=== PATIENT | female | born 1930 | race Caucasian/White ===

== ENCOUNTER 2017-11-12 05:04 | Emergency (ER) | payer MEDICARE, BC ==
[~2017-11-12] VITALS: Ht 127 cm; Wt 57.1 kg
[~2017-11-12 05:04] MED LIST: ATEN25TA72 PO; ATOR40TA71 PO; HYDR1TAB69 PO; LEVO112T5 PO; LISI40TA4 PO; MECL12.584 PO; METF500T4 PO
[2017-11-12] MEDS ORDERED: dexamethasone sod phosphate 10mg/ml inj IV STA (06:43)
[2017-11-12] MEDS ORDERED: ketorolac tromethamine 15mg/ml inj. IV ONE (06:45)
[2017-11-12] MEDS ORDERED: metoclopramide 5 mg/ml inj IV ONE (06:45)
[2017-11-12] MEDS ORDERED: normal saline 1000ml 1,000 ML IV SCH (06:45)
[2017-11-12 07:26] LABS: ALANINE AMINOTRANSFERASE 29 U/L (12-78); ALBUMIN 3.6 G/DL (3.4-5.0); ALBUMIN/GLOBULIN RATIO 1.1 (1.1-1.5); ALKALINE PHOSPHATASE 84 IU/L (46-116); ANION GAP 9 (8-16); ASPARTATE AMINO TRANSFERASE 22 U/L (10-37); BILIRUBIN,TOTAL 1.2 MG/DL (0.1-1.0); BLOOD UREA NITROGEN 12 MG/DL (7-18); CALCIUM 9.1 MG/DL (8.5-10.1); CHLORIDE 107 MMOL/L (99-107); GLUCOSE 102 MG/DL (70-104); POTASSIUM 3.9 MMOL/L (3.5-5.1); SODIUM 143 MMOL/L (135-145); TOTAL CARBON DIOXIDE 27.3 MMOL/L (24-32); TOTAL PROTEIN 6.9 G/DL (6.4-8.2); eGFR 68 ML/MIN
[2017-11-12 09:35] VITALS: BP 182/83
== END 2017-11-12 09:42 | disposition home or self-care (01) ==
LOC: ER 05:04
DX: R51 Headache (principal); I10 Essential (primary) hypertension; E11.9 Type 2 diabetes mellitus without complications; R10.84 Generalized abdominal pain; G89.29 Other chronic pain; E03.9 Hypothyroidism, unspecified; Z90.49 Acquired absence of other specified parts of digestive tract; Z79.899 Other long term (current) drug therapy
CPT/HCPCS: 36415; 70450; 80053; 85651; 96361; 96374; 96375; 99285; J1100; J1885; J2765; J7030

== ENCOUNTER 2017-11-16 15:29 | Emergency (ER) | payer MEDICARE, BC ==
[~2017-11-16] VITALS: Ht 149.9 cm; Wt 50.9 kg
[2017-11-16] MEDS ORDERED: normal saline 1000ml 1,000 ML IV ONE (15:52)
[2017-11-16] MEDS ORDERED: morphine 2 MG/ML inj. syringe IV PRN (15:55)
[2017-11-16] MEDS ORDERED: normal saline 1000ML IV soln IVB ONE (15:55)
[2017-11-16] MEDS ORDERED: proCHLORperazine 10 MG/2 ml inj IV ONE (15:55)
[2017-11-16 16:35] LABS: MEAN CORPUSCULAR HGB CONC 35.4 % (33.0-36.5); NEUTROPHILS # (AUTO) 9.3 X10'3 (1.8-7.7)
[2017-11-16 16:37] LABS: BASOPHILS % (AUTO) 0.4 % (0-1); EOSINOPHILS # (AUTO) 0.2 X10'3 (0-0.9); EOSINOPHILS % (AUTO) 1.9 % (0-6); HEMATOCRIT 50.7 % (35.0-45.0); HEMOGLOBIN 17.9 g/dl (12.0-16.0); LYMPHOCYTES # (AUTO) 1.2 X10'3 (1.1-4.8); LYMPHOCYTES % (AUTO) 10.6 % (21-51); MEAN CORPUSCULAR HEMOGLOBIN 32.4 PG (27.0-31.0); MEAN CORPUSCULAR VOLUME 91.6 FL (78-98); MEAN PLATELET VOLUME 9.3 FL (7.4-10.4); MONOCYTES # (AUTO) 0.4 X10'3 (0-0.9); MONOCYTES % (AUTO) 3.2 % (2-12); NEUTROPHILS % (AUTO) 83.9 % (42-75); PLATELET COUNT 239 X10'3 (140-440); RED BLOOD COUNT 5.54 X10'6 (4.20-5.60); RED CELL DISTRIBUTION WIDTH 13.1 % (11.5-14.5); WHITE BLOOD COUNT 11.1 X10'3 (4.5-11.0)
[2017-11-16 16:43] LABS: PARTIAL THROMBOPLASTIN TIME 25 SECONDS (22-32); PROTHROMBIN TIME 9.9 SECONDS (9.0-12.0)
[2017-11-16 16:53] LABS: ALANINE AMINOTRANSFERASE 29 U/L (12-78); ALBUMIN/GLOBULIN RATIO 1.1 (1.1-1.5); ALKALINE PHOSPHATASE 103 IU/L (46-116); ANION GAP 11 (8-16); ASPARTATE AMINO TRANSFERASE 20 U/L (10-37); BILIRUBIN,TOTAL 1.6 MG/DL (0.1-1.0); BLOOD UREA NITROGEN 15 MG/DL (7-18); BUN/CREATININE RATIO 16.7 (6.6-38.0); CALCIUM 9.6 MG/DL (8.5-10.1); CHLORIDE 100 MMOL/L (99-107); GLUCOSE 134 MG/DL (70-104); LIPASE 212 U/L (73-393); MAGNESIUM 1.7 MG/DL (1.5-2.4); POTASSIUM 3.6 MMOL/L (3.5-5.1); SODIUM 140 MMOL/L (135-145); TOTAL CARBON DIOXIDE 29.2 MMOL/L (24-32); TOTAL PROTEIN 7.8 G/DL (6.4-8.2); eGFR 60 ML/MIN
[2017-11-16] MEDS: diatr meglu/diatrizoate 30ml oral sol.-(3 dose) bottle PO SCH ×3 (18:08→19:29)
[2017-11-16] MEDS ORDERED: iohexol 300mg/ml 100ml inj. ONE (18:31)
[2017-11-16 22:01] LABS: CLARITY,URINE CLEAR (Clear); COLOR,URINE YELLOW (Yellow); GLUCOSE, URINE NEGATIVE (Neg); KETONES,URINE 40 mg/dl (Neg); LEUKOCYTE ESTERASE ,URINE NEGATIVE (Neg); NITRITES, URINE NEGATIVE (Neg); OCCULT BLOOD,URINE NEGATIVE (Neg); PH,URINE 7.5 (4.8-8.0); PROTEIN,URINE NEGATIVE (Neg)
[2017-11-16 22:02] LABS: UA COLLECTION TYPE OTHER
[2017-11-16] MEDS ORDERED: dicyclomine 10 MG capsule PO ONE (22:20)
[2017-11-16] MEDS ORDERED: ONDA4TAB9 SL (22:21)
[2017-11-16] MEDS ORDERED: DICY10CA88 PO (22:21)
[2017-11-16 22:56] VITALS: BP 126/89
== END 2017-11-16 23:00 | disposition home or self-care (01) ==
LOC: ER 15:30
DX: R10.84 Generalized abdominal pain (principal); E86.0 Dehydration; I10 Essential (primary) hypertension; E11.9 Type 2 diabetes mellitus without complications; E03.9 Hypothyroidism, unspecified; Z90.49 Acquired absence of other specified parts of digestive tract; Z79.84 Long term (current) use of oral hypoglycemic drugs
CPT/HCPCS: 36415; 71045; 74018; 74177; 80053; 81003; 83605; 83690; 83735; 84484; 85025; 85610; 85730; 87040; 87502; 87503; 93005; 96361; 96374; 96375; 99285; J0780; J2270; J7030; Q9963; Q9967

== ENCOUNTER 2017-11-25 16:58 | Inpatient (IN) | payer MEDICARE, BC ==
[~2017-11-25] VITALS: Ht 152.4 cm; Wt 54.5 kg
[~2017-11-25 16:58] MED LIST changes: +DICY10CA88 PO
[2017-11-25] MEDS ORDERED: morphine 2 MG/ML inj. syringe IV ONE (17:40)
[2017-11-25] MEDS ORDERED: normal saline 1000ML IV soln IV ONE (17:40)
[2017-11-25] MEDS ORDERED: ondansetron/PF 4mg/2ml inj IV ONE (17:40)
[2017-11-25 18:45] LABS: ALANINE AMINOTRANSFERASE 20 U/L (12-78); ALBUMIN 2.9 G/DL (3.4-5.0); ALBUMIN/GLOBULIN RATIO 0.8 (1.1-1.5); ALKALINE PHOSPHATASE 92 IU/L (46-116); ANION GAP 12 (8-16); ASPARTATE AMINO TRANSFERASE 16 U/L (10-37); BILIRUBIN,TOTAL 0.6 MG/DL (0.1-1.0); BLOOD UREA NITROGEN 27 MG/DL (7-18); BUN/CREATININE RATIO 24.3 (6.6-38.0); CHLORIDE 101 MMOL/L (99-107); CREATININE 1.11 MG/DL (0.40-0.90); GLUCOSE 148 MG/DL (70-104); LIPASE 310 U/L (73-393); SODIUM 141 MMOL/L (135-145); TOTAL CARBON DIOXIDE 28.3 MMOL/L (24-32); TOTAL PROTEIN 6.7 G/DL (6.4-8.2); eGFR 47 ML/MIN
[2017-11-25 18:49] LABS: CALCIUM 9.3 MG/DL (8.5-10.1)
[2017-11-25 18:50] LABS: POTASSIUM 2.8 MMOL/L (3.5-5.1)
[2017-11-25 19:00] LABS: BASOPHILS # (AUTO) 0.1 X10'3 (0-0.2); BASOPHILS % (AUTO) 0.5 % (0-1); EOSINOPHILS # (AUTO) 0.1 X10'3 (0-0.9); EOSINOPHILS % (AUTO) 0.6 % (0-6); HEMATOCRIT 42.5 % (35.0-45.0); HEMOGLOBIN 14.6 g/dl (12.0-16.0); LYMPHOCYTES # (AUTO) 1.5 X10'3 (1.1-4.8); LYMPHOCYTES % (AUTO) 8.8 % (21-51); MEAN CORPUSCULAR HEMOGLOBIN 32.3 PG (27.0-31.0); MEAN CORPUSCULAR HGB CONC 34.3 % (33.0-36.5); MEAN CORPUSCULAR VOLUME 94.3 FL (78-98); MEAN PLATELET VOLUME 9.5 FL (7.4-10.4); MONOCYTES # (AUTO) 0.9 X10'3 (0-0.9); MONOCYTES % (AUTO) 4.9 % (2-12); NEUTROPHILS # (AUTO) 14.8 X10'3 (1.8-7.7); NEUTROPHILS % (AUTO) 85.2 % (42-75); PLATELET COUNT 361 X10'3 (140-440); RED CELL DISTRIBUTION WIDTH 13.1 % (11.5-14.5); WHITE BLOOD COUNT 17.4 X10'3 (4.5-11.0)
[2017-11-25] MEDS ORDERED: potassium Cl 20 mEq/100mL bag IV ONE (19:20)
[2017-11-25] MEDS ORDERED: CefTRIAXone 2gm/NS 100ml IVPB 100 ML IV ONE (19:20)
[2017-11-25] MEDS: potassium 10mEq/100ml NS w/LIDOcaine (10mg/bag) IV SCH ×3 (19:42→23:32)
[2017-11-25 19:48] LABS: CLARITY,URINE SLIGHTLY CLOUDY (Clear); COLOR,URINE YELLOW (Yellow); GLUCOSE, URINE NEGATIVE (Neg); KETONES,URINE 15 mg/dl (Neg); LEUKOCYTE ESTERASE ,URINE NEGATIVE (Neg); NITRITES, URINE NEGATIVE (Neg); OCCULT BLOOD,URINE NEGATIVE (Neg); PROTEIN,URINE NEGATIVE (Neg)
[2017-11-25 19:50] LABS: UA COLLECTION TYPE STRAIGHT CATH
[2017-11-25 19:58] LABS: BACTERIA,URINE FEW /HPF (Neg); MUCUS STRANDS MODERATE /LPF (Neg); RBC,URINE 0-2 /HPF (0-2); SQUAMOUS EPITHELIAL CELL,UR NONE SEEN /LPF (FEW); WBC,URINE 0-4 /HPF (0-4)
[2017-11-25] MEDS ORDERED: pantoprazole 40 MG vial IV ONE (20:30)
[2017-11-25] MEDS ORDERED: pantoprazole IV 80 MG in normal saline 100ml IV soln 100 ML IV ONE (20:30)
[2017-11-25] MEDS ORDERED: ondansetron/PF 4mg/2ml inj IV PRN (20:40)
[2017-11-25] MEDS ORDERED: Potassium Cl inj 20 MEQ in normal saline 1000ml 990 ML IV SCH (20:40)
[2017-11-25 20:42] LABS: OCCULT BLOOD STOOL POSITIVE (Neg)
[2017-11-25 22:20] VITALS: BP 104/53
[2017-11-26] VITALS: BP 106/66
[2017-11-26] MEDS: potassium 10mEq/100ml NS w/LIDOcaine (10mg/bag) IV SCH (00:45)
[2017-11-26 06:04] LABS: BASOPHILS # (AUTO) 0.1 X10'3 (0-0.2); BASOPHILS % (AUTO) 0.5 % (0-1); EOSINOPHILS # (AUTO) 0.4 X10'3 (0-0.9); EOSINOPHILS % (AUTO) 3.4 % (0-6); HEMATOCRIT 33.8 % (35.0-45.0); HEMOGLOBIN 11.8 g/dl (12.0-16.0); LYMPHOCYTES # (AUTO) 1.5 X10'3 (1.1-4.8); LYMPHOCYTES % (AUTO) 12.4 % (21-51); MEAN CORPUSCULAR HEMOGLOBIN 32.6 PG (27.0-31.0); MEAN CORPUSCULAR HGB CONC 34.8 % (33.0-36.5); MEAN CORPUSCULAR VOLUME 93.6 FL (78-98); MEAN PLATELET VOLUME 9.3 FL (7.4-10.4); MONOCYTES # (AUTO) 0.9 X10'3 (0-0.9); MONOCYTES % (AUTO) 7.4 % (2-12); NEUTROPHILS # (AUTO) 9.1 X10'3 (1.8-7.7); NEUTROPHILS % (AUTO) 76.3 % (42-75); PLATELET COUNT 255 X10'3 (140-440); RED BLOOD COUNT 3.62 X10'6 (4.20-5.60); RED CELL DISTRIBUTION WIDTH 13.1 % (11.5-14.5)
[2017-11-26 06:46] LABS: ALANINE AMINOTRANSFERASE 18 U/L (12-78); ALBUMIN 2.1 G/DL (3.4-5.0); ALBUMIN/GLOBULIN RATIO 0.7 (1.1-1.5); ALKALINE PHOSPHATASE 68 IU/L (46-116); ANION GAP 9 (8-16); ASPARTATE AMINO TRANSFERASE 15 U/L (10-37); BILIRUBIN,TOTAL 0.4 MG/DL (0.1-1.0); BLOOD UREA NITROGEN 20 MG/DL (7-18); BUN/CREATININE RATIO 22.5 (6.6-38.0); CALCIUM 7.6 MG/DL (8.5-10.1); CHLORIDE 111 MMOL/L (99-107); CREATININE 0.89 MG/DL (0.40-0.90); GLUCOSE 79 MG/DL (70-104); POTASSIUM 3.9 MMOL/L (3.5-5.1); SODIUM 144 MMOL/L (135-145); TOTAL CARBON DIOXIDE 24.1 MMOL/L (24-32); eGFR 60 ML/MIN
[2017-11-26] MEDS ORDERED: pantoprazole 40 MG vial IV SCH (08:00)
[2017-11-26] MEDS ORDERED: metoprolol tartrate 50mg tablet PO SCH (08:00)
[2017-11-26 11:00] VITALS: BP 109/68
[2017-11-26] MEDS ORDERED: ATOR20TA66 PO (12:34)
[2017-11-26] MEDS ORDERED: normal saline 1000ml 1,000 ML IV SCH (14:48)
[2017-11-26] MEDS ORDERED: LIDOcaine Viscous 15ml cup PO ONE (14:50)
[2017-11-26] MEDS ORDERED: MIDAZolam 1mg/ml 10ml vial IV PRN (14:50)
[2017-11-26] MEDS ORDERED: fentaNYL/PF 50MCG/1 ML 2ML syringe IV PRN (14:50)
[2017-11-26] MEDS ORDERED: simethicone 40mg/0.6ml oral drops 30ml MC ONE (14:50)
[2017-11-26] MEDS ORDERED: fentaNYL/PF 50MCG/1 ML 2ML syringe ONE (15:23)
[2017-11-26] MEDS ORDERED: LIDOcaine Viscous 15ml cup ONE (15:23)
[2017-11-26] MEDS ORDERED: MIDAZolam 1mg/ml 10ml vial ONE (15:23)
[2017-11-26] MEDS ORDERED: levoFLOXACIN-Levaquin 500mg/D5 100 ML IV SCH (16:00)
[2017-11-26] MEDS ORDERED: pantoprazole 40MG/NS 100ML BAG 100 ML IV SCH (16:00)
[2017-11-26] MEDS ORDERED: lactobacillus rhamnosus 10,000 MMU CELLS/CAPSULE PO SCH (17:30)
[2017-11-27] MEDS ORDERED: LISI-600 PO (03:09)
[2017-11-27] MEDS ORDERED: LEVO112T5 PO (03:09)
[2017-11-27] MEDS ORDERED: FLU VACC QS2017-18 36MOS UP/PF 60 MCG/0.5 ML SYRINGE IMVAC ONE (10:00)
== END 2017-11-26 18:00 | disposition left against medical advice (07) | DRG 392 ==
LOC: ER 16:59 → ED HOLD 20:36 → SUR 3N 22:15
PROVIDERS: ADMIT Internal Medicine; ATTEND Family Medicine
DX: K29.80 Duodenitis without bleeding (principal); E86.0 Dehydration; E11.9 Type 2 diabetes mellitus without complications; K92.1 Melena; E87.6 Hypokalemia; E03.9 Hypothyroidism, unspecified; H91.90 Unspecified hearing loss, unspecified ear; I10 Essential (primary) hypertension; Z53.21 Procedure and treatment not carried out due to patient leaving prior to being seen by health care provider; Z90.49 Acquired absence of other specified parts of digestive tract; Z79.899 Other long term (current) drug therapy; Z28.21 Immunization not carried out because of patient refusal
CPT/HCPCS: 36415; 71045; 74176; 80053; 81001; 82272; 83605; 83690; 84145; 85025; 87040; 87070; 87502; 87503; 96361; 96365; 96375; 99285; A4310; A4344; C9113; J0696; J2250; J2270; J2405; J3010; J3480; J7030

== ENCOUNTER 2017-11-27 01:25 | Inpatient (IN) | payer MEDICARE, BC ==
[2017-11-27] VITALS (9 sets, daily range): BP systolic 89–146; BP diastolic 58–68
[~2017-11-27] VITALS: Ht 149.9 cm; Wt 55.5 kg
[~2017-11-27 01:25] MED LIST changes: -ATEN25TA72 PO; +ATOR20TA66 PO; -ATOR40TA71 PO; -DICY10CA88 PO; -HYDR1TAB69 PO; -LEVO112T5 PO; -LISI40TA4 PO; -MECL12.584 PO; -METF500T4 PO
[2017-11-27] MEDS ORDERED: pantoprazole 40mg Tablet.DR PO ONE (01:50)
[2017-11-27 02:17] LABS: BASOPHILS % (AUTO) 0.5 % (0-1); EOSINOPHILS # (AUTO) 0.3 X10'3 (0-0.9); EOSINOPHILS % (AUTO) 2.7 % (0-6); HEMATOCRIT 36.8 % (35.0-45.0); HEMOGLOBIN 12.7 g/dl (12.0-16.0); LYMPHOCYTES # (AUTO) 1.4 X10'3 (1.1-4.8); LYMPHOCYTES % (AUTO) 14.1 % (21-51); MEAN CORPUSCULAR HEMOGLOBIN 32.8 PG (27.0-31.0); MEAN CORPUSCULAR HGB CONC 34.6 % (33.0-36.5); MEAN PLATELET VOLUME 8.6 FL (7.4-10.4); MONOCYTES # (AUTO) 0.6 X10'3 (0-0.9); MONOCYTES % (AUTO) 6.4 % (2-12); NEUTROPHILS # (AUTO) 7.4 X10'3 (1.8-7.7); NEUTROPHILS % (AUTO) 76.3 % (42-75); PLATELET COUNT 324 X10'3 (140-440); RED BLOOD COUNT 3.87 X10'6 (4.20-5.60); RED CELL DISTRIBUTION WIDTH 13.3 % (11.5-14.5); WHITE BLOOD COUNT 9.7 X10'3 (4.5-11.0)
[2017-11-27 02:23] LABS: PARTIAL THROMBOPLASTIN TIME 26 SECONDS (22-32)
[2017-11-27 02:25] LABS: ALANINE AMINOTRANSFERASE 18 U/L (12-78); ALBUMIN 2.7 G/DL (3.4-5.0); ALBUMIN/GLOBULIN RATIO 0.8 (1.1-1.5); ALKALINE PHOSPHATASE 87 IU/L (46-116); ANION GAP 9 (8-16); ASPARTATE AMINO TRANSFERASE 19 U/L (10-37); BILIRUBIN,TOTAL 0.3 MG/DL (0.1-1.0); BLOOD UREA NITROGEN 12 MG/DL (7-18); BUN/CREATININE RATIO 15.2 (6.6-38.0); CALCIUM 8.5 MG/DL (8.5-10.1); CHLORIDE 110 MMOL/L (99-107); CREATININE 0.79 MG/DL (0.40-0.90); GLUCOSE 110 MG/DL (70-104); LIPASE 456 U/L (73-393); MAGNESIUM 1.6 MG/DL (1.5-2.4); POTASSIUM 3.4 MMOL/L (3.5-5.1); SODIUM 147 MMOL/L (135-145); TOTAL CARBON DIOXIDE 27.8 MMOL/L (24-32); TOTAL PROTEIN 6.3 G/DL (6.4-8.2); eGFR 69 ML/MIN
[2017-11-27] MEDS ORDERED: LISI-600 PO (03:09)
[2017-11-27] MEDS ORDERED: LEVO112T5 PO (03:09)
[2017-11-27] MEDS ORDERED: potassium Cl 20 mEq SR tablet PO PRN ×2 (03:10)
[2017-11-27] MEDS ORDERED: magnesium 2GM in 50ml NS 50 ML IV PRN (03:10)
[2017-11-27] MEDS ORDERED: mag hydrox/Alum hydrox/simeth 30ml oral suspension PO PRN (03:10)
[2017-11-27] MEDS ORDERED: ondansetron/PF 4mg/2ml inj IV PRN (03:10)
[2017-11-27] MEDS ORDERED: magnesium hydroxide 30ml (MOM) UD suspension PO PRN (03:10)
[2017-11-27] MEDS ORDERED: magnesium 4gm in 100ml NS 100 ML IV PRN (03:10)
[2017-11-27] MEDS ORDERED: acetaminophen 325mg tablet PO PRN (03:10)
[2017-11-27] MEDS ORDERED: potassium Cl 40MEQ/NS 500ml 500 ML IV PRN ×2 (03:10)
[2017-11-27] MEDS ORDERED: magnesium Cl slow-release 64mg tablet PO PRN (03:10)
[2017-11-27 03:30] LABS: HEMOGLOBIN A1C 5.2 % (4.5-6.2)
[2017-11-27] MEDS: potassium Cl 20mEq in NS 1,000 ML IV SCH ×3 (04:12→23:06)
[2017-11-27] MEDS: pantoprazole 40MG/NS 100ML BAG 100 ML IV SCH ×5 (05:57→23:10)
[2017-11-27] MEDS: K and/or MAG REPLACEMENT MC SCH (07:38)
[2017-11-27] MEDS ORDERED: LIDOcaine 1% 30ml vial 5 ML in potassium Cl 40MEQ/NS 500ml 500 ML IV ONE (09:50)
[2017-11-27] MEDS ORDERED: LIDOcaine 1% 30ml vial 5 ML in potassium Cl 40MEQ/NS 500ml 500 ML IV PRN (10:34)
[2017-11-27] MEDS: levoTHYROXINE 112mcg tablet PO SCH (14:25)
[2017-11-27] MEDS ORDERED: LIDOcaine Viscous 15ml cup ONE (16:40)
[2017-11-27] MEDS ORDERED: fentaNYL/PF 50MCG/1 ML 2ML syringe ONE (16:40)
[2017-11-27] MEDS ORDERED: MIDAZolam 1mg/ml 10ml vial ONE (16:40)
[2017-11-27] MEDS ORDERED: normal saline 1000ml 1,000 ML IV SCH (17:38)
[2017-11-27] MEDS ORDERED: fentaNYL/PF 50MCG/1 ML 2ML syringe IV PRN (17:40)
[2017-11-27] MEDS ORDERED: simethicone 40mg/0.6ml oral drops 30ml MC ONE (17:40)
[2017-11-27] MEDS ORDERED: MIDAZolam 5mg/5ml vial IV PRN (17:40)
[2017-11-27] MEDS ORDERED: LIDOcaine Viscous 15ml cup PO ONE (17:40)
[2017-11-28] VITALS: BP 122/53
[2017-11-28] MEDS: pantoprazole 40MG/NS 100ML BAG 100 ML IV SCH ×4 (04:31→21:36)
[2017-11-28 05:48] LABS: BASOPHILS # (AUTO) 0.1 X10'3 (0-0.2); BASOPHILS % (AUTO) 1.1 % (0-1); EOSINOPHILS # (AUTO) 0.2 X10'3 (0-0.9); EOSINOPHILS % (AUTO) 4.1 % (0-6); HEMATOCRIT 30.9 % (35.0-45.0); HEMOGLOBIN 10.8 g/dl (12.0-16.0); LYMPHOCYTES # (AUTO) 1.2 X10'3 (1.1-4.8); LYMPHOCYTES % (AUTO) 23.6 % (21-51); MEAN CORPUSCULAR HEMOGLOBIN 32.6 PG (27.0-31.0); MEAN CORPUSCULAR HGB CONC 34.9 % (33.0-36.5); MEAN CORPUSCULAR VOLUME 93.4 FL (78-98); MEAN PLATELET VOLUME 8.5 FL (7.4-10.4); MONOCYTES # (AUTO) 0.5 X10'3 (0-0.9); MONOCYTES % (AUTO) 9.8 % (2-12); NEUTROPHILS # (AUTO) 3.1 X10'3 (1.8-7.7); NEUTROPHILS % (AUTO) 61.4 % (42-75); PLATELET COUNT 243 X10'3 (140-440); RED CELL DISTRIBUTION WIDTH 13.3 % (11.5-14.5); WHITE BLOOD COUNT 5.1 X10'3 (4.5-11.0)
[2017-11-28 06:52] LABS: ALANINE AMINOTRANSFERASE 20 U/L (12-78); ALBUMIN 2.2 G/DL (3.4-5.0); ALBUMIN/GLOBULIN RATIO 0.8 (1.1-1.5); ALKALINE PHOSPHATASE 69 IU/L (46-116); ANION GAP 9 (8-16); ASPARTATE AMINO TRANSFERASE 18 U/L (10-37); BILIRUBIN,TOTAL 0.4 MG/DL (0.1-1.0); BLOOD UREA NITROGEN 6 MG/DL (7-18); BUN/CREATININE RATIO 7.7 (6.6-38.0); CALCIUM 7.9 MG/DL (8.5-10.1); CHLORIDE 112 MMOL/L (99-107); CHOL/HDL RATIO 3.1 (0.00-4.99); CHOLESTEROL 112 MG/DL (0-200); CREATININE 0.78 MG/DL (0.40-0.90); GLUCOSE 77 MG/DL (70-104); HDL CHOLESTEROL 36 MG/DL (35-60); LDL CHOLESTEROL 58 MG/DL (50-100); MAGNESIUM 1.4 MG/DL (1.5-2.4); POTASSIUM 4.5 MMOL/L (3.5-5.1); SODIUM 145 MMOL/L (135-145); TOTAL CARBON DIOXIDE 23.6 MMOL/L (24-32); TRIGLYCERIDES 107 MG/DL (20-135); eGFR 70 ML/MIN
[2017-11-28 07:00] VITALS: BP 132/59
[2017-11-28] MEDS ORDERED: dextrose 50%-water 50ml dispensing syringe IV PRN ×2 (07:30)
[2017-11-28] MEDS ORDERED: MESSAGE TO PHARMACY PO ONE (07:30)
[2017-11-28] MEDS ORDERED: glucagon, human recombinant 1mg kit SUBCUT PRN (07:30)
[2017-11-28] MEDS ORDERED: insulin Lispro (HumaLOG) vial - multi-dose SQ SCH (07:30)
[2017-11-28] MEDS ORDERED: dextrose ORAL solution 15 GM/59 ML bottle PO PRN ×2 (07:30)
[2017-11-28] MEDS: potassium Cl 20mEq in NS 1,000 ML IV SCH ×2 (07:43→19:44)
[2017-11-28] MEDS: atorvastatin 20mg tablet PO SCH (07:43)
[2017-11-28] MEDS: levoTHYROXINE 112mcg tablet PO SCH (07:43)
[2017-11-28] MEDS: lisinopril 20mg tablet PO SCH (07:43)
[2017-11-28] MEDS: K and/or MAG REPLACEMENT MC SCH (08:00)
[2017-11-28 08:13] LABS: HEMATOCRIT 33.8 % (35.0-45.0); HEMOGLOBIN 11.6 g/dl (12.0-16.0); MEAN CORPUSCULAR HEMOGLOBIN 32.2 PG (27.0-31.0); MEAN CORPUSCULAR HGB CONC 34.3 % (33.0-36.5); MEAN CORPUSCULAR VOLUME 93.9 FL (78-98); MEAN PLATELET VOLUME 8.4 FL (7.4-10.4); PLATELET COUNT 284 X10'3 (140-440); RED CELL DISTRIBUTION WIDTH 13.3 % (11.5-14.5); WHITE BLOOD COUNT 5.6 X10'3 (4.5-11.0)
[2017-11-28 11:00] VITALS: BP 133/62
[2017-11-28 15:31] LABS: HEMATOCRIT 34.4 % (35.0-45.0); HEMOGLOBIN 11.9 g/dl (12.0-16.0); MEAN CORPUSCULAR HEMOGLOBIN 32.4 PG (27.0-31.0); MEAN CORPUSCULAR HGB CONC 34.7 % (33.0-36.5); MEAN CORPUSCULAR VOLUME 93.3 FL (78-98); MEAN PLATELET VOLUME 8.3 FL (7.4-10.4); PLATELET COUNT 290 X10'3 (140-440); RED BLOOD COUNT 3.69 X10'6 (4.20-5.60); RED CELL DISTRIBUTION WIDTH 13.4 % (11.5-14.5); WHITE BLOOD COUNT 5.9 X10'3 (4.5-11.0)
[2017-11-28] MEDS: insulin glargine (Lantus) pen - multi-dose SQ SCH (19:46)
[2017-11-28 20:00] VITALS: BP 137/66
[2017-11-29] VITALS: BP 126/70
[2017-11-29] MEDS: pantoprazole 40MG/NS 100ML BAG 100 ML IV SCH ×5 (01:00→22:20)
[2017-11-29 01:07] LABS: BASOPHILS # (AUTO) 0.1 X10'3 (0-0.2); BASOPHILS % (AUTO) 1.5 % (0-1); EOSINOPHILS # (AUTO) 0.3 X10'3 (0-0.9); EOSINOPHILS % (AUTO) 4.1 % (0-6); HEMATOCRIT 31.7 % (35.0-45.0); LYMPHOCYTES # (AUTO) 1.2 X10'3 (1.1-4.8); LYMPHOCYTES % (AUTO) 19.7 % (21-51); MEAN CORPUSCULAR HEMOGLOBIN 32.6 PG (27.0-31.0); MEAN CORPUSCULAR HGB CONC 34.8 % (33.0-36.5); MEAN CORPUSCULAR VOLUME 93.8 FL (78-98); MEAN PLATELET VOLUME 8.9 FL (7.4-10.4); MONOCYTES # (AUTO) 0.5 X10'3 (0-0.9); MONOCYTES % (AUTO) 7.8 % (2-12); NEUTROPHILS # (AUTO) 4.1 X10'3 (1.8-7.7); NEUTROPHILS % (AUTO) 66.9 % (42-75); PLATELET COUNT 282 X10'3 (140-440); RED BLOOD COUNT 3.38 X10'6 (4.20-5.60); RED CELL DISTRIBUTION WIDTH 12.1 % (11.5-14.5); WHITE BLOOD COUNT 6.2 X10'3 (4.5-11.0)
[2017-11-29 01:17] LABS: ALANINE AMINOTRANSFERASE 26 U/L (12-78); ALBUMIN 2.4 G/DL (3.4-5.0); ALBUMIN/GLOBULIN RATIO 0.8 (1.1-1.5); ALKALINE PHOSPHATASE 77 IU/L (46-116); ANION GAP 7 (8-16); ASPARTATE AMINO TRANSFERASE 22 U/L (10-37); BILIRUBIN,TOTAL 0.4 MG/DL (0.1-1.0); BLOOD UREA NITROGEN 5 MG/DL (7-18); BUN/CREATININE RATIO 6.4 (6.6-38.0); CALCIUM 7.7 MG/DL (8.5-10.1); CHLORIDE 111 MMOL/L (99-107); CREATININE 0.78 MG/DL (0.40-0.90); GLUCOSE 81 MG/DL (70-104); MAGNESIUM 2.3 MG/DL (1.5-2.4); POTASSIUM 4.6 MMOL/L (3.5-5.1); SODIUM 143 MMOL/L (135-145); TOTAL CARBON DIOXIDE 24.7 MMOL/L (24-32); TOTAL PROTEIN 5.3 G/DL (6.4-8.2); eGFR 70 ML/MIN
[2017-11-29] MEDS: potassium Cl 20mEq in NS 1,000 ML IV SCH ×2 (05:15→16:29)
[2017-11-29 07:00] VITALS: BP 130/70
[2017-11-29] MEDS: K and/or MAG REPLACEMENT MC SCH (08:00)
[2017-11-29] MEDS: levoTHYROXINE 112mcg tablet PO SCH (08:19)
[2017-11-29] MEDS: lisinopril 20mg tablet PO SCH (08:20)
[2017-11-29] MEDS: atorvastatin 20mg tablet PO SCH (08:20)
[2017-11-29 09:01] LABS: HEMATOCRIT 35.6 % (35.0-45.0); HEMOGLOBIN 12.4 g/dl (12.0-16.0); MEAN CORPUSCULAR HEMOGLOBIN 32.7 PG (27.0-31.0); MEAN CORPUSCULAR HGB CONC 34.9 % (33.0-36.5); MEAN CORPUSCULAR VOLUME 93.7 FL (78-98); MEAN PLATELET VOLUME 8.9 FL (7.4-10.4); PLATELET COUNT 324 X10'3 (140-440); RED CELL DISTRIBUTION WIDTH 13.1 % (11.5-14.5)
[2017-11-29 11:00] VITALS: BP 147/59
[2017-11-29 15:46] LABS: HEMATOCRIT 35.7 % (35.0-45.0); HEMOGLOBIN 12.3 g/dl (12.0-16.0); MEAN CORPUSCULAR HEMOGLOBIN 32.1 PG (27.0-31.0); MEAN CORPUSCULAR HGB CONC 34.4 % (33.0-36.5); MEAN CORPUSCULAR VOLUME 93.4 FL (78-98); MEAN PLATELET VOLUME 8.6 FL (7.4-10.4); PLATELET COUNT 310 X10'3 (140-440); RED BLOOD COUNT 3.82 X10'6 (4.20-5.60); RED CELL DISTRIBUTION WIDTH 13.4 % (11.5-14.5); WHITE BLOOD COUNT 6.7 X10'3 (4.5-11.0)
[2017-11-29 20:00] VITALS: BP 155/79
[2017-11-29] MEDS: insulin glargine (Lantus) pen - multi-dose SQ SCH (21:00)
[2017-11-30] MEDS: potassium Cl 20mEq in NS 1,000 ML IV SCH (02:39)
[2017-11-30] MEDS: pantoprazole 40MG/NS 100ML BAG 100 ML IV SCH ×3 (03:36→12:58)
[2017-11-30 05:27] LABS: BASOPHILS % (AUTO) 0.5 % (0-1); EOSINOPHILS # (AUTO) 0.2 X10'3 (0-0.9); EOSINOPHILS % (AUTO) 3.7 % (0-6); HEMATOCRIT 33.2 % (35.0-45.0); HEMOGLOBIN 11.5 g/dl (12.0-16.0); LYMPHOCYTES % (AUTO) 19.5 % (21-51); MEAN CORPUSCULAR HEMOGLOBIN 32.2 PG (27.0-31.0); MEAN CORPUSCULAR HGB CONC 34.6 % (33.0-36.5); MEAN CORPUSCULAR VOLUME 93.1 FL (78-98); MONOCYTES # (AUTO) 0.5 X10'3 (0-0.9); MONOCYTES % (AUTO) 10.5 % (2-12); NEUTROPHILS # (AUTO) 3.2 X10'3 (1.8-7.7); NEUTROPHILS % (AUTO) 65.8 % (42-75); PLATELET COUNT 303 X10'3 (140-440); RED BLOOD COUNT 3.56 X10'6 (4.20-5.60); RED CELL DISTRIBUTION WIDTH 13.2 % (11.5-14.5); WHITE BLOOD COUNT 4.9 X10'3 (4.5-11.0)
[2017-11-30 06:02] LABS: ALANINE AMINOTRANSFERASE 17 U/L (12-78); ALBUMIN 2.5 G/DL (3.4-5.0); ALBUMIN/GLOBULIN RATIO 0.8 (1.1-1.5); ALKALINE PHOSPHATASE 84 IU/L (46-116); ANION GAP 9 (8-16); ASPARTATE AMINO TRANSFERASE 19 U/L (10-37); BILIRUBIN,TOTAL 0.5 MG/DL (0.1-1.0); BLOOD UREA NITROGEN 3 MG/DL (7-18); BUN/CREATININE RATIO 4.1 (6.6-38.0); CALCIUM 8.3 MG/DL (8.5-10.1); CHLORIDE 110 MMOL/L (99-107); CREATININE 0.73 MG/DL (0.40-0.90); GLUCOSE 90 MG/DL (70-104); MAGNESIUM 1.6 MG/DL (1.5-2.4); POTASSIUM 4.7 MMOL/L (3.5-5.1); SODIUM 145 MMOL/L (135-145); TOTAL CARBON DIOXIDE 25.7 MMOL/L (24-32); TOTAL PROTEIN 5.6 G/DL (6.4-8.2); eGFR 76 ML/MIN
[2017-11-30 07:00] VITALS: BP_SYST 125; BP_SYST 159; BP_DIAS 64; BP_DIAS 70
[2017-11-30] MEDS: lisinopril 20mg tablet PO SCH (07:46)
[2017-11-30] MEDS: atorvastatin 20mg tablet PO SCH (07:46)
[2017-11-30] MEDS: levoTHYROXINE 112mcg tablet PO SCH (07:46)
[2017-11-30] MEDS: K and/or MAG REPLACEMENT MC SCH (08:00)
[2017-11-30 12:00] VITALS: BP 119/72
[2017-11-30] MEDS ORDERED: PANT-47 PO ×2 (14:32→16:38)
== END 2017-11-30 17:30 | disposition home or self-care (01) | DRG 377 ==
LOC: ER 01:25 → ED HOLD 03:06 → MED 3N 04:04
PROVIDERS: ADMIT Internal Medicine; ATTEND Family Medicine
PROC: 0DB68ZX Excision of Stomach, Via Natural or Artificial Opening Endoscopic, Diagnostic (ICD-10-PCS; principal; 2017-11-27)
DX: K92.1 Melena (principal); K85.90 Acute pancreatitis without necrosis or infection, unspecified; E87.0 Hyperosmolality and hypernatremia; E11.9 Type 2 diabetes mellitus without complications; D62 Acute posthemorrhagic anemia; K20.9 Esophagitis, unspecified; E03.9 Hypothyroidism, unspecified; E78.5 Hyperlipidemia, unspecified; K29.70 Gastritis, unspecified, without bleeding; K26.9 Duodenal ulcer, unspecified as acute or chronic, without hemorrhage or perforation; I10 Essential (primary) hypertension; E87.6 Hypokalemia; F03.90 Unspecified dementia, unspecified severity, without behavioral disturbance, psychotic disturbance, mood disturbance, and anxiety; K58.9 Irritable bowel syndrome, unspecified; Z79.899 Other long term (current) drug therapy; Z90.12 Acquired absence of left breast and nipple; Z90.49 Acquired absence of other specified parts of digestive tract; Z85.3 Personal history of malignant neoplasm of breast
CPT/HCPCS: 36415; 43239; 80053; 80061; 82948; 83036; 83690; 83735; 85025; 85027; 85610; 85730; 86885; 86900; 86901; 87070; 88305; 88313; 88342; 99285; A4620; C9113; G0500; J1815; J2250; J2405; J3010; J3475; J3480; J3490; J7030

== ENCOUNTER 2018-01-07 08:39 | Emergency (ER) | payer MEDICARE, BC ==
[~2018-01-07] VITALS: Ht 152.4 cm; Wt 53.0 kg
[~2018-01-07 08:39] MED LIST changes: +LEVO112T5 PO; +LISI-600 PO; +PANT-47 PO
[2018-01-07 09:43] LABS: BASOPHILS % (AUTO) 0.7 % (0-1); EOSINOPHILS # (AUTO) 0.1 X10'3 (0-0.9); EOSINOPHILS % (AUTO) 2.1 % (0-6); HEMATOCRIT 38.1 % (35.0-45.0); HEMOGLOBIN 13.1 g/dl (12.0-16.0); LYMPHOCYTES # (AUTO) 1.2 X10'3 (1.1-4.8); LYMPHOCYTES % (AUTO) 22.3 % (21-51); MEAN CORPUSCULAR HEMOGLOBIN 32.4 PG (27.0-31.0); MEAN CORPUSCULAR HGB CONC 34.4 % (33.0-36.5); MEAN CORPUSCULAR VOLUME 94.1 FL (78-98); MEAN PLATELET VOLUME 8.6 FL (7.4-10.4); MONOCYTES # (AUTO) 0.5 X10'3 (0-0.9); MONOCYTES % (AUTO) 8.9 % (2-12); NEUTROPHILS # (AUTO) 3.6 X10'3 (1.8-7.7); PLATELET COUNT 187 X10'3 (140-440); RED BLOOD COUNT 4.05 X10'6 (4.20-5.60); RED CELL DISTRIBUTION WIDTH 13.7 % (11.5-14.5); WHITE BLOOD COUNT 5.4 X10'3 (4.5-11.0)
[2018-01-07 09:53] LABS: PARTIAL THROMBOPLASTIN TIME 25 SECONDS (22-32)
[2018-01-07 10:08] LABS: ALANINE AMINOTRANSFERASE 27 U/L (12-78); ALBUMIN 3.5 G/DL (3.4-5.0); ALKALINE PHOSPHATASE 85 IU/L (46-116); ANION GAP 9 (8-16); ASPARTATE AMINO TRANSFERASE 21 U/L (10-37); BILIRUBIN,TOTAL 0.8 MG/DL (0.1-1.0); BLOOD UREA NITROGEN 9 MG/DL (7-18); BUN/CREATININE RATIO 13.2 (6.6-38.0); CALCIUM 9.3 MG/DL (8.5-10.1); CHLORIDE 108 MMOL/L (99-107); CREATININE 0.68 MG/DL (0.40-0.90); GLUCOSE 101 MG/DL (70-104); POTASSIUM 4.3 MMOL/L (3.5-5.1); SODIUM 144 MMOL/L (135-145); TOTAL PROTEIN 6.9 G/DL (6.4-8.2); eGFR 82 ML/MIN
[2018-01-07 13:20] VITALS: BP 170/136
[2018-01-07 14:17] LABS: CLARITY,URINE Clear (Clear); COLOR,URINE Yellow (Yellow); GLUCOSE, URINE Negative (Neg); KETONES,URINE Negative (Neg); LEUKOCYTE ESTERASE ,URINE Trace (Neg); NITRITES, URINE Negative (Neg); OCCULT BLOOD,URINE Negative (Neg); PROTEIN,URINE Negative (Neg)
[2018-01-07 14:20] LABS: UA COLLECTION TYPE CLN CATCH MIDSTREAM
[2018-01-07 14:58] LABS: BACTERIA,URINE FEW /HPF (Neg); MUCUS STRANDS FEW /LPF (Neg); RBC,URINE 0-2 /HPF (0-2); SQUAMOUS EPITHELIAL CELL,UR MODERATE /LPF (FEW); WBC,URINE 0-4 /HPF (0-4)
[2018-01-07] MEDS ORDERED: ondansetron 4mg rapidly disintigrating tab PO ONE (15:40)
[2018-01-07] MEDS ORDERED: HYDROcodone/acetaminophen 10/325mg tab PO ONE (15:40)
[2018-01-07 18:49] LABS: OCCULT BLOOD STOOL NEGATIVE (Neg)
== END 2018-01-07 16:15 | disposition home or self-care (01) ==
LOC: ER 08:40
DX: K92.1 Melena (principal); R10.84 Generalized abdominal pain; I10 Essential (primary) hypertension; G89.29 Other chronic pain; M54.2 Cervicalgia; M54.9 Dorsalgia, unspecified; E11.9 Type 2 diabetes mellitus without complications; E03.9 Hypothyroidism, unspecified; Z90.49 Acquired absence of other specified parts of digestive tract; Z79.899 Other long term (current) drug therapy
CPT/HCPCS: 36415; 74176; 80053; 81001; 82272; 85025; 85610; 85730; 87077; 87088; 87186; 99285

== ENCOUNTER 2018-03-15 09:47 | Emergency (ER) | payer MEDICARE, BC ==
[~2018-03-15] VITALS: Ht 149.9 cm; Wt 54.1 kg
[2018-03-15 10:09] VITALS: BP 154/97
[2018-03-15 10:28] LABS: BASOPHILS % (AUTO) 0.6 % (0-1); EOSINOPHILS # (AUTO) 0.1 X10'3 (0-0.9); EOSINOPHILS % (AUTO) 2.9 % (0-6); HEMATOCRIT 37.8 % (35.0-45.0); HEMOGLOBIN 12.8 g/dl (12.0-16.0); LYMPHOCYTES # (AUTO) 1.2 X10'3 (1.1-4.8); LYMPHOCYTES % (AUTO) 26.8 % (21-51); MEAN CORPUSCULAR HEMOGLOBIN 31.3 PG (27.0-31.0); MEAN CORPUSCULAR HGB CONC 33.9 % (33.0-36.5); MEAN CORPUSCULAR VOLUME 92.4 FL (78-98); MONOCYTES # (AUTO) 0.6 X10'3 (0-0.9); NEUTROPHILS # (AUTO) 2.4 X10'3 (1.8-7.7); NEUTROPHILS % (AUTO) 56.7 % (42-75); PLATELET COUNT 164 X10'3 (140-440); RED BLOOD COUNT 4.09 X10'6 (4.20-5.60); RED CELL DISTRIBUTION WIDTH 12.6 % (11.5-14.5); WHITE BLOOD COUNT 4.3 X10'3 (4.5-11.0)
[2018-03-15 10:35] LABS: PARTIAL THROMBOPLASTIN TIME 25 SECONDS (22-32); PROTHROMBIN TIME 10.3 SECONDS (9.0-12.0)
[2018-03-15 10:39] LABS: ALANINE AMINOTRANSFERASE 16 U/L (12-78); ALBUMIN 3.4 G/DL (3.4-5.0); ALKALINE PHOSPHATASE 81 IU/L (46-116); ANION GAP 4 (8-16); ASPARTATE AMINO TRANSFERASE 17 U/L (10-37); BILIRUBIN,TOTAL 0.6 MG/DL (0.1-1.0); BLOOD UREA NITROGEN 9 MG/DL (7-18); BUN/CREATININE RATIO 11.8 (6.6-38.0); CHLORIDE 109 MMOL/L (99-107); CREATININE 0.76 MG/DL (0.40-0.90); GLUCOSE 113 MG/DL (70-104); SODIUM 142 MMOL/L (135-145); TOTAL CARBON DIOXIDE 28.7 MMOL/L (24-32); TOTAL PROTEIN 6.7 G/DL (6.4-8.2); eGFR 72 ML/MIN
[2018-03-15 10:46] LABS: OCCULT BLOOD STOOL NEGATIVE (Neg)
== END 2018-03-15 11:15 | disposition home or self-care (01) ==
LOC: ER 09:48
DX: R10.30 Lower abdominal pain, unspecified (principal); K62.5 Hemorrhage of anus and rectum; I10 Essential (primary) hypertension; E03.9 Hypothyroidism, unspecified; Z90.49 Acquired absence of other specified parts of digestive tract; Z98.890 Other specified postprocedural states; Z79.899 Other long term (current) drug therapy
CPT/HCPCS: 36415; 80053; 82272; 85025; 85610; 85730; 99284

== ENCOUNTER 2018-12-24 08:56 | Emergency (ER) | payer MEDICARE, BC ==
[~2018-12-24] VITALS: Ht 149.9 cm; Wt 58.0 kg
[2018-12-24 09:37] LABS: URINE HCG NEGATIVE (NEG)
[2018-12-24 09:41] LABS: CLARITY,URINE CLEAR (Clear); COLOR,URINE YELLOW (Yellow); GLUCOSE, URINE NEGATIVE (Neg); KETONES,URINE NEGATIVE (Neg); LEUKOCYTE ESTERASE ,URINE NEGATIVE (Neg); NITRITES, URINE NEGATIVE (Neg); OCCULT BLOOD,URINE TRACE-INTACT (Neg); PH,URINE 5.5 (4.8-8.0); PROTEIN,URINE NEGATIVE (Neg); UROBILINOGEN,URINE 0.2 E.U/dL (0.2-1.0)
[2018-12-24 09:45] LABS: UA COLLECTION TYPE CLN CATCH MIDSTREAM
[2018-12-24 09:50] LABS: BACTERIA,URINE NONE SEEN /HPF (Neg); RBC,URINE NONE SEEN /HPF (0-2); SQUAMOUS EPITHELIAL CELL,UR FEW /LPF (FEW); WBC,URINE NONE SEEN /HPF (0-4)
[2018-12-24 09:52] LABS: BASOPHILS # (AUTO) 0.1 X10'3 (0-0.2); EOSINOPHILS # (AUTO) 0.1 X10'3 (0-0.9); HEMOGLOBIN 15.2 g/dl (12.0-16.0); LYMPHOCYTES # (AUTO) 1.3 X10'3 (1.1-4.8); LYMPHOCYTES % (AUTO) 24.3 % (21-51); MEAN CORPUSCULAR HEMOGLOBIN 32.2 PG (27.0-31.0); MEAN CORPUSCULAR HGB CONC 34.5 g/dL (33.0-36.5); MEAN CORPUSCULAR VOLUME 93.4 FL (78-98); MONOCYTES # (AUTO) 0.6 X10'3 (0-0.9); MONOCYTES % (AUTO) 11.6 % (2-12); NEUTROPHILS # (AUTO) 3.2 X10'3 (1.8-7.7); NEUTROPHILS % (AUTO) 61.1 % (42-75); PLATELET COUNT 192 X10'3 (140-440); RED BLOOD COUNT 4.72 X10'6 (4.20-5.60); RED CELL DISTRIBUTION WIDTH 12.8 % (11.5-14.5); WHITE BLOOD COUNT 5.2 X10'3 (4.5-11.0)
[2018-12-24 10:04] LABS: PARTIAL THROMBOPLASTIN TIME 28 SECONDS (22-32); PROTHROMBIN TIME 10.2 SECONDS (9.0-12.0)
--- NOTE | 2018-12-24 10:05 | NUR ---
Per Dr Jurado, hold off on IV access until occult stool is done.
[2018-12-24 10:06] LABS: ALANINE AMINOTRANSFERASE 28 U/L (12-78); ALBUMIN 3.7 G/DL (3.4-5.0); ALKALINE PHOSPHATASE 123 IU/L (46-116); ANION GAP 8 (8-16); ASPARTATE AMINO TRANSFERASE 25 U/L (10-37); BILIRUBIN,TOTAL 0.9 MG/DL (0.1-1.0); BLOOD UREA NITROGEN 7 MG/DL (7-18); BUN/CREATININE RATIO 11.7 (6.6-38.0); CHLORIDE 109 MMOL/L (99-107); GLUCOSE 100 MG/DL (70-104); LIPASE 241 U/L (73-393); POTASSIUM 3.5 MMOL/L (3.5-5.1); SODIUM 145 MMOL/L (135-145); TOTAL CARBON DIOXIDE 28.5 MMOL/L (24-32); TOTAL PROTEIN 7.4 G/DL (6.4-8.2); eGFR > 90 ML/MIN
[2018-12-24 10:51] VITALS: BP 151/106
== END 2018-12-24 11:22 | disposition home or self-care (01) ==
LOC: ER 08:57
DX: R19.5 Other fecal abnormalities (principal); I10 Essential (primary) hypertension; E11.9 Type 2 diabetes mellitus without complications; R42 Dizziness and giddiness; R10.33 Periumbilical pain; E03.9 Hypothyroidism, unspecified; Z90.49 Acquired absence of other specified parts of digestive tract; Z79.899 Other long term (current) drug therapy
CPT/HCPCS: 36415; 71045; 74176; 80053; 81001; 81025; 83690; 85025; 85610; 85730; 86885; 86900; 86901; 93005; 99284

== ENCOUNTER 2019-02-01 13:20 | Inpatient (IN) | payer MEDICARE, BC ==
[~2019-02-01] VITALS: Ht 144.8 cm; Wt 60.7 kg
[2019-02-01 13:59] LABS: EOSINOPHILS # (AUTO) 0.1 X10'3 (0-0.9); EOSINOPHILS % (AUTO) 2.5 % (0-6); HEMOGLOBIN 13.9 g/dl (12.0-16.0); LYMPHOCYTES # (AUTO) 1.1 X10'3 (1.1-4.8); LYMPHOCYTES % (AUTO) 22.9 % (21-51); MEAN CORPUSCULAR HEMOGLOBIN 32.9 PG (27.0-31.0); MEAN CORPUSCULAR HGB CONC 35.6 g/dL (33.0-36.5); MEAN CORPUSCULAR VOLUME 92.3 FL (78-98); MEAN PLATELET VOLUME 8.8 FL (7.4-10.4); MONOCYTES # (AUTO) 0.5 X10'3 (0-0.9); MONOCYTES % (AUTO) 9.9 % (2-12); NEUTROPHILS # (AUTO) 3.1 X10'3 (1.8-7.7); NEUTROPHILS % (AUTO) 63.7 % (42-75); PLATELET COUNT 181 X10'3 (140-440); RED BLOOD COUNT 4.22 X10'6 (4.20-5.60); WHITE BLOOD COUNT 4.8 X10'3 (4.5-11.0)
[2019-02-01 14:19] LABS: ALANINE AMINOTRANSFERASE 20 U/L (12-78); ALBUMIN 3.2 G/DL (3.4-5.0); ALKALINE PHOSPHATASE 101 IU/L (46-116); ANION GAP 8 (8-16); ASPARTATE AMINO TRANSFERASE 20 U/L (10-37); BILIRUBIN,TOTAL 0.8 MG/DL (0.1-1.0); BLOOD UREA NITROGEN 11 MG/DL (7-18); BUN/CREATININE RATIO 14.5 (6.6-38.0); CALCIUM 9.6 MG/DL (8.5-10.1); CHLORIDE 109 MMOL/L (99-107); CREATININE 0.76 MG/DL (0.40-0.90); GLUCOSE 135 MG/DL (70-104); POTASSIUM 3.9 MMOL/L (3.5-5.1); SODIUM 144 MMOL/L (135-145); TOTAL CARBON DIOXIDE 26.8 MMOL/L (24-32); TOTAL PROTEIN 6.5 G/DL (6.4-8.2); eGFR 72 ML/MIN
[2019-02-01 14:22] LABS: PARTIAL THROMBOPLASTIN TIME 26 SECONDS (22-32)
[2019-02-01] MEDS ORDERED: heparin 10,000 units/1 ML INJ IV PRN (14:25)
[2019-02-01] MEDS ORDERED: heparin 10,000 units/1 ML INJ IV ONE ×2 (14:25→14:30)
[2019-02-01] MEDS ORDERED: magnesium 4gm in 100ml NS 100 ML IV PRN (14:50)
[2019-02-01] MEDS ORDERED: acetaminophen 325mg tablet PO PRN ×2 (14:50)
[2019-02-01] MEDS ORDERED: potassium Cl 40MEQ/NS 500ml 500 ML IV PRN ×2 (14:50)
[2019-02-01] MEDS ORDERED: magnesium 2GM in 50ml NS 50 ML IV PRN (14:50)
[2019-02-01] MEDS ORDERED: ondansetron/PF 4mg/2ml inj IV PRN (14:50)
[2019-02-01] MEDS ORDERED: mag hydrox/Alum hydrox/simeth 30ml oral suspension PO PRN (14:50)
[2019-02-01] MEDS ORDERED: potassium Cl 20 mEq SR tablet PO PRN ×2 (14:50)
[2019-02-01] MEDS ORDERED: magnesium Cl slow-release 64mg tablet PO PRN (14:50)
[2019-02-01] MEDS ORDERED: magnesium hydroxide 30ml (MOM) UD suspension PO PRN (14:50)
[2019-02-01] MEDS ORDERED: morphine 2 MG/ML inj. syringe IV PRN ×2 (14:50)
[2019-02-01] MEDS: normal saline 1000ml 1,000 ML IV SCH (15:27)
[2019-02-01] MEDS: heparin 25,000 UNIT/250ml bag 250 ML IV SCH (15:31)
[2019-02-01 15:46] LABS: HEMOGLOBIN A1C 5.2 % (4.5-6.2)
[2019-02-01] MEDS ORDERED: HYDR-3965 PO (15:54)
[2019-02-01] MEDS ORDERED: LEVO88TA2 PO ×2 (15:54→18:32)
[2019-02-01] MEDS ORDERED: normal saline 1000ml 1,000 ML IV ONE (15:55)
[2019-02-01] MEDS ORDERED: pantoprazole 40 MG vial IV ONE (15:55)
--- NOTE | 2019-02-01 16:00 | NUR ---
Dr. Cheema at bedside and gave verbal order for NS bolus, IV protonix x1, KUB, and nitroglycerin SL x1.
[2019-02-01] MEDS: nitroGLYCERIN 0.4mg SUBLingual tab SL PRN (16:13)
--- NOTE | 2019-02-01 18:25 | NUR ---
dr graham, cardiology, at bedside now talking with pt and family about going to chemistry laboratory technician in am.
[2019-02-01] MEDS ORDERED: HYDR-4383 PO (18:31)
[2019-02-01] MEDS ORDERED: LISI-600 PO (18:31)
--- NOTE | 2019-02-01 19:45 | NUR ---
pt up to jacob armijo gave her extra blankets
--- NOTE | 2019-02-01 19:53 | NUR ---
family here now
--- NOTE | 2019-02-01 21:14 | NUR ---
pt son leaving now. given ER nurses station phone number. pt to likely be admit hold in er through the night d/t no pcu beds avail.
--- NOTE | 2019-02-01 22:46 | NUR ---
6HR CARDIAC PTT = 80. HEP GTT STOPPED FOR NEXT 60 MIN, THEN TO RESTART AT 600 U/HR.
--- NOTE | 2019-02-01 23:40 | NUR ---
DR. BEAN UPDATED OF PT'S ANXIETY AND CP AND REPETE EKG. PT NOW LYING BACK IN THE BED ON HER RIGHT SIDE WITH BLANKETS COVERING TO HER SHOUDERS.
--- NOTE | 2019-02-01 23:43 | NUR ---
pt sat up and used call light and reporting significant cp now, awakened from her sleep. ekg in process now. pt is awaiting ipa.
[2019-02-02] VITALS (13 sets, daily range): BP systolic 132–170; BP diastolic 58–83
[2019-02-02] MEDS: nitroGLYCERIN 0.4mg SUBLingual tab SL PRN (00:11)
[2019-02-02] MEDS: normal saline 1000ml 1,000 ML IV SCH ×2 (00:48→10:48)
[2019-02-02 01:50] LABS: EOSINOPHILS # (AUTO) 0.2 X10'3 (0-0.9); EOSINOPHILS % (AUTO) 3.5 % (0-6); HEMATOCRIT 35.6 % (35.0-45.0); HEMOGLOBIN 12.1 g/dl (12.0-16.0); LYMPHOCYTES # (AUTO) 1.3 X10'3 (1.1-4.8); LYMPHOCYTES % (AUTO) 29.8 % (21-51); MEAN CORPUSCULAR VOLUME 94.4 FL (78-98); MEAN PLATELET VOLUME 9.2 FL (7.4-10.4); MONOCYTES # (AUTO) 0.5 X10'3 (0-0.9); MONOCYTES % (AUTO) 11.3 % (2-12); NEUTROPHILS # (AUTO) 2.4 X10'3 (1.8-7.7); NEUTROPHILS % (AUTO) 54.4 % (42-75); PLATELET COUNT 135 X10'3 (140-440); RED BLOOD COUNT 3.77 X10'6 (4.20-5.60); RED CELL DISTRIBUTION WIDTH 12.9 % (11.5-14.5); WHITE BLOOD COUNT 4.4 X10'3 (4.5-11.0)
[2019-02-02 02:05] LABS: ALBUMIN 2.7 G/DL (3.4-5.0); ANION GAP 10 (8-16); BLOOD UREA NITROGEN 9 MG/DL (7-18); CALCIUM 8.3 MG/DL (8.5-10.1); CHLORIDE 110 MMOL/L (99-107); GLUCOSE 91 MG/DL (70-104); MAGNESIUM 1.4 MG/DL (1.5-2.4); POTASSIUM 3.6 MMOL/L (3.5-5.1); SODIUM 145 MMOL/L (135-145); TOTAL CARBON DIOXIDE 24.9 MMOL/L (24-32); eGFR > 90 ML/MIN
--- NOTE | 2019-02-02 06:00 | NUR ---
dr graham at bedside, plan to go to microbiology lab manager remains. pt's at bedside. requests to turn off heparin gtt now.
[2019-02-02] MEDS ORDERED: LIDOcaine 1% (10mg/ml)w/preservative injection 20ml MDV ONE (06:01)
[2019-02-02] MEDS ORDERED: iohexol 350MG/ML 100ml bottle IV ONE (06:01)
[2019-02-02] MEDS ORDERED: fentaNYL/PF 50MCG/1 ML 2ML syringe ONE (06:01)
[2019-02-02] MEDS ORDERED: midazolam 2 mg/2 ml injection ONE (06:01)
[2019-02-02] MEDS ORDERED: heparin 25,000 UNIT/250ml bag 250 ML IV ONE (06:33)
--- NOTE | 2019-02-02 06:47 | NUR ---
I RECEIVED REPORT FROM GAURAV RN IN [employer]. HAD OPPORTUNITY TO ASK QUESTIONS. ACCE ROOM 312 PREPPED FOR PATIENT ARRIVAL.
--- NOTE | 2019-02-02 06:55 | NUR ---
PATIENT ARRIVED TO ACCE UNIT ROOM 312 FROM CARE PARTNER IN STABLE CONDITION. BP NOTED TO BE ELEVATED 160s/60s. MORNING MEDICATIONS HAVE NOT BEEN GIVEN YET. ORDER FOR LOPRESSOR TO GIVE THIS AM. OTHER VITALS WNL HR 66, RR 15, O2 98% RA, T 98.2F, PATIENT DENIES PAIN AT THIS TIME. RIGHT GROIN SITE CDI, WITHOUT BLEEDING OR HEMATOMA AT THIS TIME. HEPARIN GTT AND NS INFUSING PER DR. MAHONEY ORDERS. ORDERS FAXED TO PHARMACY AND ADMITTING. DORSAL PEDAL PULSES RIGHT PALPABLE AND STRONG, LEFT DOPPLER WEAK, BILAT DORSAL PULSES MARKED WITH BLACK PEN. WILL CONTINUE TO MONITOR. POST-OP EDUCATION GIVEN R/T RIGHT LEG STRAIGHT AND LAY FLAT X4 HOURS AND NPO STATUS.
[2019-02-02 07:23] LABS: CHOL/HDL RATIO 2.3 (0.00-4.99); CHOLESTEROL 110 MG/DL (0-200); HDL CHOLESTEROL 47 MG/DL (35-60); LDL CHOLESTEROL 55 MG/DL (50-100); TRIGLYCERIDES 88 MG/DL (20-135)
[2019-02-02] MEDS ORDERED: metoprolol tartrate 25mg tablet PO SCH (08:00)
[2019-02-02] MEDS: K and/or MAG REPLACEMENT MC SCH (08:00)
[2019-02-02] MEDS ORDERED: atorvastatin 20mg tablet PO SCH ×2 (08:00→21:00)
--- NOTE | 2019-02-02 08:00 | NUR ---
2 RN SKIN CHECK: NOTED REDNESS TO UNDER BREAST AND UNDER PANNUS, NO OPEN WOUNDS W/ LESA MORALES
[2019-02-02] MEDS: levoTHYROXINE 75mcg tablet PO SCH (08:06)
[2019-02-02] MEDS: pantoprazole 40 MG vial IV SCH (08:06)
[2019-02-02] MEDS: aspirin 81mg tab.chew PO SCH (08:07)
--- NOTE | 2019-02-02 08:28 | NUR ---
MG 1.4, ORDERS FOR REPLACEMENT ON PROFILE. WILL INFUSING MG PER PROTOCOL POST NS INFUSING.
--- NOTE | 2019-02-02 11:16 | NUR ---
PATIENT ABLE TO AMBULATE TO RESTROOM, 1 PERSON ASSIST, R GROIN SITE CDI, NO BLEEDING OR HEMATOMA NOTED.
[2019-02-02] MEDS ORDERED: heparin 10,000 units/1 ML INJ ONE ×2 (12:00)
--- NOTE | 2019-02-02 12:45 | NUR ---
PAGER ID: [phone] MESSAGE: [phone]: REA - c/o back pain. only has morphine for pain. can we have order for [place]? pt takes [place] 5mg at home. thank you nurse cuong [phone]
--- NOTE | 2019-02-02 12:51 | NUR ---
dr. araujo called back. new order received: norco 5/325mg 1 tab po q4h prn for mod-sever pain 4-10
[2019-02-02] MEDS: HYDROcodone/acetaminophen 5mg/325mg tablet PO PRN ×2 (13:19→21:19)
--- NOTE | 2019-02-02 13:50 | NUR ---
CARDIAC PTT 79, PER PROTOCOL HEP GTT OFF X1 HR, THEN DECREASE BY 2UNITS/KG/HR, RECHECK CARDIAC PTT 6 HR POST RATE CHANGE. WILL CONTINUE TO MONITOR.
[2019-02-02] MEDS: heparin 25,000 UNIT/250ml bag 250 ML IV SCH ×2 (14:57→22:10)
--- NOTE | 2019-02-02 15:25 | NUR ---
PAGER ID: [phone] MESSAGE: [phone]: REA - TSH < 0.01. Do you want to D/C or hold synthroid> nurse cuong ext [phone]
--- NOTE | 2019-02-02 15:27 | NUR ---
dr. araujo called back. no new orders r/t synthroid dose. informed that patient home dose already decreased in hospital.
[2019-02-02] MEDS ORDERED: MESSAGE TO NURSING PO ONE ×7 (15:40→20:30)
[2019-02-02 16:18] LABS: ANION GAP 9 (8-16); BLOOD UREA NITROGEN 8 MG/DL (7-18); BUN/CREATININE RATIO 11.9 (6.6-38.0); CALCIUM 8.9 MG/DL (8.5-10.1); CHLORIDE 110 MMOL/L (99-107); CREATININE 0.67 MG/DL (0.40-0.90); GLUCOSE 97 MG/DL (70-104); POTASSIUM 3.9 MMOL/L (3.5-5.1); SODIUM 143 MMOL/L (135-145); TOTAL CARBON DIOXIDE 24.3 MMOL/L (24-32); eGFR 83 ML/MIN
--- NOTE | 2019-02-02 16:19 | NUR ---
LOAN OPERATIONS MANAGER CALLED. WONDERING WHEN SURGERY IS SCHEDULED. INFORMED THAT MD HAS NOT TOLD ME SPECIFICALLY SO WE WILL TREAT IF SHE IS 1ST CASE IN AM 02/03. TECH WILL COME DO CAROTIDS AND VEIN MAPPING.
[2019-02-02 16:31] LABS: PARTIAL THROMBOPLASTIN TIME 58 SECONDS (22-32)
--- NOTE | 2019-02-02 16:35 | NUR ---
VASCULAR AT BEDSIDE RESPIRATORY PAGED TO COME DO PFTs AND ABGs.
[2019-02-02 16:59] LABS: HEMATOCRIT 38.2 % (35.0-45.0); MEAN CORPUSCULAR HEMOGLOBIN 32.1 PG (27.0-31.0); MEAN CORPUSCULAR HGB CONC 33.9 g/dL (33.0-36.5); MEAN CORPUSCULAR VOLUME 94.5 FL (78-98); MEAN PLATELET VOLUME 9.7 FL (7.4-10.4); PLATELET COUNT 140 X10'3 (140-440); RED BLOOD COUNT 4.04 X10'6 (4.20-5.60); RED CELL DISTRIBUTION WIDTH 12.9 % (11.5-14.5)
--- NOTE | 2019-02-02 17:12 | NUR ---
DR. MAHONEY AT BEDSIDE
[2019-02-02 18:00] LABS: ABG BASE EXCESS -3.4 mmol/L (-2.0-3.0); ABG HCO3 19.8 mmol/L (22.0-26.0); ABG OXYGEN SATURATION 96.8 % (95-98); ABG PCO2 (T) 30.6 mmHg (32.0-45.0); ABG PH (T) 7.428 (7.350-7.450); ABG PO2 (T) 88.3 mmHg (83-108); ALLEN'S TEST Positive; FCOHb 0.8 % (0.5-1.5); FMetHb 0.4 % (0.3-1.12); FO2Hb 95.6 % (94-100); TOTAL HEMOGLOBIN 14.4 G/dl (12.0-16.0)
--- NOTE | 2019-02-02 18:06 | NUR ---
PAGER ID: [phone] MESSAGE: [phone]: REA - CO2 30.6, HCO3 19.8 on ABGs - do you want to start a BICARB DRIP? nurse dahiana ext [phone]
--- NOTE | 2019-02-02 18:08 | NUR ---
dr. araujo called back - no new orders at this time
--- NOTE | 2019-02-02 18:21 | NUR ---
Problems reprioritized. Patient report given, questions answered & plan of care reviewed with dahiana villalba rn.
--- NOTE | 2019-02-02 18:47 | NUR ---
Patient in room MED 312. I have received report from Virgen MCFADDEN and had the opportunity to ask questions and assume patient care.
[2019-02-02] MEDS ORDERED: dextrose 50%-water 50ml dispensing syringe IV PRN (20:30)
[2019-02-02] MEDS ORDERED: insulin glargine (Lantus) pen - multi-dose SQ PRN (20:30)
[2019-02-02] MEDS ORDERED: ringers solution, lacted 1,000 ML IV ONE (21:05)
[2019-02-02] MEDS: metoprolol tartrate 12.5mg (1/2 tablet) PO SCH (21:18)
[2019-02-02] MEDS: mupirocin 2% nasal ointment 1gm UD NS SCH (21:20)
[2019-02-03] VITALS (16 sets, daily range): BP systolic 111–160; BP diastolic 51–99
[2019-02-03 01:41] LABS: CLARITY,URINE CLEAR (Clear); COLOR,URINE YELLOW (Yellow); GLUCOSE, URINE NEGATIVE (Neg); KETONES,URINE NEGATIVE (Neg); LEUKOCYTE ESTERASE ,URINE TRACE (Neg); NITRITES, URINE NEGATIVE (Neg); OCCULT BLOOD,URINE TRACE-INTACT (Neg); PROTEIN,URINE NEGATIVE (Neg)
[2019-02-03 01:46] LABS: UA COLLECTION TYPE NON-SPECIFIED
[2019-02-03 01:47] LABS: BACTERIA,URINE 1+ /HPF (Neg); RBC,URINE 0-2 /HPF (0-2); SQUAMOUS EPITHELIAL CELL,UR FEW /LPF (FEW); WBC,URINE 0-4 /HPF (0-4)
[2019-02-03 04:42] LABS: BASOPHILS % (AUTO) 0.9 % (0-1); EOSINOPHILS # (AUTO) 0.2 X10'3 (0-0.9); EOSINOPHILS % (AUTO) 4.1 % (0-6); HEMATOCRIT 36.9 % (35.0-45.0); HEMOGLOBIN 12.5 g/dl (12.0-16.0); LYMPHOCYTES # (AUTO) 1.2 X10'3 (1.1-4.8); LYMPHOCYTES % (AUTO) 23.6 % (21-51); MEAN CORPUSCULAR HEMOGLOBIN 31.7 PG (27.0-31.0); MEAN CORPUSCULAR HGB CONC 33.8 g/dL (33.0-36.5); MEAN CORPUSCULAR VOLUME 93.7 FL (78-98); MEAN PLATELET VOLUME 9.2 FL (7.4-10.4); MONOCYTES # (AUTO) 0.7 X10'3 (0-0.9); MONOCYTES % (AUTO) 12.8 % (2-12); NEUTROPHILS # (AUTO) 3.1 X10'3 (1.8-7.7); NEUTROPHILS % (AUTO) 58.6 % (42-75); PLATELET COUNT 144 X10'3 (140-440); RED BLOOD COUNT 3.93 X10'6 (4.20-5.60); RED CELL DISTRIBUTION WIDTH 13.1 % (11.5-14.5); WHITE BLOOD COUNT 5.2 X10'3 (4.5-11.0)
[2019-02-03 04:51] LABS: ANION GAP 7 (8-16); BLOOD UREA NITROGEN 6 MG/DL (7-18); BUN/CREATININE RATIO 9.8 (6.6-38.0); CALCIUM 8.4 MG/DL (8.5-10.1); CHLORIDE 109 MMOL/L (99-107); CREATININE 0.61 MG/DL (0.40-0.90); GLUCOSE 93 MG/DL (70-104); MAGNESIUM 2.3 MG/DL (1.5-2.4); SODIUM 142 MMOL/L (135-145); TOTAL CARBON DIOXIDE 26.2 MMOL/L (24-32); eGFR > 90 ML/MIN
[2019-02-03 04:52] LABS: POTASSIUM 3.6 MMOL/L (3.5-5.1)
[2019-02-03] MEDS ORDERED: LORazepam 2 mg/ml vial IV ONE (06:00)
[2019-02-03] MEDS: heparin 25,000 UNIT/250ml bag 250 ML IV SCH (06:18)
--- NOTE | 2019-02-03 07:40 | NUR ---
PAGED RT FOR ABG "NEED ABG NOW FOR PRE OP IN 312 RHEA REA. THANK YOU, MISBAH AGUIRRE [phone]"
[2019-02-03] MEDS ORDERED: metoprolol tartrate 12.5mg (1/2 tablet) PO SCH (08:00)
[2019-02-03] MEDS ORDERED: NUT.TX.IMPAIRED DIGEST FXN (Ensure Clear) 237 ML PO ONE (08:00)
[2019-02-03] MEDS ORDERED: mupirocin 2% nasal ointment 1gm UD NS SCH (08:00)
[2019-02-03] MEDS: K and/or MAG REPLACEMENT MC SCH (08:00)
[2019-02-03] MEDS ORDERED: ceFAZolin 1000mg inj ONE (08:48)
[2019-02-03] MEDS ORDERED: LIDOcaine 1% 30ml preserv. free vial ONE (08:48)
[2019-02-03] MEDS ORDERED: ROPIVAcaine 0.5% (5mg/ml) 30ml vial ONE (08:48)
[2019-02-03] MEDS: aspirin 81mg tab.chew PO SCH (08:54)
[2019-02-03] MEDS: metoprolol tartrate 12.5mg (1/2 tablet) PO SCH (08:54)
[2019-02-03] MEDS: pantoprazole 40 MG vial IV SCH (08:54)
[2019-02-03] MEDS: mupirocin 2% nasal ointment 1gm UD NS SCH ×2 (08:54→19:44)
[2019-02-03] MEDS: levoTHYROXINE 75mcg tablet PO SCH (08:54)
[2019-02-03] MEDS ORDERED: gabapentin 400mg capsule PO ONE (10:00)
[2019-02-03] MEDS: insulin regular, human 100 UNIT in normal saline 100ml IV soln 100 ML IV SCH ×2 (10:00)
[2019-02-03] MEDS ORDERED: vancomycin/NS 1 GM ADD-VANTAGE 250 ML IV ONE (10:00)
[2019-02-03] MEDS ORDERED: cefazolin/dext.iso 2gm/100ml 100 ML IV ONE (10:00)
[2019-02-03] MEDS ORDERED: MESSAGE TO NURSING PO ONE ×2 (10:00)
--- NOTE | 2019-02-03 10:05 | NUR ---
ATIVAN GIVEN AND PATIENT OFF FLOOR WITH PRE OP TEAM TO CVOR AT THIS TIME.
[2019-02-03] MEDS ORDERED: DOPamine/D5W 400mg/250ml bag IV ONE (10:21)
[2019-02-03] MEDS ORDERED: nitroGLYCERIN in D5W 50mg/250ml (Tridil) infusion IV ONE (10:21)
[2019-02-03] MEDS ORDERED: amiodarone in dextrose, iso-osm 150mg/100ml bag IV ONE (10:21)
[2019-02-03] MEDS ORDERED: NORepinephrine bitartrate 8 MG in NS 250 ML BAG (32 mcg/ml) IV ONE (10:21)
[2019-02-03] MEDS ORDERED: phenylephrine 10mg/ml inj. ONE (10:21)
[2019-02-03] MEDS ORDERED: protamine sulf. 10mg/ml inj. IV ONE (10:21)
[2019-02-03] MEDS ORDERED: aminocaproic acid 250 MG/1 ML inj. ONE (10:21)
[2019-02-03] MEDS ORDERED: sevoflurane 250ml liquid IH ONE (10:21)
[2019-02-03] MEDS ORDERED: MIDAZolam 1mg/ml 10ml vial ONE (10:22)
[2019-02-03] MEDS ORDERED: SUFENTANIL CITRATE 50 MCG/ML 2ml ampule IV ONE (10:22)
[2019-02-03] MEDS ORDERED: pancuronium br 1mg/ml inj IV ONE (10:24)
[2019-02-03] MEDS ORDERED: LIDOcaine 1%/PF 5ML 10 MG/ML VIAL ONE (10:25)
[2019-02-03] MEDS ORDERED: propofol inj 20 ML IV ONE (10:25)
[2019-02-03] MEDS ORDERED: albumin (Human) 5% 250ml 250 ML IV ONE (10:47)
[2019-02-03 10:56] LABS: ABG BASE EXCESS -2.4 mmol/L (-2.0-3.0); ABG HCO3 20.2 mmol/L (22.0-26.0); ABG OXYGEN SATURATION 99.8 % (95-98); ABG PCO2 28.5 mmHg (35.0-45.0); ABG PH 7.469 (7.350-7.450); ABG PO2 478.2 mmHg (60.0-100.0); CL (ABG) 110 mmol/L (99-107); FCOHb 0.7 % (0.5-1.5); FMetHb 0.4 % (0.3-1.12); FO2Hb 98.7 % (94-100); GLUCOSE (ABG) 86 mg/dl (70-105); IONIZED CA (ABG) 1.09 mmol/L (1.03-1.32); K (ABG) 3.6 mmol/L (3.3-5.1); NA (ABG) 138 mmol/L (135-145); TOTAL HEMOGLOBIN 12.1 G/dl (12.0-16.0)
[2019-02-03 11:07] LABS: ACT @ 1.70 U 286 SEC (193-297); ACT @ 2.84 U 390 SEC (260-420); BASELINE ACT 162 SEC (101-148); PATIENT WEIGHT 55.0k KG
[2019-02-03] MEDS ORDERED: labetalol 5mg/ml 20ml inj. IV ONE (11:11)
[2019-02-03] MEDS ORDERED: heparin 10,000 units/1 ML INJ IR ONE ×2 (11:20→11:21)
[2019-02-03 12:51] LABS: ABG BASE EXCESS VENOUS -5.5 mmol/L; ABG PCO2 VENOUS 33.7 mmHg; ABG PO2 VENOUS 48.2 mmHg; CL (ABG) 109 mmol/L (99-107); FCOHb VENOUS 0.6 %; FHHb VENOUS 17.1 %; FMetHb VENOUS 0.4 %; FO2Hb VENOUS 81.9 %; GLUCOSE (ABG) 137 mg/dl (70-105); IONIZED CA (ABG) 1.03 mmol/L (1.03-1.32); K (ABG) 3.2 mmol/L (3.3-5.1); NA (ABG) 137 mmol/L (135-145); TOTAL HEMOGLOBIN 10.9 G/dl (12.0-16.0)
[2019-02-03] MEDS ORDERED: HYDROcodone/acetaminophen 10/325mg tab PO PRN (13:00)
[2019-02-03] MEDS: gabapentin 300mg capsule PO SCH ×2 (13:00→21:00)
[2019-02-03] MEDS ORDERED: niCARDipine-NS 40mg/200ml IVPB 200 ML IV PRN (13:00)
[2019-02-03] MEDS ORDERED: sodium phosphate inj. 15 MMOL in dextrose 5%-water 150 ML IV PRN (13:00)
[2019-02-03] MEDS ORDERED: dextrose 50%-water 50ml dispensing syringe IV PRN (13:00)
[2019-02-03] MEDS ORDERED: insulin regular, human inj. 100 UNITS in normal saline 100ml IV soln 100 ML IV SCH ×2 (13:00)
[2019-02-03] MEDS ORDERED: albumin (Human) 5% 250ml 250 ML IV PRN (13:00)
[2019-02-03] MEDS ORDERED: magnesium 2GM in 50ml NS 50 ML IV PRN (13:00)
[2019-02-03] MEDS: insulin Lispro (HumaLOG) vial - multi-dose SQ SCH ×2 (13:00→17:09)
[2019-02-03] MEDS ORDERED: Neutra Phos packet PO PRN (13:00)
[2019-02-03] MEDS ORDERED: sodium phosphate inj. 30 MMOL in dextrose 5%-water 250 ML IV PRN (13:00)
[2019-02-03] MEDS ORDERED: metoclopramide 5 mg/ml inj IV PRN (13:00)
[2019-02-03] MEDS ORDERED: pantoprazole 40 MG vial IV ONE (13:00)
[2019-02-03] MEDS ORDERED: acetaminophen 325mg tablet PO PRN (13:00)
[2019-02-03] MEDS ORDERED: nitroGLYCERIN-Tridil 50MG/D5W 250 ML IV PRN (13:00)
[2019-02-03] MEDS ORDERED: morphine 4 MG/ML inj SYRINge IV PRN (13:00)
[2019-02-03] MEDS ORDERED: magnesium hydroxide 30ml (MOM) UD suspension PO PRN (13:00)
[2019-02-03] MEDS ORDERED: potassium Cl 20 mEq SR tablet PO PRN (13:00)
[2019-02-03] MEDS ORDERED: magnesium 4gm in 100ml NS 100 ML IV PRN (13:00)
--- NOTE | 2019-02-03 13:20 | NUR ---
Received to room 2043, accompanied by MDs and surgical crew. Placed on ventilator, to button sewing machine operator, arterial line and PA line pressure monitored. Chest tubes to suction at 20 cm. Pedroza cath to gravity drainage. Dressings are dry and intact. See assessment record. All vasoactive drugs are infusing via central line.
[2019-02-03 13:41] LABS: ABG BASE EXCESS -5.2 mmol/L (-2.0-3.0); ABG HCO3 18.9 mmol/L (22.0-26.0); ABG OXYGEN SATURATION 99.1 % (95-98); ABG PCO2 (T) 27.8 mmHg (32.0-45.0); ABG PH (T) 7.436 (7.350-7.450); ABG PO2 (T) 227.7 mmHg (83-108); FCOHb 0.3 % (0.5-1.5); FMetHb 0.2 % (0.3-1.12); FO2Hb 98.6 % (94-100); PATIENT TEMPERATURE 33.6; PEEP 5 cm H2O; RESPIRATORY RATE 10 b/min; TIDAL VOLUME 500 mL; TOTAL HEMOGLOBIN 12.1 G/dl (12.0-16.0)
[2019-02-03 13:50] LABS: BASOPHILS % (AUTO) 0.6 % (0-1); EOSINOPHILS # (AUTO) 0.1 X10'3 (0-0.9); EOSINOPHILS % (AUTO) 2.9 % (0-6); HEMATOCRIT 32.7 % (35.0-45.0); HEMOGLOBIN 11.3 g/dl (12.0-16.0); LYMPHOCYTES # (AUTO) 0.6 X10'3 (1.1-4.8); MEAN CORPUSCULAR HEMOGLOBIN 32.2 PG (27.0-31.0); MEAN CORPUSCULAR HGB CONC 34.4 g/dL (33.0-36.5); MEAN CORPUSCULAR VOLUME 93.5 FL (78-98); MEAN PLATELET VOLUME 9.3 FL (7.4-10.4); MONOCYTES % (AUTO) 1.3 % (2-12); NEUTROPHILS # (AUTO) 2.9 X10'3 (1.8-7.7); NEUTROPHILS % (AUTO) 78.2 % (42-75); PLATELET COUNT 98 X10'3 (140-440); RED CELL DISTRIBUTION WIDTH 13.1 % (11.5-14.5); WHITE BLOOD COUNT 3.7 X10'3 (4.5-11.0)
[2019-02-03 13:58] LABS: ALANINE AMINOTRANSFERASE 19 U/L (12-78); ALBUMIN 2.6 G/DL (3.4-5.0); ALBUMIN/GLOBULIN RATIO 1.2 (1.1-1.5); ALKALINE PHOSPHATASE 70 IU/L (46-116); ANION GAP 7 (8-16); ASPARTATE AMINO TRANSFERASE 22 U/L (10-37); BILIRUBIN,TOTAL 0.9 MG/DL (0.1-1.0); BLOOD UREA NITROGEN 6 MG/DL (7-18); BUN/CREATININE RATIO 10.7 (6.6-38.0); CALCIUM 7.4 MG/DL (8.5-10.1); CHLORIDE 112 MMOL/L (99-107); CREATININE 0.56 MG/DL (0.40-0.90); GLUCOSE 139 MG/DL (70-104); MAGNESIUM 1.5 MG/DL (1.5-2.4); PHOSPHORUS 2.5 MG/DL (2.3-4.5); POTASSIUM 3.1 MMOL/L (3.5-5.1); SODIUM 142 MMOL/L (135-145); TOTAL CARBON DIOXIDE 22.6 MMOL/L (24-32); TOTAL PROTEIN 4.7 G/DL (6.4-8.2); eGFR > 90 ML/MIN
[2019-02-03 14:01] LABS: INR 1.2 INR; PARTIAL THROMBOPLASTIN TIME 29 SECONDS (22-32)
[2019-02-03 14:35] LABS: ACTIVATED CLOTTING TIME 135 SEC (101-148)
[2019-02-03] MEDS: potassium Cl 20mEq/100mL bag 100 ML IV PRN ×2 (16:48→17:58)
[2019-02-03] MEDS: ceFAZolin 1GM/D5W- ADD-VANTAGE 50 ML IV SCH ×2 (16:53→23:56)
[2019-02-03] MEDS: sodium chloride 0.45% 1,000 ML IV SCH (16:59)
[2019-02-03] MEDS: nitroGLYCERIN-Tridil 50MG/D5W 250 ML IV SCH (17:00)
--- NOTE | 2019-02-03 18:22 | NUR ---
Problems reprioritized. Patient report given, questions answered & plan of care reviewed with oncoming shift.
--- NOTE | 2019-02-03 18:30 | NUR ---
Patient in room ICU 2043. I have received report from Loyda MCFADDEN, and had the opportunity to ask questions and assume patient care.
--- NOTE | 2019-02-03 19:08 | NUR ---
PT is intubated, tolerating vent settings well, 02 sat 100%. All vaso active medications are being infused through CLV. PA, AL CVP to pressure tubing, ans were zeroed. CTs with sanguineous drainage noted. Pedroza draining to gravity. Bed is locked and low. Bilat soft wrist restraints in place and secure. Will continue to monitor.
[2019-02-03 19:43] LABS: BASOPHILS % (AUTO) 0.3 % (0-1); EOSINOPHILS % (AUTO) 0.4 % (0-6); HEMATOCRIT 34.9 % (35.0-45.0); HEMOGLOBIN 11.8 g/dl (12.0-16.0); LYMPHOCYTES # (AUTO) 0.4 X10'3 (1.1-4.8); LYMPHOCYTES % (AUTO) 3.3 % (21-51); MEAN CORPUSCULAR HEMOGLOBIN 32.1 PG (27.0-31.0); MEAN CORPUSCULAR HGB CONC 33.8 g/dL (33.0-36.5); MEAN CORPUSCULAR VOLUME 94.8 FL (78-98); MEAN PLATELET VOLUME 9.5 FL (7.4-10.4); MONOCYTES # (AUTO) 0.8 X10'3 (0-0.9); MONOCYTES % (AUTO) 7.4 % (2-12); NEUTROPHILS # (AUTO) 9.7 X10'3 (1.8-7.7); NEUTROPHILS % (AUTO) 88.6 % (42-75); PLATELET COUNT 146 X10'3 (140-440); RED BLOOD COUNT 3.68 X10'6 (4.20-5.60); RED CELL DISTRIBUTION WIDTH 13.2 % (11.5-14.5); WHITE BLOOD COUNT 10.9 X10'3 (4.5-11.0)
[2019-02-03] MEDS: docusate sod 100mg capsule PO SCH (19:44)
[2019-02-03] MEDS: vancomycin/NS 1 GM ADD-VANTAGE 250 ML IV SCH (19:44)
[2019-02-03 19:53] LABS: ALBUMIN 2.8 G/DL (3.4-5.0); ANION GAP 8 (8-16); BLOOD UREA NITROGEN 7 MG/DL (7-18); BUN/CREATININE RATIO 11.5 (6.6-38.0); CALCIUM 7.5 MG/DL (8.5-10.1); CHLORIDE 111 MMOL/L (99-107); CREATININE 0.61 MG/DL (0.40-0.90); GLUCOSE 135 MG/DL (70-104); MAGNESIUM 2.3 MG/DL (1.5-2.4); PHOSPHORUS 3.2 MG/DL (2.3-4.5); SODIUM 141 MMOL/L (135-145); TOTAL CARBON DIOXIDE 22.4 MMOL/L (24-32); eGFR > 90 ML/MIN
[2019-02-03] MEDS: morphine 4 MG/ML inj SYRINge IV PRN (21:08)
--- NOTE | 2019-02-03 21:27 | NUR ---
Dr. Chavez called d/t PT having low BP after 2mg morphine administered. Nitro currently off until PT's BP improves. Dr Chavez ordered to give volume. Bottle of albumin being given. Will continue to monitor PT closely.
--- NOTE | 2019-02-03 22:53 | NUR ---
PT placed on CPAP/PS mode on vent. Tolerating well, O2 sat >98%, RR >14
[2019-02-04] VITALS (24 sets, daily range): BP systolic 94–153; BP diastolic 49–89
[2019-02-04 01:01] LABS: ABG BASE EXCESS -5.9 mmol/L (-2.0-3.0); ABG HCO3 17.8 mmol/L (22.0-26.0); ABG OXYGEN SATURATION 98.1 % (95-98); ABG PCO2 (T) 30.4 mmHg (32.0-45.0); ABG PH (T) 7.388 (7.350-7.450); FCOHb 0.3 % (0.5-1.5); FMetHb 0.3 % (0.3-1.12); FO2Hb 97.5 % (94-100); MINUTE VOLUME 10 L/min; PATIENT TEMPERATURE 37.7; PEEP 5 cm H2O; RESPIRATORY RATE (OBSERVED) 30 b/min; TOTAL HEMOGLOBIN 12.2 G/dl (12.0-16.0)
--- NOTE | 2019-02-04 01:25 | NUR ---
Dr. Chavez called d/t PT being highly agitated, HR in 120's, SBP in 170's. Tridil increased from 10mcg to 15, MD made aware. 2mg morphine given and not effective. informed that not all weaning parameters were able to be performed d/t PT being so agitated and not following commands. ABG done, results as well as weaning parameters RT was able to perform were provided. Orders received to extubate PT. PT was successfully extubated at 0110 and placed on 4L NC. Tolerating well, O2 sat >95%. Will continue to monitor.
[2019-02-04] MEDS: morphine 4 MG/ML inj SYRINge IV PRN ×5 (03:18→21:48)
--- NOTE | 2019-02-04 03:39 | NUR ---
PRN morphine given, PT stating "hurt" repeatedly. PT wakes up agitated, thrashes around and does not follow commands. PT has been instructed on the importance of listening and following directions and to not thrash about d/t the risk of her injuring herself. Sitting in PT room at bedside monitoring closely.
[2019-02-04 03:49] LABS: BASOPHILS % (AUTO) 0.2 % (0-1); EOSINOPHILS % (AUTO) 0 % (0-6); HEMATOCRIT 32.3 % (35.0-45.0); LYMPHOCYTES # (AUTO) 0.4 X10'3 (1.1-4.8); LYMPHOCYTES % (AUTO) 3.5 % (21-51); MEAN CORPUSCULAR HEMOGLOBIN 32.1 PG (27.0-31.0); MEAN CORPUSCULAR VOLUME 94.4 FL (78-98); MEAN PLATELET VOLUME 9.6 FL (7.4-10.4); MONOCYTES # (AUTO) 0.9 X10'3 (0-0.9); MONOCYTES % (AUTO) 6.7 % (2-12); NEUTROPHILS # (AUTO) 11.3 X10'3 (1.8-7.7); NEUTROPHILS % (AUTO) 89.6 % (42-75); PLATELET COUNT 168 X10'3 (140-440); RED BLOOD COUNT 3.42 X10'6 (4.20-5.60); RED CELL DISTRIBUTION WIDTH 13.7 % (11.5-14.5); WHITE BLOOD COUNT 12.6 X10'3 (4.5-11.0)
[2019-02-04 03:57] LABS: ALANINE AMINOTRANSFERASE 19 U/L (12-78); ALBUMIN 2.9 G/DL (3.4-5.0); ALBUMIN/GLOBULIN RATIO 1.3 (1.1-1.5); ALKALINE PHOSPHATASE 76 IU/L (46-116); ANION GAP 11 (8-16); ASPARTATE AMINO TRANSFERASE 27 U/L (10-37); BLOOD UREA NITROGEN 8 MG/DL (7-18); BUN/CREATININE RATIO 9.9 (6.6-38.0); CALCIUM 7.6 MG/DL (8.5-10.1); CHLORIDE 111 MMOL/L (99-107); CREATININE 0.81 MG/DL (0.40-0.90); GLUCOSE 157 MG/DL (70-104); MAGNESIUM 2.5 MG/DL (1.5-2.4); PHOSPHORUS 2.6 MG/DL (2.3-4.5); POTASSIUM 4.2 MMOL/L (3.5-5.1); SODIUM 142 MMOL/L (135-145); TOTAL CARBON DIOXIDE 20.1 MMOL/L (24-32); TOTAL PROTEIN 5.2 G/DL (6.4-8.2); eGFR 67 ML/MIN
[2019-02-04] MEDS: potassium Cl 20mEq/100mL bag 100 ML IV PRN (04:28)
--- NOTE | 2019-02-04 06:30 | NUR ---
Patient in room ICU 2043. I have received report from candace and had the opportunity to ask questions and assume patient care.
--- NOTE | 2019-02-04 06:34 | NUR ---
Problems reprioritized. Patient report given, questions answered & plan of care reviewed with Alycia MCFADDEN.
[2019-02-04] MEDS: mupirocin 2% nasal ointment 1gm UD NS SCH ×2 (08:00→21:48)
[2019-02-04] MEDS: K and/or MAG REPLACEMENT MC SCH (08:00)
[2019-02-04] MEDS: docusate sod 100mg capsule PO SCH ×2 (08:00→20:00)
--- NOTE | 2019-02-04 08:00 | NUR ---
pt restless, doesnt know whats going on- reoriented. family in c/o back pain- chronic- norco given- all meds crushed in apple sauce- taken well. updated family and md.
[2019-02-04] MEDS: HYDROcodone/acetaminophen 10/325mg tab PO PRN (08:26)
[2019-02-04] MEDS: levoTHYROXINE 75mcg tablet PO SCH (08:26)
[2019-02-04] MEDS: ceFAZolin 1GM/D5W- ADD-VANTAGE 50 ML IV SCH ×2 (08:26→16:52)
[2019-02-04] MEDS: gabapentin 300mg capsule PO SCH ×3 (08:26→21:00)
[2019-02-04] MEDS: vancomycin/NS 1 GM ADD-VANTAGE 250 ML IV SCH ×2 (08:29→21:50)
[2019-02-04] MEDS: aspirin 325mg tablet, delayed-release (Ecotrin) PO SCH (08:35)
[2019-02-04] MEDS: atorvastatin 10mg tablet PO SCH (08:35)
[2019-02-04] MEDS: metoprolol tartrate 12.5mg (1/2 tablet) PO SCH ×2 (08:35→20:00)
[2019-02-04] MEDS: insulin Lispro (HumaLOG) vial - multi-dose SQ SCH (09:00)
--- NOTE | 2019-02-04 11:00 | NUR ---
pa and renan dcd= both with poor waveform, ci wnl. uo 20 to 40 cc/hr. nitro to 3mcg then to off.
--- NOTE | 2019-02-04 14:00 | NUR ---
pt disoriented- oriented- tearful- wanting nurse to leave. no understanding what was happening- reoriented- ms 2mg iv given and then repeated- pt more calm and clearer- to sleep.
--- NOTE | 2019-02-04 18:45 | NUR ---
Patient in room ICU 2043. I have received report from Alycia MCFADDEN and had the opportunity to ask questions and assume patient care.
[2019-02-04] MEDS: ondansetron/PF 4mg/2ml inj IV PRN (18:49)
[2019-02-04] MEDS: insulin regular, human 100 UNIT in normal saline 100ml IV soln 100 ML IV SCH ×2 (19:20)
--- NOTE | 2019-02-04 19:45 | NUR ---
i called Dr Chavez at this time to inform him that patient had spiked a fever, currently up to 38.9. he is aware. gave order for barrios-cultures including blood cultures, sputum, and urine. in addition, gave order for rectal Tylenol due to altered ability to swallow at this time.
[2019-02-04] MEDS ORDERED: acetaminophen 650mg rectal suppository RC ONE (20:00)
[2019-02-04] MEDS: enoxaparin 30mg/0.3ml syringe SUBCUT SCH (21:49)
[2019-02-05] VITALS (24 sets, daily range): BP systolic 101–130; BP diastolic 49–61
[2019-02-05] MEDS: ceFAZolin 1GM/D5W- ADD-VANTAGE 50 ML IV SCH (00:08)
[2019-02-05] MEDS: morphine 4 MG/ML inj SYRINge IV PRN ×2 (00:16→02:16)
--- NOTE | 2019-02-05 00:20 | NUR ---
i called Dr Chavez at this time to let him know that pt went into afib at 2345. rate 140-150's. he is aware. he gave order to give amiodarone bolus and start drip per protocol. orders entered. continue to monitor.
[2019-02-05 00:30] LABS: BASOPHILS # (AUTO) 0.1 X10'3 (0-0.2); BASOPHILS % (AUTO) 0.4 % (0-1); EOSINOPHILS % (AUTO) 0.3 % (0-6); HEMATOCRIT 32.8 % (35.0-45.0); HEMOGLOBIN 10.9 g/dl (12.0-16.0); LYMPHOCYTES % (AUTO) 7.8 % (21-51); MEAN CORPUSCULAR HEMOGLOBIN 31.8 PG (27.0-31.0); MEAN CORPUSCULAR HGB CONC 33.2 g/dL (33.0-36.5); MEAN CORPUSCULAR VOLUME 95.7 FL (78-98); MEAN PLATELET VOLUME 9.4 FL (7.4-10.4); MONOCYTES # (AUTO) 1.8 X10'3 (0-0.9); MONOCYTES % (AUTO) 13.3 % (2-12); NEUTROPHILS # (AUTO) 10.5 X10'3 (1.8-7.7); NEUTROPHILS % (AUTO) 78.2 % (42-75); PLATELET COUNT 123 X10'3 (140-440); RED BLOOD COUNT 3.43 X10'6 (4.20-5.60); RED CELL DISTRIBUTION WIDTH 13.4 % (11.5-14.5); WHITE BLOOD COUNT 13.4 X10'3 (4.5-11.0)
[2019-02-05] MEDS ORDERED: amiodarone 150mg/dext, iso-os 100 ML IV ONE ×2 (00:30→00:32)
[2019-02-05] MEDS ORDERED: amiodarone/D5 360MG/200ML BAG 200 ML IV ONE (00:32)
[2019-02-05] MEDS: amiodarone/D5 360MG/200ML BAG 200 ML IV SCH ×4 (00:34→17:43)
[2019-02-05 00:36] LABS: ALBUMIN 2.7 G/DL (3.4-5.0); ANION GAP 9 (8-16); BLOOD UREA NITROGEN 16 MG/DL (7-18); BUN/CREATININE RATIO 20.3 (6.6-38.0); CALCIUM 7.9 MG/DL (8.5-10.1); CHLORIDE 111 MMOL/L (99-107); CREATININE 0.79 MG/DL (0.40-0.90); GLUCOSE 109 MG/DL (70-104); MAGNESIUM 2.2 MG/DL (1.5-2.4); PHOSPHORUS 2.3 MG/DL (2.3-4.5); POTASSIUM 4.7 MMOL/L (3.5-5.1); SODIUM 142 MMOL/L (135-145); TOTAL CARBON DIOXIDE 21.6 MMOL/L (24-32); eGFR 69 ML/MIN
--- NOTE | 2019-02-05 02:06 | NUR ---
patient converted from afib back to SR at 0152. HR in the 80's. continue to monitor.
--- NOTE | 2019-02-05 06:28 | NUR ---
Problems reprioritized. Patient report given, questions answered & plan of care reviewed with Alycia MCFADDEN.
--- NOTE | 2019-02-05 06:30 | NUR ---
Patient in room ICU 2043. I have received report from daniel and had the opportunity to ask questions and assume patient care.
[2019-02-05] MEDS: K and/or MAG REPLACEMENT MC SCH (08:00)
[2019-02-05] MEDS: levoTHYROXINE 75mcg tablet PO SCH (08:57)
[2019-02-05] MEDS: mupirocin 2% nasal ointment 1gm UD NS SCH (08:57)
[2019-02-05] MEDS: enoxaparin 30mg/0.3ml syringe SUBCUT SCH ×2 (08:57→20:27)
[2019-02-05] MEDS: aspirin 325mg tablet, delayed-release (Ecotrin) PO SCH (08:58)
[2019-02-05] MEDS: gabapentin 300mg capsule PO SCH (08:58)
[2019-02-05] MEDS: pantoprazole 40mg Tablet.DR PO SCH (08:58)
[2019-02-05] MEDS: atorvastatin 10mg tablet PO SCH (08:58)
[2019-02-05] MEDS: docusate sod 100mg capsule PO SCH ×2 (08:59→20:27)
[2019-02-05] MEDS: HYDROcodone/acetaminophen 10/325mg tab PO PRN ×3 (08:59→23:15)
[2019-02-05] MEDS: metoprolol tartrate 12.5mg (1/2 tablet) PO SCH ×2 (08:59→20:26)
[2019-02-05] MEDS ORDERED: furosemide 40mg/4ml inj IV ONE (09:25)
--- NOTE | 2019-02-05 12:00 | NUR ---
pt awoken this am, calm and cooperative, but doesnt know the time, date, that she had cabg- etc- oriented now and freqoently. stood at bs- tolerated fairly well
[2019-02-05] MEDS: nitroGLYCERIN-Tridil 50MG/D5W 250 ML IV SCH (13:00)
[2019-02-05] MEDS: sodium chloride 0.45% 1,000 ML IV SCH (13:00)
--- NOTE | 2019-02-05 14:17 | NUR ---
Pt has been extubated however being documented as confused and A/O x 1, education remains not appropriate at this time. Pt currently on a no concentrated sweets diet with poor PO intake not meeting nutrient needs. Per bedside RN pt receiving Ensure and not drinking much of it however RN is encouraging PO intake and offering yogurt when pt is awake and accepting of food. Will continue to follow. Addendum: 02/05/19 at [address] Amended: Links added.
[2019-02-05 15:56] LABS: ACT @ 1.70 U 298 SEC (193-297); ACT @ 2.84 U 453 SEC (260-420); BASELINE ACT 135 SEC (101-148); PATIENT WEIGHT 55.0k KG
--- NOTE | 2019-02-05 18:27 | NUR ---
pt remains calm, norco x2 today- more comfortable, poor appetite- discussed with production clerks supervisor. stood with pt- very weak and tired. poor results from lasix. fc left inplace r/t poor output
--- NOTE | 2019-02-05 18:30 | NUR ---
Patient in room ICU 2043. I have received report from Alycia MCFADDEN and had the opportunity to ask questions and assume patient care.
[2019-02-06] VITALS (15 sets, daily range): BP systolic 105–167; BP diastolic 40–75
[2019-02-06] MEDS: amiodarone/D5 360MG/200ML BAG 200 ML IV SCH ×2 (00:42→04:55)
[2019-02-06] MEDS: insulin regular, human 100 UNIT in normal saline 100ml IV soln 100 ML IV SCH ×2 (04:40)
[2019-02-06] MEDS: HYDROcodone/acetaminophen 10/325mg tab PO PRN ×3 (04:55→20:54)
[2019-02-06 05:30] LABS: BASOPHILS % (AUTO) 0.5 % (0-1); EOSINOPHILS # (AUTO) 0.1 X10'3 (0-0.9); EOSINOPHILS % (AUTO) 1.4 % (0-6); HEMATOCRIT 33.4 % (35.0-45.0); HEMOGLOBIN 11.1 g/dl (12.0-16.0); LYMPHOCYTES % (AUTO) 9.4 % (21-51); MEAN CORPUSCULAR HEMOGLOBIN 32.1 PG (27.0-31.0); MEAN CORPUSCULAR HGB CONC 33.3 g/dL (33.0-36.5); MEAN CORPUSCULAR VOLUME 96.5 FL (78-98); MEAN PLATELET VOLUME 9.9 FL (7.4-10.4); MONOCYTES # (AUTO) 1.2 X10'3 (0-0.9); MONOCYTES % (AUTO) 11.3 % (2-12); NEUTROPHILS % (AUTO) 77.4 % (42-75); PLATELET COUNT 153 X10'3 (140-440); RED BLOOD COUNT 3.46 X10'6 (4.20-5.60); RED CELL DISTRIBUTION WIDTH 13.7 % (11.5-14.5); WHITE BLOOD COUNT 10.3 X10'3 (4.5-11.0)
[2019-02-06 06:00] LABS: ALBUMIN 2.5 G/DL (3.4-5.0); ANION GAP 6 (8-16); BLOOD UREA NITROGEN 27 MG/DL (7-18); BUN/CREATININE RATIO 24.1 (6.6-38.0); CALCIUM 8.4 MG/DL (8.5-10.1); CHLORIDE 107 MMOL/L (99-107); CREATININE 1.12 MG/DL (0.40-0.90); GLUCOSE 104 MG/DL (70-104); MAGNESIUM 2.7 MG/DL (1.5-2.4); PHOSPHORUS 3.1 MG/DL (2.3-4.5); POTASSIUM 4.4 MMOL/L (3.5-5.1); SODIUM 138 MMOL/L (135-145); TOTAL CARBON DIOXIDE 24.6 MMOL/L (24-32); eGFR 46 ML/MIN
--- NOTE | 2019-02-06 06:33 | NUR ---
Problems reprioritized. Patient report given, questions answered & plan of care reviewed with Art RN.
[2019-02-06] MEDS: aspirin 325mg tablet, delayed-release (Ecotrin) PO SCH (07:43)
[2019-02-06] MEDS: enoxaparin 30mg/0.3ml syringe SUBCUT SCH ×2 (07:43→20:52)
[2019-02-06] MEDS: levoTHYROXINE 75mcg tablet PO SCH (07:44)
[2019-02-06] MEDS: metoprolol tartrate 12.5mg (1/2 tablet) PO SCH ×2 (07:44→20:53)
[2019-02-06] MEDS: pantoprazole 40mg Tablet.DR PO SCH (07:44)
[2019-02-06] MEDS: docusate sod 100mg capsule PO SCH ×2 (07:44→20:52)
[2019-02-06] MEDS: atorvastatin 10mg tablet PO SCH (07:44)
[2019-02-06] MEDS: K and/or MAG REPLACEMENT MC SCH (08:00)
[2019-02-06] MEDS ORDERED: magnesium Cl slow-release 64mg tablet PO PRN (09:35)
[2019-02-06] MEDS ORDERED: magnesium 2GM in 50ml NS 50 ML IV PRN (09:35)
[2019-02-06] MEDS ORDERED: potassium Cl 40MEQ/NS 500ml 500 ML IV PRN ×2 (09:35)
[2019-02-06] MEDS ORDERED: potassium Cl 20 mEq SR tablet PO PRN ×2 (09:35)
[2019-02-06] MEDS ORDERED: magnesium 4gm in 100ml NS 100 ML IV PRN (09:35)
[2019-02-06] MEDS: amiodarone 200mg tablet PO SCH ×2 (10:00→20:53)
[2019-02-06] MEDS: ondansetron/PF 4mg/2ml inj IV PRN (10:10)
--- NOTE | 2019-02-06 10:12 | NUR ---
Pt had one emesis of 120mL
--- NOTE | 2019-02-06 13:52 | NUR ---
Pt transferred to [facility].
--- NOTE | 2019-02-06 15:12 | NUR ---
Pt resting, in room
--- NOTE | 2019-02-06 18:00 | NUR ---
Problems reprioritized. Patient report given, questions answered & plan of care reviewed with Art, RN.
[2019-02-06] MEDS: magnesium Cl slow-release 64mg tablet PO SCH (19:15)
[2019-02-06] MEDS: potassium Cl 20 mEq SR tablet PO SCH (20:53)
[2019-02-07] VITALS (9 sets, daily range): BP systolic 109–185; BP diastolic 60–89
[2019-02-07] MEDS: HYDROcodone/acetaminophen 10/325mg tab PO PRN ×2 (02:07→09:54)
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
--- NOTE | 2019-02-07 06:00 | NUR ---
Problems reprioritized. Patient report given, questions answered & plan of care reviewed with LESA Driver.
--- NOTE | 2019-02-07 06:00 | NUR ---
Patient in room MED 312. I have received report from Marietta MCFADDEN and had the opportunity to ask questions and assume patient care.
[2019-02-07 06:16] LABS: BASOPHILS # (AUTO) 0.1 X10'3 (0-0.2); BASOPHILS % (AUTO) 0.8 % (0-1); EOSINOPHILS # (AUTO) 0.1 X10'3 (0-0.9); EOSINOPHILS % (AUTO) 1.6 % (0-6); HEMATOCRIT 30.6 % (35.0-45.0); HEMOGLOBIN 10.6 g/dl (12.0-16.0); LYMPHOCYTES # (AUTO) 0.9 X10'3 (1.1-4.8); LYMPHOCYTES % (AUTO) 12.6 % (21-51); MEAN CORPUSCULAR HEMOGLOBIN 32.5 PG (27.0-31.0); MEAN CORPUSCULAR HGB CONC 34.7 g/dL (33.0-36.5); MEAN CORPUSCULAR VOLUME 93.5 FL (78-98); MEAN PLATELET VOLUME 9.3 FL (7.4-10.4); MONOCYTES % (AUTO) 14.8 % (2-12); NEUTROPHILS # (AUTO) 4.8 X10'3 (1.8-7.7); NEUTROPHILS % (AUTO) 70.2 % (42-75); PLATELET COUNT 172 X10'3 (140-440); RED BLOOD COUNT 3.28 X10'6 (4.20-5.60); RED CELL DISTRIBUTION WIDTH 13.5 % (11.5-14.5); WHITE BLOOD COUNT 6.8 X10'3 (4.5-11.0)
[2019-02-07 06:25] LABS: ALBUMIN 2.3 G/DL (3.4-5.0); ANION GAP 8 (8-16); BLOOD UREA NITROGEN 24 MG/DL (7-18); BUN/CREATININE RATIO 29.6 (6.6-38.0); CALCIUM 8.3 MG/DL (8.5-10.1); CHLORIDE 109 MMOL/L (99-107); CREATININE 0.81 MG/DL (0.40-0.90); GLUCOSE 101 MG/DL (70-104); POTASSIUM 4.3 MMOL/L (3.5-5.1); SODIUM 141 MMOL/L (135-145); TOTAL CARBON DIOXIDE 24.4 MMOL/L (24-32); eGFR 67 ML/MIN
[2019-02-07] MEDS: docusate sod 100mg capsule PO SCH ×2 (07:12→21:00)
[2019-02-07] MEDS: metoprolol tartrate 12.5mg (1/2 tablet) PO SCH ×2 (07:12→21:02)
[2019-02-07] MEDS: levoTHYROXINE 75mcg tablet PO SCH (07:13)
[2019-02-07] MEDS: potassium Cl 20 mEq SR tablet PO SCH ×2 (07:13→18:59)
[2019-02-07] MEDS: aspirin 325mg tablet, delayed-release (Ecotrin) PO SCH (07:13)
[2019-02-07] MEDS: pantoprazole 40mg Tablet.DR PO SCH (07:13)
[2019-02-07] MEDS: amiodarone 200mg tablet PO SCH ×2 (07:13→21:01)
[2019-02-07] MEDS: atorvastatin 10mg tablet PO SCH (07:13)
[2019-02-07] MEDS: enoxaparin 30mg/0.3ml syringe SUBCUT SCH ×2 (07:14→21:03)
[2019-02-07] MEDS: ondansetron/PF 4mg/2ml inj IV PRN (07:31)
[2019-02-07] MEDS: K and/or MAG REPLACEMENT MC SCH (08:00)
[2019-02-07] MEDS: magnesium Cl slow-release 64mg tablet PO SCH ×2 (08:00→21:00)
[2019-02-07] MEDS ORDERED: bisacodyl 10mg suppository rectal RC PRN (09:05)
--- NOTE | 2019-02-07 09:35 | NUR ---
IV mg given via quad lumen IJ instead of PO slow mg. pt unable to swallow and pill in unable to be crushed. okay'd per Neo Dawn
--- NOTE | 2019-02-07 09:54 | NUR ---
pt complaining of pain. gave PO norco. attempted to administer suppository. pt wanted to be left alone and to do it later. will continue to monitor.
--- NOTE | 2019-02-07 10:14 | NUR ---
attempted several times to feed pt, pt refusing to eat the food here.
--- NOTE | 2019-02-07 15:41 | NUR ---
Nutrition consult for poor calorie intake. 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 Last night she did eat 100% of her meat and starch/soup. Pt has increased protein needs for wound heal of chest and left leg wound. Patient had one small BM yesterday, not significant size to clear bowels. Poor appetite possibly d/t constipation and confusion. Colace is being given BID. Recommend to continue bowel care and recommend providing ensure high protein twice a day with lunch and dinner. Will continue to follow and monitor PO intake and bowel regularity. Recommend: 1. continue no concentrated sweets diet 2. send ensure high protein with lunch and dinner 3. Provide written post cardiac surgery education handout with verbal review 4. Wt per rx Addendum: 02/07/19 at [address] Amended: Links added.
--- NOTE | 2019-02-07 18:00 | NUR ---
Patient in room MED 312. I have received report from LESA Barahona and had the opportunity to ask questions and assume patient care.
[2019-02-07] MEDS: lactose-reduced food (Ensure High Protein) 237ml bottle PO SCH (18:22)
--- NOTE | 2019-02-07 18:24 | NUR ---
Problems reprioritized. Patient report given, questions answered & plan of care reviewed with Swetha MCFADDEN.
[2019-02-08 02:00] VITALS: BP 145/60
[2019-02-08 05:47] LABS: BASOPHILS % (AUTO) 0.8 % (0-1); EOSINOPHILS # (AUTO) 0.2 X10'3 (0-0.9); EOSINOPHILS % (AUTO) 3.8 % (0-6); HEMATOCRIT 30.3 % (35.0-45.0); HEMOGLOBIN 10.4 g/dl (12.0-16.0); LYMPHOCYTES # (AUTO) 0.9 X10'3 (1.1-4.8); LYMPHOCYTES % (AUTO) 15.1 % (21-51); MEAN CORPUSCULAR HEMOGLOBIN 32.7 PG (27.0-31.0); MEAN CORPUSCULAR HGB CONC 34.4 g/dL (33.0-36.5); MEAN CORPUSCULAR VOLUME 94.8 FL (78-98); MEAN PLATELET VOLUME 8.8 FL (7.4-10.4); MONOCYTES % (AUTO) 15.8 % (2-12); NEUTROPHILS # (AUTO) 3.9 X10'3 (1.8-7.7); NEUTROPHILS % (AUTO) 64.5 % (42-75); PLATELET COUNT 201 X10'3 (140-440); RED CELL DISTRIBUTION WIDTH 13.3 % (11.5-14.5); WHITE BLOOD COUNT 6.1 X10'3 (4.5-11.0)
[2019-02-08 06:00] VITALS: BP 159/65
--- NOTE | 2019-02-08 06:00 | NUR ---
Problems reprioritized. Patient report given, questions answered & plan of care reviewed with LESA Wan.
[2019-02-08 06:04] LABS: ALBUMIN 2.2 G/DL (3.4-5.0); ANION GAP 9 (8-16); BLOOD UREA NITROGEN 17 MG/DL (7-18); BUN/CREATININE RATIO 23.9 (6.6-38.0); CALCIUM 8.2 MG/DL (8.5-10.1); CHLORIDE 109 MMOL/L (99-107); CREATININE 0.71 MG/DL (0.40-0.90); GLUCOSE 78 MG/DL (70-104); SODIUM 142 MMOL/L (135-145); eGFR 78 ML/MIN
[2019-02-08] MEDS: docusate sod 100mg capsule PO SCH (07:19)
[2019-02-08] MEDS: metoprolol tartrate 12.5mg (1/2 tablet) PO SCH (07:20)
[2019-02-08] MEDS: amiodarone 200mg tablet PO SCH (07:20)
[2019-02-08] MEDS: levoTHYROXINE 75mcg tablet PO SCH (07:20)
[2019-02-08] MEDS: pantoprazole 40mg Tablet.DR PO SCH (07:20)
[2019-02-08] MEDS: magnesium Cl slow-release 64mg tablet PO SCH (07:20)
[2019-02-08] MEDS: potassium Cl 20 mEq SR tablet PO SCH (07:21)
[2019-02-08] MEDS: aspirin 325mg tablet, delayed-release (Ecotrin) PO SCH (07:21)
[2019-02-08] MEDS: enoxaparin 30mg/0.3ml syringe SUBCUT SCH (07:21)
[2019-02-08] MEDS: atorvastatin 10mg tablet PO SCH (07:22)
[2019-02-08] MEDS: K and/or MAG REPLACEMENT MC SCH (07:41)
[2019-02-08] MEDS: High Protein Shake w/Arg/Glut/Ca2+Bmb (Juven 19.3gm) pkt 240ml PO SCH ×2 (07:41→13:00)
[2019-02-08 11:00] VITALS: BP 133/58
[2019-02-08] MEDS: lactose-reduced food (Ensure High Protein) 237ml bottle PO SCH (12:30)
[2019-02-08 15:00] VITALS: BP 132/61
--- NOTE | 2019-02-08 15:30 | NUR ---
Problems reprioritized. Patient report given, questions answered & plan of care reviewed with GRETCHEN SANDOVALQUIS.
--- NOTE | 2019-02-08 15:36 | NUR ---
PATIENT'S GRANDDAUGHTER AT BEDSIDE AND AWARE PATIENT IS TRANSFERRING TO [facility] AT 1615.
--- NOTE | 2019-02-08 16:00 | NUR ---
PATIENT TRANSFERRED TO [facility] VIA DIGNA CARGO. PATIENT AT BASELINE CONFUSION BUT APPROPRIATE AND FOLLOWING COMMANDS. UNDERSTANDS TRANSFER TO [facility]. FAMILY AWARE. IV REMOVED CATHETER INTACT MINIMAL BLEEDING CLEAN GAUZE APPLIED AND SECURED WITH TAPE. ALL BELONGINGS TRANSFERRED WITH PATIENT.
== END 2019-02-08 16:13 | DRG 233 ==
LOC: ER 13:21 → MED 3N 02-02 07:31 → CMPBEDREQ 02-02 22:39 → ICU 2S 02-03 11:00 → MED 3N 02-06 12:50
PROVIDERS: ADMIT Hospitalist; ATTEND Thoracic Surgery (Cardiothoracic Vascular Surgery)
PROC: 4A023N7 Measurement of Cardiac Sampling and Pressure, Left Heart, Percutaneous Approach (ICD-10-PCS; 2019-02-02)
PROC: B2111ZZ Fluoroscopy of Multiple Coronary Arteries using Low Osmolar Contrast (ICD-10-PCS; 2019-02-02)
PROC: B2151ZZ Fluoroscopy of Left Heart using Low Osmolar Contrast (ICD-10-PCS; 2019-02-02)
PROC: B3121ZZ Fluoroscopy of Left Subclavian Artery using Low Osmolar Contrast (ICD-10-PCS; 2019-02-02)
PROC: B31N1ZZ Fluoroscopy of Other Upper Arteries using Low Osmolar Contrast (ICD-10-PCS; 2019-02-02)
PROC: B41F1ZZ Fluoroscopy of Right Lower Extremity Arteries using Low Osmolar Contrast (ICD-10-PCS; 2019-02-02)
PROC: 021109W Bypass Coronary Artery, Two Arteries from Aorta with Autologous Venous Tissue, Open Approach (ICD-10-PCS; 2019-02-03)
PROC: 06BQ0ZZ Excision of Left Saphenous Vein, Open Approach (ICD-10-PCS; 2019-02-03)
PROC: B24BZZ4 Ultrasonography of Heart with Aorta, Transesophageal (ICD-10-PCS; 2019-02-03)
PROC: 02HV33Z Insertion of Infusion Device into Superior Vena Cava, Percutaneous Approach (ICD-10-PCS; 2019-02-03)
PROC: B548ZZA Ultrasonography of Superior Vena Cava, Guidance (ICD-10-PCS; 2019-02-03)
PROC: 4A133B3 Monitoring of Arterial Pressure, Pulmonary, Percutaneous Approach (ICD-10-PCS; 2019-02-03)
PROC: 02100Z9 Bypass Coronary Artery, One Artery from Left Internal Mammary, Open Approach (ICD-10-PCS; principal; 2019-02-03 10:10)
DX: I21.4 Non-ST elevation (NSTEMI) myocardial infarction (principal); I50.31 Acute diastolic (congestive) heart failure; E11.9 Type 2 diabetes mellitus without complications; C50.919 Malignant neoplasm of unspecified site of unspecified female breast; E03.9 Hypothyroidism, unspecified; E78.5 Hyperlipidemia, unspecified; I25.10 Atherosclerotic heart disease of native coronary artery without angina pectoris; I48.91 Unspecified atrial fibrillation; K26.9 Duodenal ulcer, unspecified as acute or chronic, without hemorrhage or perforation; M54.9 Dorsalgia, unspecified; I11.0 Hypertensive heart disease with heart failure; G89.29 Other chronic pain; I25.2 Old myocardial infarction; Z96.652 Presence of left artificial knee joint; Z90.49 Acquired absence of other specified parts of digestive tract; Z79.82 Long term (current) use of aspirin; Z79.84 Long term (current) use of oral hypoglycemic drugs; Z79.890 Hormone replacement therapy; Z79.899 Other long term (current) drug therapy; Z92.3 Personal history of irradiation; Z85.3 Personal history of malignant neoplasm of breast; Z87.11 Personal history of peptic ulcer disease; Z87.891 Personal history of nicotine dependence
CPT/HCPCS: 36415; 36600; 71045; 71046; 74018; 80048; 80053; 80061; 81001; 82330; 82435; 82803; 82947; 82948; 83036; 83735; 84100; 84132; 84295; 84439; 84443; 84484; 85018; 85025; 85027; 85347; 85384; 85610; 85730; 86885; 86900; 86901; 86920; 87040; 87070; 87088; 93005; 93306; 93312; 93325; 93458; 93880; 93970; 94002; 94010; 94667; 94668; 94760; 96374; 96375; 97110; 97116; 97162; 97530; 99152; 99291; A4620; A6196; A6257; A6258; A6449; A7000; A7048; C1751; C1760; C1769; C9113; G0378; J0282; J0690; J1265; J1644; J1650; J1815; J1940; J2001; J2060; J2250; J2270; J2370; J2405; J2704; J2720; J2795; J3010; J3370; J3475; J3480; J3490; J7030; J7060; J7120; P9045; Q9967

== ENCOUNTER 2019-06-27 09:07 | Observation (INO) | payer MEDICARE, BC ==
[~2019-06-27] VITALS: Ht 152.4 cm; Wt 54.5 kg
[~2019-06-27 09:07] MED LIST changes: -ATOR20TA66 PO; +HYDR-4383 PO; -LEVO112T5 PO; +LEVO88TA2 PO; -PANT-47 PO
[2019-06-27] MEDS ORDERED: normal saline 1000ML IV soln IVB ONE (09:20)
[2019-06-27 09:42] LABS: BASOPHILS # (AUTO) 0.1 X10'3 (0-0.2); BASOPHILS % (AUTO) 0.8 % (0-1); EOSINOPHILS # (AUTO) 0.1 X10'3 (0-0.9); EOSINOPHILS % (AUTO) 0.7 % (0-6); HEMATOCRIT 38.9 % (35.0-45.0); LYMPHOCYTES # (AUTO) 1.1 X10'3 (1.1-4.8); LYMPHOCYTES % (AUTO) 12.5 % (21-51); MEAN CORPUSCULAR HEMOGLOBIN 31.8 PG (27.0-31.0); MEAN CORPUSCULAR HGB CONC 33.4 g/dL (33.0-36.5); MEAN CORPUSCULAR VOLUME 95.1 FL (78-98); MEAN PLATELET VOLUME 9.1 FL (7.4-10.4); MONOCYTES % (AUTO) 12.3 % (2-12); NEUTROPHILS # (AUTO) 6.2 X10'3 (1.8-7.7); NEUTROPHILS % (AUTO) 73.7 % (42-75); PLATELET COUNT 186 X10'3 (140-440); RED BLOOD COUNT 4.09 X10'6 (4.20-5.60); RED CELL DISTRIBUTION WIDTH 16.4 % (11.5-14.5); WHITE BLOOD COUNT 8.4 X10'3 (4.5-11.0)
[2019-06-27 09:59] LABS: ALANINE AMINOTRANSFERASE 23 U/L (12-78); ALBUMIN 3.1 G/DL (3.4-5.0); ALBUMIN/GLOBULIN RATIO 0.9 (1.1-1.5); ALKALINE PHOSPHATASE 116 IU/L (46-116); ANION GAP 7 (8-16); ASPARTATE AMINO TRANSFERASE 20 U/L (10-37); BILIRUBIN,TOTAL 1.8 MG/DL (0.1-1.0); BLOOD UREA NITROGEN 10 MG/DL (7-18); BUN/CREATININE RATIO 11.4 (6.6-38.0); CALCIUM 8.5 MG/DL (8.5-10.1); CHLORIDE 109 MMOL/L (99-107); CREATININE 0.88 MG/DL (0.40-0.90); GLUCOSE 102 MG/DL (70-104); POTASSIUM 3.9 MMOL/L (3.5-5.1); SODIUM 144 MMOL/L (135-145); TOTAL CARBON DIOXIDE 27.6 MMOL/L (24-32); TOTAL PROTEIN 6.4 G/DL (6.4-8.2); eGFR 61 ML/MIN
--- NOTE | 2019-06-27 09:59 | NUR ---
PT TO CT
[2019-06-27 10:03] LABS: TROPONIN I < 0.04 NG/ML (0.0-0.05)
[2019-06-27 10:14] LABS: CLARITY,URINE CLEAR (Clear); COLOR,URINE YELLOW (Yellow); GLUCOSE, URINE NEGATIVE (Neg); KETONES,URINE NEGATIVE (Neg); LEUKOCYTE ESTERASE ,URINE NEGATIVE (Neg); NITRITES, URINE NEGATIVE (Neg); OCCULT BLOOD,URINE NEGATIVE (Neg); PH,URINE 7.5 (4.8-8.0); PROTEIN,URINE NEGATIVE (Neg)
[2019-06-27 10:19] LABS: UA COLLECTION TYPE STRAIGHT CATH
--- NOTE | 2019-06-27 10:30 | NUR ---
New admit to O/N from ER. CP, Confusion/weakness.
[2019-06-27] MEDS ORDERED: acetaminophen 325mg tablet PO PRN ×2 (10:50)
[2019-06-27] MEDS ORDERED: magnesium Cl slow-release 64mg tablet PO PRN (10:50)
[2019-06-27] MEDS ORDERED: morphine 2 MG/ML inj. syringe IV PRN ×2 (10:50)
[2019-06-27] MEDS ORDERED: HYDROcodone/acetaminophen 10/325mg tab PO PRN (10:50)
[2019-06-27] MEDS ORDERED: potassium Cl 20 mEq SR tablet PO PRN ×2 (10:50)
[2019-06-27] MEDS ORDERED: acetaminophen 650mg rectal suppository RC PRN (10:50)
[2019-06-27] MEDS ORDERED: magnesium 4gm in 100ml NS 100 ML IV PRN (10:50)
[2019-06-27] MEDS ORDERED: magnesium 2GM in 50ml NS 50 ML IV PRN (10:50)
[2019-06-27] MEDS ORDERED: diphenhydrAMINE 50 mg/ml inj IV PRN (10:50)
[2019-06-27] MEDS ORDERED: mag hydrox/Alum hydrox/simeth 30ml oral suspension PO PRN (10:50)
[2019-06-27] MEDS ORDERED: magnesium hydroxide 30ml (MOM) UD suspension PO PRN (10:50)
[2019-06-27] MEDS ORDERED: HYDROcodone/acetaminophen 5mg/325mg tablet PO PRN (10:50)
[2019-06-27] MEDS ORDERED: diphenhydrAMINE 25mg capsule PO PRN (10:50)
[2019-06-27] MEDS: K and/or MAG REPLACEMENT MC SCH (10:50)
[2019-06-27] MEDS ORDERED: bisacodyl 10mg suppository rectal RC PRN (10:50)
[2019-06-27] MEDS ORDERED: potassium CL 10mEq/100ml bag 100 ML IV PRN ×2 (10:50)
[2019-06-27] MEDS ORDERED: ondansetron/PF 4mg/2ml inj IV PRN (10:50)
[2019-06-27] MEDS ORDERED: PANT-47 PO (10:55)
[2019-06-27] MEDS ORDERED: ATOR10TA87 PO (10:55)
[2019-06-27] MEDS ORDERED: AMIO200T61 PO (10:55)
[2019-06-27] MEDS ORDERED: HYDR-3965 PO (10:55)
[2019-06-27 11:00] VITALS: BP 116/34
[2019-06-27] MEDS: normal saline 1000ml 1,000 ML IV SCH ×2 (11:26→20:48)
[2019-06-27 13:00] VITALS: BP 116/34
[2019-06-27 18:00] VITALS: BP 160/85
[2019-06-27] MEDS ORDERED: atorvastatin 10mg tablet PO SCH (21:00)
[2019-06-27] MEDS ORDERED: temazepam 15mg capsule PO PRN (21:00)
[2019-06-27] MEDS: heparin, porcine 5000 units/ml vial SQ SCH (21:01)
[2019-06-27 22:00] VITALS: BP 163/67
[2019-06-28 06:15] LABS: ALANINE AMINOTRANSFERASE 23 U/L (12-78); ALBUMIN 2.8 G/DL (3.4-5.0); ALBUMIN/GLOBULIN RATIO 0.8 (1.1-1.5); ALKALINE PHOSPHATASE 108 IU/L (46-116); ANION GAP 10 (8-16); ASPARTATE AMINO TRANSFERASE 21 U/L (10-37); BILIRUBIN,TOTAL 1.9 MG/DL (0.1-1.0); BLOOD UREA NITROGEN 8 MG/DL (7-18); BUN/CREATININE RATIO 10.3 (6.6-38.0); CALCIUM 8.2 MG/DL (8.5-10.1); CHLORIDE 111 MMOL/L (99-107); CREATININE 0.78 MG/DL (0.40-0.90); GLUCOSE 79 MG/DL (70-104); MAGNESIUM 1.8 MG/DL (1.5-2.4); PHOSPHORUS 2.7 MG/DL (2.3-4.5); POTASSIUM 3.5 MMOL/L (3.5-5.1); SODIUM 145 MMOL/L (135-145); TOTAL PROTEIN 6.1 G/DL (6.4-8.2); TROPONIN I < 0.04 NG/ML (0.0-0.05); eGFR 70 ML/MIN
[2019-06-28] MEDS: normal saline 1000ml 1,000 ML IV SCH (06:48)
[2019-06-28 07:09] LABS: BASOPHILS # (AUTO) 0.1 X10'3 (0-0.2); BASOPHILS % (AUTO) 0.9 % (0-1); EOSINOPHILS # (AUTO) 0.1 X10'3 (0-0.9); HEMATOCRIT 37.3 % (35.0-45.0); HEMOGLOBIN 12.4 g/dl (12.0-16.0); LYMPHOCYTES # (AUTO) 1.2 X10'3 (1.1-4.8); LYMPHOCYTES % (AUTO) 20.2 % (21-51); MEAN CORPUSCULAR HEMOGLOBIN 31.9 PG (27.0-31.0); MEAN CORPUSCULAR HGB CONC 33.1 g/dL (33.0-36.5); MEAN CORPUSCULAR VOLUME 96.3 FL (78-98); MEAN PLATELET VOLUME 9.9 FL (7.4-10.4); MONOCYTES # (AUTO) 0.7 X10'3 (0-0.9); MONOCYTES % (AUTO) 11.3 % (2-12); NEUTROPHILS % (AUTO) 66.6 % (42-75); PLATELET COUNT 158 X10'3 (140-440); RED BLOOD COUNT 3.88 X10'6 (4.20-5.60); RED CELL DISTRIBUTION WIDTH 16.5 % (11.5-14.5); WHITE BLOOD COUNT 6.1 X10'3 (4.5-11.0)
[2019-06-28] MEDS ORDERED: levoTHYROXINE 25mcg tablet PO SCH (07:30)
[2019-06-28] MEDS ORDERED: levoTHYROXINE 88mcg tablet PO SCH (07:30)
--- NOTE | 2019-06-28 07:49 | NUR ---
paged Dr Rivera: [id number] Irene Tiwari: pt pulled out IV x2 on NOC. refusing IV start this AM. She is a tele monitor. Will make another attempt when pt is more receptive. Keena [phone]
[2019-06-28] MEDS ORDERED: amiodarone 200mg tablet PO SCH (08:00)
[2019-06-28] MEDS ORDERED: pantoprazole 40mg Tablet.DR PO SCH (08:00)
[2019-06-28] MEDS: K and/or MAG REPLACEMENT MC SCH (08:00)
[2019-06-28] MEDS: heparin, porcine 5000 units/ml vial SQ SCH (09:05)
[2019-06-28] MEDS ORDERED: MAGN400O6 PO (09:38)
--- NOTE | 2019-06-28 11:00 | NUR ---
DISCHARGE: pt cleared to DC home w/spouse. ECHO cancelled. pt ambulates w/walker, SBA. pt spouse w/pt. All necessary DC documents signed, copies released to pt. pt escorted JUS in WC by [facility] staff, spouse. Pt transferred safely into personal vehicle home. Pt thanked [facility] for her care.
[2019-06-28] MEDS ORDERED: LEVO50TA8 PO (19:57)
== END 2019-06-28 11:11 | disposition home health service (06) ==
LOC: ER 09:07 → ORTHO 4S 12:39
PROVIDERS: ADMIT Family Medicine; ATTEND Family Medicine
DX: G93.41 Metabolic encephalopathy (principal); I10 Essential (primary) hypertension; E03.9 Hypothyroidism, unspecified; E11.9 Type 2 diabetes mellitus without complications; K21.9 Gastro-esophageal reflux disease without esophagitis; K92.2 Gastrointestinal hemorrhage, unspecified; E78.5 Hyperlipidemia, unspecified; Z95.1 Presence of aortocoronary bypass graft; R41.0 Disorientation, unspecified; R07.9 Chest pain, unspecified; Z79.890 Hormone replacement therapy; Z79.899 Other long term (current) drug therapy; Z90.49 Acquired absence of other specified parts of digestive tract; I48.91 Unspecified atrial fibrillation; R55 Syncope and collapse
CPT/HCPCS: 36415; 70450; 70544; 70551; 71045; 80053; 81003; 83735; 84100; 84439; 84443; 84484; 85025; 85610; 87081; 92508; 92616; 93005; 96360; 96361; 96372; 97110; 97116; 97162; 99284; G0378; J1644; J7030

== ENCOUNTER 2019-07-16 07:57 | Observation (INO) | payer MEDICARE, BC ==
[~2019-07-16] VITALS: Ht 152.4 cm; Wt 57.0 kg
[~2019-07-16 07:57] MED LIST changes: +AMIO200T61 PO; +ATOR10TA87 PO; +HYDR-3965 PO; -HYDR-4383 PO; +LEVO50TA8 PO; -LEVO88TA2 PO; -LISI-600 PO; +MAGN400O6 PO; +PANT-47 PO
[2019-07-16 08:33] LABS: BASOPHILS % (AUTO) 0.8 % (0-1); EOSINOPHILS # (AUTO) 0.2 X10'3 (0-0.9); EOSINOPHILS % (AUTO) 3.2 % (0-6); HEMATOCRIT 39.2 % (35.0-45.0); HEMOGLOBIN 13.1 g/dl (12.0-16.0); LYMPHOCYTES # (AUTO) 1.3 X10'3 (1.1-4.8); LYMPHOCYTES % (AUTO) 27.4 % (21-51); MEAN CORPUSCULAR HEMOGLOBIN 32.2 PG (27.0-31.0); MEAN CORPUSCULAR HGB CONC 33.4 g/dL (33.0-36.5); MEAN CORPUSCULAR VOLUME 96.3 FL (78-98); MEAN PLATELET VOLUME 8.7 FL (7.4-10.4); MONOCYTES # (AUTO) 0.4 X10'3 (0-0.9); MONOCYTES % (AUTO) 9.5 % (2-12); NEUTROPHILS # (AUTO) 2.8 X10'3 (1.8-7.7); NEUTROPHILS % (AUTO) 59.1 % (42-75); PLATELET COUNT 213 X10'3 (140-440); RED BLOOD COUNT 4.07 X10'6 (4.20-5.60); RED CELL DISTRIBUTION WIDTH 15.9 % (11.5-14.5); WHITE BLOOD COUNT 4.7 X10'3 (4.5-11.0)
[2019-07-16 08:55] LABS: ASPARTATE AMINO TRANSFERASE 24 U/L (10-37)
[2019-07-16 08:58] LABS: ALANINE AMINOTRANSFERASE 27 U/L (12-78); ALBUMIN 3.7 G/DL (3.4-5.0); ALBUMIN/GLOBULIN RATIO 1.1 (1.1-1.5); ALKALINE PHOSPHATASE 125 IU/L (46-116); ANION GAP 10 (8-16); BILIRUBIN,TOTAL 1.4 MG/DL (0.1-1.0); BLOOD UREA NITROGEN 8 MG/DL (7-18); BUN/CREATININE RATIO 8.1 (6.6-38.0); CALCIUM 8.7 MG/DL (8.5-10.1); CHLORIDE 109 MMOL/L (99-107); CREATININE 0.99 MG/DL (0.40-0.90); GLUCOSE 94 MG/DL (70-104); MAGNESIUM 1.8 MG/DL (1.5-2.4); POTASSIUM 3.8 MMOL/L (3.5-5.1); SODIUM 146 MMOL/L (135-145); TOTAL CARBON DIOXIDE 26.9 MMOL/L (24-32); TOTAL PROTEIN 7.1 G/DL (6.4-8.2); eGFR 53 ML/MIN
[2019-07-16] MEDS ORDERED: SYN0.088T PO (09:29)
[2019-07-16] MEDS ORDERED: ondansetron/PF 4mg/2ml inj IV PRN (10:20)
[2019-07-16] MEDS ORDERED: regadenoson 0.4mg/5ml syringe IV ONE (10:20)
[2019-07-16] MEDS ORDERED: metoprolol tartrate 1mg/ml inj IV PRN (10:20)
[2019-07-16] MEDS ORDERED: magnesium hydroxide 30ml (MOM) UD suspension PO PRN (10:20)
[2019-07-16] MEDS ORDERED: mag hydrox/Alum hydrox/simeth 30ml oral suspension PO PRN (10:20)
[2019-07-16] MEDS ORDERED: morphine 2 MG/ML inj. syringe IV PRN ×2 (10:20)
[2019-07-16] MEDS ORDERED: potassium CL 10mEq/100ml bag 100 ML IV PRN ×2 (10:20)
[2019-07-16] MEDS ORDERED: nitroGLYCERIN 0.4mg SUBLingual tab SL PRN ×2 (10:20)
[2019-07-16] MEDS ORDERED: aminophylline 250mg/10ml inj. IV PRN (10:20)
[2019-07-16] MEDS ORDERED: bisacodyl 10mg suppository rectal RC PRN (10:20)
[2019-07-16] MEDS ORDERED: potassium Cl 20 mEq SR tablet PO PRN ×2 (10:20)
[2019-07-16] MEDS ORDERED: magnesium 2GM in 50ml NS 50 ML IV PRN (10:20)
[2019-07-16] MEDS ORDERED: magnesium 4gm in 100ml NS 100 ML IV PRN (10:20)
[2019-07-16] MEDS ORDERED: magnesium Cl slow-release 64mg tablet PO PRN (10:20)
[2019-07-16] MEDS ORDERED: acetaminophen 325mg tablet PO PRN ×2 (10:20)
[2019-07-16] MEDS: normal saline 1000ml 1,000 ML IV SCH (10:50)
--- NOTE | 2019-07-16 11:51 | NUR ---
Pt transferred to room 3012B in stable condition with belongings.
[2019-07-16 12:26] VITALS: BP 158/79
[2019-07-16 12:52] LABS: PHOSPHORUS 3.7 MG/DL (2.3-4.5)
[2019-07-16 15:00] VITALS: BP 118/69
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
[2019-07-16] MEDS ORDERED: LORazepam 2 mg/ml vial IM ONE ×2 (15:25→16:00)
[2019-07-16] MEDS ORDERED: LORazepam 2 mg/ml vial ONE (15:29)
[2019-07-16] MEDS ORDERED: LORazepam 2 mg/ml vial IV PRN (15:40)
[2019-07-16] MEDS ORDERED: glucagon, human recombinant 1mg kit SUBCUT PRN (16:15)
[2019-07-16] MEDS ORDERED: insulin Lispro (HumaLOG) vial - multi-dose SQ SCH (16:15)
[2019-07-16] MEDS ORDERED: dextrose ORAL solution 15 GM/59 ML bottle PO PRN ×2 (16:15)
[2019-07-16] MEDS ORDERED: dextrose 50%-water 50ml dispensing syringe IV PRN ×2 (16:15)
[2019-07-16] MEDS ORDERED: MESSAGE TO PHARMACY PO ONE (16:15)
[2019-07-16 16:45] LABS: CLARITY,URINE CLEAR (Clear); COLOR,URINE YELLOW (Yellow); GLUCOSE, URINE NEGATIVE (Neg); KETONES,URINE NEGATIVE (Neg); LEUKOCYTE ESTERASE ,URINE NEGATIVE (Neg); NITRITES, URINE NEGATIVE (Neg); OCCULT BLOOD,URINE NEGATIVE (Neg); PH,URINE 7.5 (4.8-8.0); PROTEIN,URINE NEGATIVE (Neg); UROBILINOGEN,URINE 0.2 E.U/dL (0.2-1.0)
--- NOTE | 2019-07-16 16:49 | NUR ---
Patient's at bedside, patient is much calmer now, released restraints and allowed patient to go to bathroom without incident. UA collected as states her behavior is very bizarre for her.
[2019-07-16 16:56] LABS: UA COLLECTION TYPE OTHER
[2019-07-16] MEDS ORDERED: HYDROcodone/acetaminophen 5mg/325mg tablet PO PRN (17:05)
--- NOTE | 2019-07-16 17:15 | NUR ---
Cannot locate denial of rights form to fill out. Addendum: 07/16/19 at 1715 by Alicia Verdugo RN Amended: Links added.
--- NOTE | 2019-07-16 18:10 | NUR ---
Patient in room PCU 3012. I have received report from LESA Vargas and had the opportunity to ask questions and assume patient care.
--- NOTE | 2019-07-16 18:13 | NUR ---
Problems reprioritized. Patient report given, questions answered & plan of care reviewed with LESA Sebastian. Mark currently resting in bed, bed locked and low, family at bedside, stable at shift change
[2019-07-16 19:00] VITALS: BP 107/44
[2019-07-16] MEDS ORDERED: atorvastatin 10mg tablet PO SCH (21:00)
[2019-07-16] MEDS ORDERED: temazepam 15mg capsule PO PRN (21:00)
[2019-07-16] MEDS ORDERED: insulin glargine (Lantus) pen - multi-dose SQ SCH (21:00)
[2019-07-16 23:00] VITALS: BP 155/62
[2019-07-17] MEDS: normal saline 1000ml 1,000 ML IV SCH (01:10)
[2019-07-17 02:21] LABS: ALBUMIN 3.3 G/DL (3.4-5.0); ANION GAP 10 (8-16); BLOOD UREA NITROGEN 10 MG/DL (7-18); BUN/CREATININE RATIO 12.3 (6.6-38.0); CALCIUM 8.2 MG/DL (8.5-10.1); CHLORIDE 110 MMOL/L (99-107); CHOL/HDL RATIO 2.1 (0.00-4.99); CHOLESTEROL 154 MG/DL (0-200); CREATININE 0.81 MG/DL (0.40-0.90); GLUCOSE 75 MG/DL (70-104); HDL CHOLESTEROL 72 MG/DL (35-60); LDL CHOLESTEROL 78 MG/DL (50-100); MAGNESIUM 1.7 MG/DL (1.5-2.4); PHOSPHORUS 3.4 MG/DL (2.3-4.5); SODIUM 145 MMOL/L (135-145); TOTAL CARBON DIOXIDE 25.5 MMOL/L (24-32); TRIGLYCERIDES 62 MG/DL (20-135); eGFR 67 ML/MIN
[2019-07-17 02:29] LABS: POTASSIUM 3.7 MMOL/L (3.5-5.1)
[2019-07-17 03:00] VITALS: BP 168/59
[2019-07-17] MEDS ORDERED: amLODIPine 2.5mg tablet PO ONE (03:40)
[2019-07-17] MEDS ORDERED: enalaprilat dihydrate 2.5mg/2ml vial IV ONE (05:45)
[2019-07-17 05:59] LABS: HEMATOCRIT 39.6 % (35.0-45.0); HEMOGLOBIN 13.1 g/dl (12.0-16.0); MEAN CORPUSCULAR HEMOGLOBIN 31.6 PG (27.0-31.0); MEAN CORPUSCULAR HGB CONC 33.1 g/dL (33.0-36.5); MEAN CORPUSCULAR VOLUME 95.5 FL (78-98); MEAN PLATELET VOLUME 8.9 FL (7.4-10.4); PLATELET COUNT 220 X10'3 (140-440); RED BLOOD COUNT 4.14 X10'6 (4.20-5.60); RED CELL DISTRIBUTION WIDTH 15.9 % (11.5-14.5); WHITE BLOOD COUNT 5.5 X10'3 (4.5-11.0)
[2019-07-17 06:00] VITALS: BP 103/72
--- NOTE | 2019-07-17 06:30 | NUR ---
Patient in room PCU 3012. I have received report from LESA TRAN and had the opportunity to ask questions and assume patient care.
--- NOTE | 2019-07-17 06:53 | NUR ---
Problems reprioritized. Patient report given, questions answered & plan of care reviewed with LESA Saha. Also increased agitation and combativeness observed from patient by nurse. PRN anxiety medication to be given by day shift nurse.
[2019-07-17 07:00] VITALS: BP 187/85
--- NOTE | 2019-07-17 07:00 | NUR ---
CONFUSION, RESISTANT TO CARE, DR. HERNANDEZ NOTIFIED. IV ATIVAN WAS ADD. SITTER ORDER, SITTER AT BEDSIDE. Addendum: 07/17/19 at 1010 by Luke Love RN CALLED AND LEFT MESSAGE TO PLEASE CALL BACK.
--- NOTE | 2019-07-17 07:56 | NUR ---
PAGER ID: [phone] MESSAGE: NEED # FOR DR. HERNANDEZ, R/T [id number]/[id number]. NEED TO TALK TO MD. CRANE [id number], TY
[2019-07-17] MEDS ORDERED: K and/or MAG REPLACEMENT MC SCH (08:00)
[2019-07-17] MEDS ORDERED: amiodarone 200mg tablet PO SCH (08:00)
[2019-07-17] MEDS ORDERED: enoxaparin 40mg/0.4ml syringe SQ SCH (08:00)
[2019-07-17] MEDS ORDERED: levoTHYROXINE 88mcg tablet PO SCH (08:00)
[2019-07-17] MEDS ORDERED: pantoprazole 40mg Tablet.DR PO SCH (08:00)
[2019-07-17] MEDS ORDERED: aspirin 325mg tablet PO SCH (08:30)
[2019-07-17 11:00] VITALS: BP 168/67
== END 2019-07-17 14:40 | disposition home health service (06) ==
LOC: ER 07:58 → ED HOLD 10:34 → PCU 3S 12:20
PROVIDERS: ADMIT Family Medicine; ATTEND Family Medicine
DX: I25.119 Atherosclerotic heart disease of native coronary artery with unspecified angina pectoris (principal); I10 Essential (primary) hypertension; I24.9 Acute ischemic heart disease, unspecified; R41.0 Disorientation, unspecified; E03.9 Hypothyroidism, unspecified; E11.9 Type 2 diabetes mellitus without complications; E78.5 Hyperlipidemia, unspecified; E87.1 Hypo-osmolality and hyponatremia; N17.9 Acute kidney failure, unspecified; Z85.3 Personal history of malignant neoplasm of breast; Z96.652 Presence of left artificial knee joint; Z87.11 Personal history of peptic ulcer disease; Z95.1 Presence of aortocoronary bypass graft; Z90.49 Acquired absence of other specified parts of digestive tract; Z79.899 Other long term (current) drug therapy
CPT/HCPCS: 36415; 71046; 80048; 80053; 80061; 81003; 82948; 83036; 83735; 83880; 84100; 84484; 85025; 85027; 87081; 93005; 93306; 96361; 96372; 96374; 96375; 99284; G0378; J2060; J7030; J1650; J1815

== ENCOUNTER 2019-08-22 17:30 | Inpatient (IN) | payer MEDICARE, BC ==
[~2019-08-22] VITALS: Ht 152.4 cm; Wt 56.0 kg
[~2019-08-22 17:30] MED LIST changes: -LEVO50TA8 PO; -MAGN400O6 PO; +SYN0.088T PO
--- NOTE | 2019-08-22 17:53 | NUR ---
patient taken to xray
[2019-08-22] MEDS ORDERED: TETanus/Pertussis (Acell)/Diphther VAC/PF (Tdap-Adult) 0.5ml syringe IMVAC ONE (17:55)
[2019-08-22 18:59] LABS: BASOPHILS # (AUTO) 0.1 X10'3 (0-0.2); BASOPHILS % (AUTO) 0.6 % (0-1); EOSINOPHILS # (AUTO) 0.1 X10'3 (0-0.9); EOSINOPHILS % (AUTO) 1.3 % (0-6); HEMATOCRIT 37.8 % (35.0-45.0); HEMOGLOBIN 12.9 g/dl (12.0-16.0); LYMPHOCYTES # (AUTO) 0.9 X10'3 (1.1-4.8); LYMPHOCYTES % (AUTO) 9.9 % (21-51); MEAN CORPUSCULAR HGB CONC 34.2 g/dL (33.0-36.5); MEAN CORPUSCULAR VOLUME 96.6 FL (78-98); MEAN PLATELET VOLUME 9.1 FL (7.4-10.4); MONOCYTES # (AUTO) 0.6 X10'3 (0-0.9); MONOCYTES % (AUTO) 6.7 % (2-12); NEUTROPHILS # (AUTO) 7.2 X10'3 (1.8-7.7); NEUTROPHILS % (AUTO) 81.5 % (42-75); PLATELET COUNT 184 X10'3 (140-440); RED BLOOD COUNT 3.92 X10'6 (4.20-5.60); WHITE BLOOD COUNT 8.8 X10'3 (4.5-11.0)
[2019-08-22 19:10] LABS: PARTIAL THROMBOPLASTIN TIME 25 SECONDS (22-32)
[2019-08-22 19:13] LABS: ALANINE AMINOTRANSFERASE 27 U/L (12-78); ALBUMIN 3.4 G/DL (3.4-5.0); ALKALINE PHOSPHATASE 105 IU/L (46-116); ANION GAP 12 (8-16); ASPARTATE AMINO TRANSFERASE 25 U/L (10-37); BILIRUBIN,TOTAL 0.8 MG/DL (0.1-1.0); BLOOD UREA NITROGEN 13 MG/DL (7-18); BUN/CREATININE RATIO 13.1 (6.6-38.0); CALCIUM 8.9 MG/DL (8.5-10.1); CHLORIDE 107 MMOL/L (99-107); CREATININE 0.99 MG/DL (0.40-0.90); GLUCOSE 88 MG/DL (70-104); POTASSIUM 3.6 MMOL/L (3.5-5.1); SODIUM 145 MMOL/L (135-145); TOTAL CARBON DIOXIDE 25.9 MMOL/L (24-32); TOTAL PROTEIN 6.9 G/DL (6.4-8.2); eGFR 53 ML/MIN
[2019-08-22 20:11] LABS: CLARITY,URINE CLEAR (Clear); COLOR,URINE YELLOW (Yellow); GLUCOSE, URINE NEGATIVE (Neg); KETONES,URINE TRACE mg/dl (Neg); LEUKOCYTE ESTERASE ,URINE NEGATIVE (Neg); NITRITES, URINE NEGATIVE (Neg); OCCULT BLOOD,URINE NEGATIVE (Neg); PROTEIN,URINE NEGATIVE (Neg)
[2019-08-22 20:12] LABS: UA COLLECTION TYPE FOLEY CATH
[2019-08-22] MEDS ORDERED: mag hydrox/Alum hydrox/simeth 30ml oral suspension PO PRN (20:40)
[2019-08-22] MEDS ORDERED: acetaminophen 325mg tablet PO PRN (20:40)
[2019-08-22] MEDS ORDERED: magnesium hydroxide 30ml (MOM) UD suspension PO PRN (20:40)
[2019-08-22] MEDS ORDERED: bisacodyl 10mg suppository rectal RC PRN (20:40)
[2019-08-22] MEDS ORDERED: morphine 2 MG/ML inj. syringe IV PRN (20:40)
[2019-08-22] MEDS ORDERED: ondansetron/PF 4mg/2ml inj IV PRN (20:40)
[2019-08-22] MEDS ORDERED: HYDROcodone/acetaminophen 5mg/325mg tablet PO PRN (20:40)
[2019-08-22 21:40] VITALS: BP 174/69
[2019-08-22] MEDS: normal saline 1000ml 1,000 ML IV SCH (22:40)
[2019-08-22] MEDS: atorvastatin 10mg tablet PO SCH (22:45)
[2019-08-23 06:00] VITALS: BP 167/67
[2019-08-23 06:03] LABS: BASOPHILS % (AUTO) 0.4 % (0-1); EOSINOPHILS % (AUTO) 0.2 % (0-6); HEMATOCRIT 39.9 % (35.0-45.0); HEMOGLOBIN 13.6 g/dl (12.0-16.0); LYMPHOCYTES # (AUTO) 1.2 X10'3 (1.1-4.8); LYMPHOCYTES % (AUTO) 12.5 % (21-51); MEAN CORPUSCULAR HEMOGLOBIN 33.1 PG (27.0-31.0); MEAN CORPUSCULAR HGB CONC 34.2 g/dL (33.0-36.5); MEAN CORPUSCULAR VOLUME 96.6 FL (78-98); MEAN PLATELET VOLUME 9.2 FL (7.4-10.4); MONOCYTES % (AUTO) 10.3 % (2-12); NEUTROPHILS # (AUTO) 7.5 X10'3 (1.8-7.7); NEUTROPHILS % (AUTO) 76.6 % (42-75); PLATELET COUNT 181 X10'3 (140-440); RED BLOOD COUNT 4.13 X10'6 (4.20-5.60); WHITE BLOOD COUNT 9.9 X10'3 (4.5-11.0)
[2019-08-23 06:34] LABS: ALANINE AMINOTRANSFERASE 24 U/L (12-78); ALBUMIN 3.5 G/DL (3.4-5.0); ALBUMIN/GLOBULIN RATIO 0.9 (1.1-1.5); ALKALINE PHOSPHATASE 115 IU/L (46-116); ANION GAP 12 (8-16); ASPARTATE AMINO TRANSFERASE 28 U/L (10-37); BILIRUBIN,TOTAL 1.7 MG/DL (0.1-1.0); BLOOD UREA NITROGEN 10 MG/DL (7-18); BUN/CREATININE RATIO 10.2 (6.6-38.0); CALCIUM 8.8 MG/DL (8.5-10.1); CHLORIDE 105 MMOL/L (99-107); CREATININE 0.98 MG/DL (0.40-0.90); GLUCOSE 108 MG/DL (70-104); POTASSIUM 3.7 MMOL/L (3.5-5.1); SODIUM 142 MMOL/L (135-145); TOTAL CARBON DIOXIDE 25.2 MMOL/L (24-32); TOTAL PROTEIN 7.3 G/DL (6.4-8.2); eGFR 54 ML/MIN
[2019-08-23 07:40] VITALS: BP 158/63
[2019-08-23] MEDS: pantoprazole 40mg Tablet.DR PO SCH (07:57)
[2019-08-23] MEDS: docusate sod 100mg capsule PO SCH ×2 (07:57→20:00)
[2019-08-23] MEDS: amiodarone 200mg tablet PO SCH (07:57)
[2019-08-23] MEDS: levoTHYROXINE 88mcg tablet PO SCH (07:57)
[2019-08-23 10:00] VITALS: BP_SYST 146; BP_SYST 153; BP_DIAS 67; BP_DIAS 84
--- NOTE | 2019-08-23 11:30 | NUR ---
Student documentation:I have reviewed and agree with all interventions, assessments performed and documented by Arslan Leon.
--- NOTE | 2019-08-23 11:33 | NUR ---
Student Medication Administration: For this medication-pass time frame [id number], all medications were reviewed, administered and documented per hospital policy by Arslan Leon.
--- NOTE | 2019-08-23 11:48 | NUR ---
assuming care of patient
[2019-08-23 18:00] VITALS: BP 172/69
--- NOTE | 2019-08-23 18:46 | NUR ---
Report to Leonor MCFADDEN
--- NOTE | 2019-08-23 19:30 | NUR ---
Patient in room ORTHO 4009. I have received report from LESA Zavaleta and had the opportunity to ask questions and assume patient care. Addendum: 08/23/19 at 1944 by Emilia Mckenna RN Amended: Links added.
[2019-08-23] MEDS: atorvastatin 10mg tablet PO SCH (19:52)
[2019-08-23] MEDS: morphine 2 MG/ML inj. syringe IV PRN (19:53)
--- NOTE | 2019-08-23 20:29 | NUR ---
linen change done, pt has dried uilup6m stool on west area, west care given, washed under skin folds. Right breast reddened, pannus reddened, bilat groin sl pink, sacrum sl red blanchable.will apply foam dressing. pt has multiple scabs and bruises bilat arms and right hand. no open sores.Pt confused to place and time, wants to get up and put pants on. Addendum: 08/23/19 at 2030 by Emilia Mckenna RN Amended: Links added.
--- NOTE | 2019-08-23 21:29 | NUR ---
Pt is freq moving in bed, states needs to get dressed and go. pt does not know she is in hospital attempted to reorient, but pt confused. Addendum: 08/23/19 at 2130 by Emilia Mckenna RN Amended: Links added.
[2019-08-23 22:30] VITALS: BP 124/86
[2019-08-24] MEDS: normal saline 1000ml 1,000 ML IV SCH (04:24)
[2019-08-24] MEDS: morphine 2 MG/ML inj. syringe IV PRN ×2 (04:46→12:52)
--- NOTE | 2019-08-24 04:51 | NUR ---
pt woke up, moaning, repositioned with pillows. morphine 2mg iv given for pain. attempted to started new iv on right arm, but pt refuses, swings arm away. Iv site to left arm intact and patent. pt has hx of mastectomy. jeramy sips of water. pt stating some relief. Addendum: 08/24/19 at 0453 by Emilia Mckenna RN Amended: Links added.
[2019-08-24 06:00] VITALS: BP 124/66
[2019-08-24 06:07] LABS: BASOPHILS # (AUTO) 0.1 X10'3 (0-0.2); BASOPHILS % (AUTO) 0.4 % (0-1); EOSINOPHILS # (AUTO) 0.1 X10'3 (0-0.9); EOSINOPHILS % (AUTO) 0.4 % (0-6); HEMATOCRIT 39.6 % (35.0-45.0); HEMOGLOBIN 13.6 g/dl (12.0-16.0); LYMPHOCYTES # (AUTO) 1.9 X10'3 (1.1-4.8); LYMPHOCYTES % (AUTO) 12.7 % (21-51); MEAN CORPUSCULAR HEMOGLOBIN 32.5 PG (27.0-31.0); MEAN CORPUSCULAR HGB CONC 34.3 g/dL (33.0-36.5); MEAN PLATELET VOLUME 9.5 FL (7.4-10.4); MONOCYTES # (AUTO) 1.4 X10'3 (0-0.9); MONOCYTES % (AUTO) 9.6 % (2-12); NEUTROPHILS # (AUTO) 11.6 X10'3 (1.8-7.7); NEUTROPHILS % (AUTO) 76.9 % (42-75); PLATELET COUNT 186 X10'3 (140-440); RED BLOOD COUNT 4.18 X10'6 (4.20-5.60); RED CELL DISTRIBUTION WIDTH 13.8 % (11.5-14.5); WHITE BLOOD COUNT 15.1 X10'3 (4.5-11.0)
[2019-08-24 06:23] LABS: ALANINE AMINOTRANSFERASE 22 U/L (12-78); ALBUMIN 3.1 G/DL (3.4-5.0); ALBUMIN/GLOBULIN RATIO 0.8 (1.1-1.5); ALKALINE PHOSPHATASE 108 IU/L (46-116); ANION GAP 12 (8-16); ASPARTATE AMINO TRANSFERASE 25 U/L (10-37); BILIRUBIN,TOTAL 2.1 MG/DL (0.1-1.0); BLOOD UREA NITROGEN 13 MG/DL (7-18); BUN/CREATININE RATIO 14.3 (6.6-38.0); CALCIUM 8.7 MG/DL (8.5-10.1); CHLORIDE 105 MMOL/L (99-107); CREATININE 0.91 MG/DL (0.40-0.90); GLUCOSE 97 MG/DL (70-104); POTASSIUM 3.5 MMOL/L (3.5-5.1); SODIUM 139 MMOL/L (135-145); TOTAL CARBON DIOXIDE 21.8 MMOL/L (24-32); TOTAL PROTEIN 6.9 G/DL (6.4-8.2); eGFR 58 ML/MIN
--- NOTE | 2019-08-24 06:31 | NUR ---
Problems reprioritized. Patient report given, questions answered & plan of care reviewed with RN. Addendum: 08/24/19 at 0631 by Emilia Mckenna RN Amended: Links added.
--- NOTE | 2019-08-24 06:42 | NUR ---
Patient in room ORTHO 4009. I have received report from Tracy MCFADDEN and had the opportunity to ask questions and assume patient care.
--- NOTE | 2019-08-24 06:54 | NUR ---
Patient in room ORTHO 4009. I have received report from Tracy MCFADDEN and had the opportunity to ask questions and assume patient care.
[2019-08-24] MEDS: docusate sod 100mg capsule PO SCH ×2 (07:48→20:00)
[2019-08-24] MEDS: levoTHYROXINE 88mcg tablet PO SCH (08:31)
[2019-08-24] MEDS: amiodarone 200mg tablet PO SCH (08:31)
[2019-08-24] MEDS: pantoprazole 40mg Tablet.DR PO SCH (08:32)
[2019-08-24] MEDS: enoxaparin 40mg/0.4ml syringe SUBCUT SCH (08:33)
[2019-08-24 10:00] VITALS: BP 116/60
--- NOTE | 2019-08-24 11:45 | NUR ---
Student documentation: I have reviewed all interventions, assessments performed and documented by Leora Nina. Student Medication Administration: For this medication-pass time frame, all medication were reviewed, dispensed, administered and documented per hospital policy by Leora OCHOA [facility].
--- NOTE | 2019-08-24 11:57 | NUR ---
Patient report given, to Israel MCFADDEN.
[2019-08-24 13:00] VITALS: BP 119/69
--- NOTE | 2019-08-24 13:00 | NUR ---
Patient very anxious and respirations were in the 30's and 40's patient given morphine for pain and respirations, ekg and vitals taken and all were within normal limits, will continue to monitor
[2019-08-24 13:11] VITALS: BP 116/62
--- NOTE | 2019-08-24 14:43 | NUR ---
patient reassessed and is more relaxed and less anxious
[2019-08-24] MEDS: HYDROcodone/acetaminophen 10/325mg tab PO PRN (15:59)
--- NOTE | 2019-08-24 17:23 | NUR ---
paged hospitalist [phone] MESSAGE: RE: [phone] wai Bermudez can fluids be restarted patient is only voiding small amounts and is very dark in color, sandrine continue to monitor
[2019-08-24] MEDS ORDERED: normal saline 1000ml 1,000 ML IV SCH (17:55)
[2019-08-24 18:00] VITALS: BP_SYST 151; BP_DIAS 57; BP_DIAS 80
--- NOTE | 2019-08-24 18:12 | NUR ---
Problems reprioritized. Patient report given, questions answered & plan of care reviewed with Josie MCFADDEN.
[2019-08-24] MEDS: atorvastatin 10mg tablet PO SCH (20:22)
[2019-08-24 22:00] VITALS: BP 185/76
[2019-08-25 06:00] VITALS: BP 156/68
[2019-08-25 06:34] LABS: BASOPHILS # (AUTO) 0.1 X10'3 (0-0.2); BASOPHILS % (AUTO) 0.4 % (0-1); EOSINOPHILS # (AUTO) 0.1 X10'3 (0-0.9); HEMATOCRIT 39.6 % (35.0-45.0); HEMOGLOBIN 13.4 g/dl (12.0-16.0); LYMPHOCYTES % (AUTO) 8.3 % (21-51); MEAN CORPUSCULAR HEMOGLOBIN 32.7 PG (27.0-31.0); MEAN CORPUSCULAR HGB CONC 33.8 g/dL (33.0-36.5); MEAN CORPUSCULAR VOLUME 96.5 FL (78-98); MEAN PLATELET VOLUME 9.5 FL (7.4-10.4); MONOCYTES # (AUTO) 1.2 X10'3 (0-0.9); MONOCYTES % (AUTO) 9.5 % (2-12); NEUTROPHILS % (AUTO) 80.8 % (42-75); PLATELET COUNT 152 X10'3 (140-440); RED BLOOD COUNT 4.11 X10'6 (4.20-5.60); RED CELL DISTRIBUTION WIDTH 13.9 % (11.5-14.5); WHITE BLOOD COUNT 12.4 X10'3 (4.5-11.0)
[2019-08-25 06:40] LABS: ALANINE AMINOTRANSFERASE 21 U/L (12-78); ALBUMIN 2.8 G/DL (3.4-5.0); ALBUMIN/GLOBULIN RATIO 0.8 (1.1-1.5); ALKALINE PHOSPHATASE 99 IU/L (46-116); ANION GAP 10 (8-16); ASPARTATE AMINO TRANSFERASE 27 U/L (10-37); BILIRUBIN,TOTAL 1.5 MG/DL (0.1-1.0); BLOOD UREA NITROGEN 11 MG/DL (7-18); BUN/CREATININE RATIO 12.6 (6.6-38.0); CHLORIDE 105 MMOL/L (99-107); CREATININE 0.87 MG/DL (0.40-0.90); GLUCOSE 89 MG/DL (70-104); POTASSIUM 3.3 MMOL/L (3.5-5.1); SODIUM 139 MMOL/L (135-145); TOTAL CARBON DIOXIDE 24.1 MMOL/L (24-32); TOTAL PROTEIN 6.5 G/DL (6.4-8.2); eGFR 62 ML/MIN
--- NOTE | 2019-08-25 06:53 | NUR ---
Patient in room ORTHO 4009. I have received report from Marisa MCFADDEN and had the opportunity to ask questions and assume patient care.
[2019-08-25] MEDS: pantoprazole 40mg Tablet.DR PO SCH (08:37)
[2019-08-25] MEDS: docusate sod 100mg capsule PO SCH (08:37)
[2019-08-25] MEDS: enoxaparin 40mg/0.4ml syringe SUBCUT SCH (08:37)
[2019-08-25] MEDS: levoTHYROXINE 88mcg tablet PO SCH (08:37)
[2019-08-25] MEDS: amiodarone 200mg tablet PO SCH (08:37)
--- NOTE | 2019-08-25 08:43 | NUR ---
[place] [phone] Re: Irene Bermudez. Didier 3.3. Can we start K replacement?
[2019-08-25] MEDS ORDERED: magnesium 2GM in 50ml NS 50 ML IV PRN (08:45)
[2019-08-25] MEDS ORDERED: potassium CL 10mEq/100ml bag 100 ML IV PRN (08:45)
[2019-08-25] MEDS ORDERED: magnesium 4gm in 100ml NS 100 ML IV PRN (08:45)
[2019-08-25] MEDS ORDERED: magnesium Cl slow-release 64mg tablet PO PRN (08:45)
[2019-08-25] MEDS ORDERED: potassium Cl 20 mEq SR tablet PO PRN (08:45)
[2019-08-25] MEDS: potassium Cl 20 mEq SR tablet PO PRN ×2 (09:12→13:15)
[2019-08-25] MEDS: HYDROcodone/acetaminophen 10/325mg tab PO PRN ×2 (09:15→13:04)
[2019-08-25] MEDS ORDERED: SYN0.088T PO (10:54)
--- NOTE | 2019-08-25 13:00 | NUR ---
Problems reprioritized. Patient report given, questions answered & plan of care reviewed with Jorge MCFADDEN.
--- NOTE | 2019-08-25 13:30 | NUR ---
Safe DC with [employer]. all personal items with patient.
[2019-08-26] MEDS ORDERED: levoTHYROXINE 100mcg tablet PO SCH (08:00)
== END 2019-08-25 13:30 | DRG 536 ==
LOC: ER 17:30 → ED HOLD 21:15 → ORTHO 4S 21:30 → CMPBEDREQ 21:31
PROVIDERS: ADMIT Internal Medicine; ATTEND Internal Medicine
PROC: 3E0234Z Introduction of Serum, Toxoid and Vaccine into Muscle, Percutaneous Approach (ICD-10-PCS; principal; 2019-08-22)
DX: S32.411A Displaced fracture of anterior wall of right acetabulum, initial encounter for closed fracture (principal); E03.9 Hypothyroidism, unspecified; E11.9 Type 2 diabetes mellitus without complications; E78.5 Hyperlipidemia, unspecified; F02.80 Dementia in other diseases classified elsewhere, unspecified severity, without behavioral disturbance, psychotic disturbance, mood disturbance, and anxiety; G30.9 Alzheimer's disease, unspecified; I10 Essential (primary) hypertension; I25.10 Atherosclerotic heart disease of native coronary artery without angina pectoris; W01.0XXA Fall on same level from slipping, tripping and stumbling without subsequent striking against object, initial encounter; I48.0 Paroxysmal atrial fibrillation; S50.311A Abrasion of right elbow, initial encounter; Z85.3 Personal history of malignant neoplasm of breast; Z90.49 Acquired absence of other specified parts of digestive tract; Z95.1 Presence of aortocoronary bypass graft; Z23 Encounter for immunization; Y99.8 Other external cause status; Z90.10 Acquired absence of unspecified breast and nipple; Z79.899 Other long term (current) drug therapy; Z79.84 Long term (current) use of oral hypoglycemic drugs; Y93.89 Activity, other specified; Y92.89 Other specified places as the place of occurrence of the external cause
CPT/HCPCS: 36415; 71045; 72192; 73080; 73502; 73700; 80053; 81003; 84443; 85025; 85610; 85730; 86885; 86900; 86901; 87081; 90471; 93005; 97110; 97112; 97116; 97162; 97530; 99285; G0378; J1650; J2270; J7030

== ENCOUNTER 2020-04-19 07:41 | Inpatient (IN) | payer MEDICARE, BC ==
[~2020-04-19] VITALS: Ht 160 cm; Wt 60.0 kg
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
--- NOTE | 2020-04-19 08:00 | NUR ---
DR ROWLAND AT BEDSIDE DISCUSSED MIRANDA PT HX AND C/O AND INFORMED TAHT PT IS CONFUSED HAD MECH FALL NOT SURE ABOUT THE TIME PER PT SHE FELL LAST NGT AND SAID SHE FELL AT 0600 AND CALLED HIS SON AND THEY CALLED EMS,PT WAS LOSING BALANCE AT HOME FROM 2 DAYS WITH N/V PER TOLD BY EMS.PT HAS NUMEROUS BRUISES TO B/L ARM AND BRUISE TO LFT LAT CHEEK.PERIORBITAL SWELLING NOTED.
[2020-04-19] MEDS ORDERED: ondansetron/PF 4mg/2ml inj IV ONE (08:20)
[2020-04-19] MEDS ORDERED: pantoprazole 40 MG vial IV ONE (08:20)
[2020-04-19] MEDS ORDERED: normal saline 1000ML IV soln IVB ONE (08:20)
[2020-04-19 08:54] LABS: BASOPHILS # (AUTO) 0.1 X10'3 (0-0.2); BASOPHILS % (AUTO) 1.2 % (0-1); EOSINOPHILS # (AUTO) 0.1 X10'3 (0-0.9); EOSINOPHILS % (AUTO) 3.1 % (0-6); HEMATOCRIT 32.3 % (35.0-45.0); LYMPHOCYTES # (AUTO) 1.3 X10'3 (1.1-4.8); LYMPHOCYTES % (AUTO) 29.6 % (21-51); MEAN CORPUSCULAR HEMOGLOBIN 33.8 PG (27.0-31.0); MEAN CORPUSCULAR HGB CONC 33.9 g/dL (33.0-36.5); MEAN CORPUSCULAR VOLUME 99.7 FL (78-98); MONOCYTES # (AUTO) 0.3 X10'3 (0-0.9); MONOCYTES % (AUTO) 7.7 % (2-12); NEUTROPHILS # (AUTO) 2.5 X10'3 (1.8-7.7); NEUTROPHILS % (AUTO) 58.4 % (42-75); PLATELET COUNT 225 X10'3 (140-440); RED BLOOD COUNT 3.24 X10'6 (4.20-5.60); RED CELL DISTRIBUTION WIDTH 13.9 % (11.5-14.5); WHITE BLOOD COUNT 4.2 X10'3 (4.5-11.0)
[2020-04-19 09:07] LABS: ALANINE AMINOTRANSFERASE 24 U/L (12-78); ALBUMIN 2.9 G/DL (3.4-5.0); ALBUMIN/GLOBULIN RATIO 0.7 (1.1-1.5); ALKALINE PHOSPHATASE 129 IU/L (46-116); ANION GAP 11 (8-16); ASPARTATE AMINO TRANSFERASE 48 U/L (10-37); BILIRUBIN,TOTAL 0.7 MG/DL (0.1-1.0); BLOOD UREA NITROGEN 13 MG/DL (7-18); BUN/CREATININE RATIO 7.3 (6.6-38.0); CALCIUM 8.2 MG/DL (8.5-10.1); CHLORIDE 106 MMOL/L (99-107); CREATININE 1.78 MG/DL (0.40-0.90); GLUCOSE 77 MG/DL (70-104); LIPASE 201 U/L (73-393); POTASSIUM 3.1 MMOL/L (3.5-5.1); SODIUM 143 MMOL/L (135-145); TOTAL CARBON DIOXIDE 26.1 MMOL/L (24-32); TOTAL PROTEIN 7.1 G/DL (6.4-8.2); eGFR 27 ML/MIN
[2020-04-19 10:16] LABS: CLARITY,URINE CLOUDY (Clear); COLOR,URINE STRAW (Yellow); GLUCOSE, URINE NEGATIVE (Neg); KETONES,URINE NEGATIVE (Neg); LEUKOCYTE ESTERASE ,URINE TRACE (Neg); NITRITES, URINE POSITIVE (Neg); OCCULT BLOOD,URINE NEGATIVE (Neg); PROTEIN,URINE NEGATIVE (Neg)
[2020-04-19 10:18] LABS: UA COLLECTION TYPE CLN CATCH MIDSTREAM
[2020-04-19 10:28] LABS: BACTERIA,URINE 4+ /HPF (Neg); SQUAMOUS EPITHELIAL CELL,UR FEW /LPF (FEW)
[2020-04-19 10:29] LABS: RBC,URINE 0-2 /HPF (0-2)
--- NOTE | 2020-04-19 10:31 | NUR ---
PT DRESSING REMOVED PT HAS B/L SKIN TEAR REDNESS NAD MINIMAL BLEEDING NOTED.PT IS MORE ALERT NOW AT THIS TIME ASKING ABOUT HER ,ASKING WHETHER HE CAME IN TO SEE HER,PT ALSO C/O PAIN TO HER SKIN TEAR SITE ALSO C/O COLD BLANKET PROVIDED REPOSITIONED IN BED WITH HELP OF ROBERTO CARLOS MCFADDEN.PT VITALS STABLE ,BP 172/85.
[2020-04-19] MEDS ORDERED: CefTRIAXone/D5W-Rocephin 1gm 50 ML IV ONE (10:40)
[2020-04-19] MEDS ORDERED: METO25TA6 PO (12:04)
--- NOTE | 2020-04-19 12:04 | NUR ---
Attempted to reach pt's , Annie, and son, Alireza, but neither answered telephone. Spoke with alternate emergency contact, Mary, regarding admission to hospital and requested medication list but she did not have information. Will attempt to reach family again.
[2020-04-19] MEDS ORDERED: ondansetron/PF 4mg/2ml inj IV PRN (13:05)
[2020-04-19] MEDS ORDERED: acetaminophen 325mg tablet PO PRN ×2 (13:05)
[2020-04-19] MEDS ORDERED: bisacodyl 10mg suppository rectal RC PRN (13:05)
[2020-04-19] MEDS ORDERED: diphenhydrAMINE 25mg capsule PO PRN (13:05)
[2020-04-19] MEDS ORDERED: mag hydrox/Alum hydrox/simeth 30ml oral suspension PO PRN (13:05)
[2020-04-19] MEDS ORDERED: potassium CL 10mEq/100ml bag 100 ML IV PRN ×2 (13:05)
[2020-04-19] MEDS ORDERED: potassium Cl 20 mEq SR tablet PO PRN (13:05)
[2020-04-19] MEDS ORDERED: HYDROcodone/acetaminophen 10/325mg tab PO PRN (13:05)
[2020-04-19] MEDS ORDERED: HYDROcodone/acetaminophen 5mg/325mg tablet PO PRN (13:05)
[2020-04-19] MEDS ORDERED: magnesium Cl slow-release 64mg tablet PO PRN (13:05)
[2020-04-19] MEDS ORDERED: morphine 2 MG/ML inj. syringe IV PRN (13:05)
[2020-04-19] MEDS ORDERED: acetaminophen 650mg rectal suppository RC PRN (13:05)
[2020-04-19] MEDS ORDERED: magnesium 2GM in 50ml NS 50 ML IV PRN (13:05)
[2020-04-19] MEDS ORDERED: magnesium hydroxide 30ml (MOM) UD suspension PO PRN (13:05)
[2020-04-19] MEDS ORDERED: magnesium 4gm in 100ml NS 100 ML IV PRN (13:05)
[2020-04-19 13:31] LABS: HEMOGLOBIN A1C 4.6 % (4.5-6.2)
--- NOTE | 2020-04-19 14:58 | NUR ---
Patient in room ED 3. I have received report from LESA Gomez and had the opportunity to ask questions, awaiting patient's arrival.
--- NOTE | 2020-04-19 15:20 | NUR ---
Patient arrived from ED, transferred with 3 person slide to bed. Pt awake, but confused (dementia). Placed call light within reach, placed tabs on patient. Bed locked and lowered, 2 side rails up. 2 RN skin check complete, MRSA swab collected, sent to lab. First set of vitals done: BP 155/85 HR67 R 12 Temp 98.6 02 97 RA, pt stated no pain. Addendum: 04/19/20 at 1719 by Alicia Aldridge RN Pictures of bilateral upper extremity skin tears taken and placed in chart.
[2020-04-19] MEDS: normal saline 1000ml 1,000 ML IV SCH (16:00)
[2020-04-19 18:00] VITALS: BP 141/91
--- NOTE | 2020-04-19 18:11 | NUR ---
Orientee documentation: I have reviewed and agree with all interventions, assessments performed and documented by LESA Isbell.
--- NOTE | 2020-04-19 18:11 | NUR ---
Problems reprioritized. Patient report given, questions answered & plan of care reviewed with Kisha MCFADDEN. Patient in bed resting. Informed nurse about need to complete DART, unable to complete d/t patient state of confusion and with dementia. 2 RN skin check, wound pictures, and MRSA swab complete.
--- NOTE | 2020-04-19 18:12 | NUR ---
Problems reprioritized. Patient report given, questions answered & plan of care reviewed with LESA Beard. Patient resting comfortably, informed nurse was not able to DART pt due to pt being confused, recommened she call the phone number in the chart to ask about health history. Informed nurse the 2 RN skin check was complete, MRSA was collected and sent to lab, and pt's potassium is low and needs replaced.
--- NOTE | 2020-04-19 18:12 | NUR ---
[place] Medication Administration: For this medication-pass time frame, all medication were reviewed, dispensed, administered and documented per hospital policy by LESA Isbell.
[2020-04-19 20:00] VITALS: BP 140/80
[2020-04-19] MEDS: atorvastatin 10mg tablet PO SCH (20:08)
[2020-04-19] MEDS: heparin, porcine 5000 units/ml vial SQ SCH (20:08)
[2020-04-19] MEDS: potassium Cl 20 mEq SR tablet PO PRN (20:16)
[2020-04-19] MEDS: K and/or MAG REPLACEMENT MC SCH (20:16)
[2020-04-19 22:00] VITALS: BP 142/80
[2020-04-20] MEDS: potassium Cl 20 mEq SR tablet PO PRN ×2 (00:35→05:15)
[2020-04-20] MEDS: morphine 2 MG/ML inj. syringe IV PRN ×2 (00:46→19:38)
[2020-04-20 02:00] VITALS: BP 106/77
[2020-04-20] MEDS: normal saline 1000ml 1,000 ML IV SCH ×2 (02:55→22:08)
[2020-04-20 05:39] LABS: BASOPHILS # (AUTO) 0.1 X10'3 (0-0.2); BASOPHILS % (AUTO) 0.8 % (0-1); EOSINOPHILS # (AUTO) 0.1 X10'3 (0-0.9); EOSINOPHILS % (AUTO) 0.9 % (0-6); HEMATOCRIT 36.6 % (35.0-45.0); HEMOGLOBIN 12.5 g/dl (12.0-16.0); LYMPHOCYTES # (AUTO) 1.3 X10'3 (1.1-4.8); LYMPHOCYTES % (AUTO) 18.7 % (21-51); MEAN CORPUSCULAR HEMOGLOBIN 33.7 PG (27.0-31.0); MEAN CORPUSCULAR HGB CONC 34.1 g/dL (33.0-36.5); MEAN CORPUSCULAR VOLUME 98.7 FL (78-98); MEAN PLATELET VOLUME 6.9 FL (7.4-10.4); MONOCYTES # (AUTO) 0.5 X10'3 (0-0.9); MONOCYTES % (AUTO) 6.8 % (2-12); NEUTROPHILS # (AUTO) 4.9 X10'3 (1.8-7.7); NEUTROPHILS % (AUTO) 72.8 % (42-75); PLATELET COUNT 279 X10'3 (140-440); RED CELL DISTRIBUTION WIDTH 14.2 % (11.5-14.5); WHITE BLOOD COUNT 6.7 X10'3 (4.5-11.0)
[2020-04-20 06:00] VITALS: BP 160/82
[2020-04-20 06:06] LABS: ALANINE AMINOTRANSFERASE 26 U/L (12-78); ALBUMIN 3.3 G/DL (3.4-5.0); ALBUMIN/GLOBULIN RATIO 0.7 (1.1-1.5); ALKALINE PHOSPHATASE 145 IU/L (46-116); ANION GAP 10 (8-16); ASPARTATE AMINO TRANSFERASE 53 U/L (10-37); BILIRUBIN,TOTAL 1.1 MG/DL (0.1-1.0); BLOOD UREA NITROGEN 10 MG/DL (7-18); BUN/CREATININE RATIO 6.8 (6.6-38.0); CALCIUM 9.1 MG/DL (8.5-10.1); CHLORIDE 105 MMOL/L (99-107); CHOL/HDL RATIO 2.7 (0.00-4.99); CHOLESTEROL 223 MG/DL (0-200); CREATININE 1.46 MG/DL (0.40-0.90); GLUCOSE 97 MG/DL (70-104); HDL CHOLESTEROL 82 MG/DL (35-60); LDL CHOLESTEROL 113 MG/DL (50-100); PHOSPHORUS 2.5 MG/DL (2.3-4.5); POTASSIUM 3.7 MMOL/L (3.5-5.1); SODIUM 142 MMOL/L (135-145); TOTAL CARBON DIOXIDE 26.6 MMOL/L (24-32); TOTAL PROTEIN 7.9 G/DL (6.4-8.2); TRIGLYCERIDES 127 MG/DL (20-135); eGFR 34 ML/MIN
--- NOTE | 2020-04-20 06:21 | NUR ---
Problems reprioritized. Patient report given, questions answered & plan of care reviewed with LESA Peñaloza.
--- NOTE | 2020-04-20 06:52 | NUR ---
Patient in room PCU 3017. I have received report from Su MCFADDEN and had the opportunity to ask questions and assume patient care.
[2020-04-20] MEDS: pantoprazole 40mg Tablet.DR PO SCH (07:56)
[2020-04-20] MEDS: amiodarone 200mg tablet PO SCH (07:56)
[2020-04-20] MEDS: heparin, porcine 5000 units/ml vial SQ SCH ×2 (07:57→19:37)
[2020-04-20] MEDS ORDERED: metoprolol tartrate 25mg tablet PO SCH (08:00)
[2020-04-20] MEDS: K and/or MAG REPLACEMENT MC SCH ×2 (08:00→20:00)
[2020-04-20] MEDS: levoTHYROXINE 75mcg tablet PO SCH (10:29)
[2020-04-20] MEDS: metoprolol succinate 25mg (24-HOUR) SR. Tablet PO SCH (10:29)
[2020-04-20] MEDS: CefTRIAXone/D5W-Rocephin 1gm 50 ML IV SCH (10:30)
[2020-04-20 11:00] VITALS: BP 120/70
[2020-04-20 15:00] VITALS: BP 150/59
--- NOTE | 2020-04-20 18:04 | NUR ---
Problems reprioritized. Patient report given, questions answered & plan of care reviewed with Su MCFADDEN.
[2020-04-20] MEDS: lactobacillus rhamnosus 10,000 MMU CELLS/CAPSULE PO SCH (19:37)
[2020-04-20 20:00] VITALS: BP 144/84
--- NOTE | 2020-04-20 20:38 | NUR ---
PAGER ID: [phone] MESSAGE: This is Kisha from [facility]. [id number] 89 F Dx : Fall, ALOC, & UTI. She's very confused and is trying to get up. Can we have an order for Ativan and a sitter? Thanks!
[2020-04-20] MEDS ORDERED: diphenhydrAMINE 50 mg/ml inj IV PRN (20:40)
[2020-04-20] MEDS: LORazepam 2 mg/ml vial IV PRN (21:45)
[2020-04-20] MEDS: atorvastatin 10mg tablet PO SCH (21:45)
[2020-04-21] VITALS (9 sets, daily range): BP systolic 120–162; BP diastolic 55–118
--- NOTE | 2020-04-21 06:00 | NUR ---
Patient in room PCU 3017. I have received report from Kisha MCFADDEN and had the opportunity to ask questions and assume patient care.
[2020-04-21 06:18] LABS: BASOPHILS # (AUTO) 0.1 X10'3 (0-0.2); BASOPHILS % (AUTO) 1.3 % (0-1); EOSINOPHILS # (AUTO) 0.1 X10'3 (0-0.9); HEMATOCRIT 36.3 % (35.0-45.0); HEMOGLOBIN 12.4 g/dl (12.0-16.0); LYMPHOCYTES # (AUTO) 1.2 X10'3 (1.1-4.8); MEAN CORPUSCULAR HEMOGLOBIN 33.9 PG (27.0-31.0); MEAN CORPUSCULAR HGB CONC 34.1 g/dL (33.0-36.5); MEAN CORPUSCULAR VOLUME 99.5 FL (78-98); MEAN PLATELET VOLUME 7.1 FL (7.4-10.4); MONOCYTES # (AUTO) 0.5 X10'3 (0-0.9); MONOCYTES % (AUTO) 7.1 % (2-12); NEUTROPHILS # (AUTO) 4.6 X10'3 (1.8-7.7); NEUTROPHILS % (AUTO) 71.6 % (42-75); PLATELET COUNT 280 X10'3 (140-440); RED BLOOD COUNT 3.65 X10'6 (4.20-5.60); RED CELL DISTRIBUTION WIDTH 14.4 % (11.5-14.5); WHITE BLOOD COUNT 6.5 X10'3 (4.5-11.0)
--- NOTE | 2020-04-21 06:25 | NUR ---
Problems reprioritized. Patient report given, questions answered & plan of care reviewed with LESA Fontenot.
[2020-04-21 06:33] LABS: ALANINE AMINOTRANSFERASE 27 U/L (12-78); ALBUMIN 3.2 G/DL (3.4-5.0); ALBUMIN/GLOBULIN RATIO 0.7 (1.1-1.5); ALKALINE PHOSPHATASE 132 IU/L (46-116); ANION GAP 11 (8-16); ASPARTATE AMINO TRANSFERASE 73 U/L (10-37); BILIRUBIN,TOTAL 0.8 MG/DL (0.1-1.0); CALCIUM 8.5 MG/DL (8.5-10.1); CHLORIDE 105 MMOL/L (99-107); CREATININE 1.74 MG/DL (0.40-0.90); GLUCOSE 107 MG/DL (70-104); MAGNESIUM 1.8 MG/DL (1.5-2.4); PHOSPHORUS 2.5 MG/DL (2.3-4.5); POTASSIUM 3.5 MMOL/L (3.5-5.1); SODIUM 142 MMOL/L (135-145); TOTAL CARBON DIOXIDE 25.7 MMOL/L (24-32); TOTAL PROTEIN 7.5 G/DL (6.4-8.2); eGFR 28 ML/MIN
[2020-04-21 07:02] LABS: BLOOD UREA NITROGEN 10 MG/DL (7-18); BUN/CREATININE RATIO 5.7 (6.6-38.0)
[2020-04-21] MEDS: normal saline 1000ml 1,000 ML IV SCH ×2 (07:20→18:21)
[2020-04-21] MEDS: CefTRIAXone/D5W-Rocephin 1gm 50 ML IV SCH (07:20)
[2020-04-21] MEDS: K and/or MAG REPLACEMENT MC SCH ×2 (08:00→19:51)
[2020-04-21] MEDS: lactobacillus rhamnosus 10,000 MMU CELLS/CAPSULE PO SCH ×2 (08:00→19:40)
[2020-04-21] MEDS: metoprolol succinate 25mg (24-HOUR) SR. Tablet PO SCH (08:00)
[2020-04-21] MEDS: amiodarone 200mg tablet PO SCH (08:00)
[2020-04-21] MEDS: pantoprazole 40mg Tablet.DR PO SCH (08:00)
[2020-04-21] MEDS: levoTHYROXINE 75mcg tablet PO SCH (09:16)
[2020-04-21] MEDS: heparin, porcine 5000 units/ml vial SQ SCH ×2 (09:31→19:40)
--- NOTE | 2020-04-21 18:25 | NUR ---
Problems reprioritized. Patient report given, questions answered & plan of care reviewed with Prudence RN.
--- NOTE | 2020-04-21 18:37 | NUR ---
Patient in room PCU 3017. I have received report from Isadora MCFADDEN and had the opportunity to ask questions and assume patient care.
[2020-04-21] MEDS: atorvastatin 10mg tablet PO SCH (21:15)
[2020-04-21] MEDS: LORazepam 2 mg/ml vial IV PRN (21:16)
--- NOTE | 2020-04-21 22:06 | NUR ---
PATIENT REFUSED Addendum: 04/21/20 at 2206 by Reina Us RN Amended: Links added.
[2020-04-22] VITALS (7 sets, daily range): BP systolic 99–187; BP diastolic 45–102
[2020-04-22] MEDS: normal saline 1000ml 1,000 ML IV SCH ×2 (00:37→17:06)
[2020-04-22] MEDS: LORazepam 2 mg/ml vial IV PRN (03:55)
[2020-04-22 06:10] LABS: ALANINE AMINOTRANSFERASE 23 U/L (12-78); ALBUMIN 2.4 G/DL (3.4-5.0); ALBUMIN/GLOBULIN RATIO 0.7 (1.1-1.5); ALKALINE PHOSPHATASE 103 IU/L (46-116); ANION GAP 9 (8-16); ASPARTATE AMINO TRANSFERASE 61 U/L (10-37); BILIRUBIN,TOTAL 0.5 MG/DL (0.1-1.0); BLOOD UREA NITROGEN 12 MG/DL (7-18); BUN/CREATININE RATIO 7.8 (6.6-38.0); CALCIUM 7.8 MG/DL (8.5-10.1); CHLORIDE 109 MMOL/L (99-107); CREATININE 1.53 MG/DL (0.40-0.90); GLUCOSE 67 MG/DL (70-104); MAGNESIUM 1.8 MG/DL (1.5-2.4); PHOSPHORUS 2.8 MG/DL (2.3-4.5); POTASSIUM 3.5 MMOL/L (3.5-5.1); SODIUM 141 MMOL/L (135-145); TOTAL CARBON DIOXIDE 23.4 MMOL/L (24-32); TOTAL PROTEIN 5.9 G/DL (6.4-8.2); eGFR 32 ML/MIN
--- NOTE | 2020-04-22 06:11 | NUR ---
Patient in room PCU 3017. I have received report from LESA Huang and had the opportunity to ask questions and assume patient care.
--- NOTE | 2020-04-22 06:31 | NUR ---
Problems reprioritized. Patient report given, questions answered & plan of care reviewed with Alesha MCFADDEN.
[2020-04-22 06:42] LABS: BASOPHILS # (AUTO) 0.1 X10'3 (0-0.2); BASOPHILS % (AUTO) 1.5 % (0-1); EOSINOPHILS # (AUTO) 0.2 X10'3 (0-0.9); EOSINOPHILS % (AUTO) 3.3 % (0-6); HEMATOCRIT 31.7 % (35.0-45.0); HEMOGLOBIN 10.6 g/dl (12.0-16.0); LYMPHOCYTES # (AUTO) 1.6 X10'3 (1.1-4.8); LYMPHOCYTES % (AUTO) 29.7 % (21-51); MEAN CORPUSCULAR HEMOGLOBIN 33.4 PG (27.0-31.0); MEAN CORPUSCULAR HGB CONC 33.4 g/dL (33.0-36.5); MEAN CORPUSCULAR VOLUME 100.1 FL (78-98); MEAN PLATELET VOLUME 6.9 FL (7.4-10.4); MONOCYTES # (AUTO) 0.3 X10'3 (0-0.9); MONOCYTES % (AUTO) 6.6 % (2-12); NEUTROPHILS # (AUTO) 3.1 X10'3 (1.8-7.7); NEUTROPHILS % (AUTO) 58.9 % (42-75); PLATELET COUNT 231 X10'3 (140-440); RED BLOOD COUNT 3.17 X10'6 (4.20-5.60); RED CELL DISTRIBUTION WIDTH 14.6 % (11.5-14.5); WHITE BLOOD COUNT 5.3 X10'3 (4.5-11.0)
[2020-04-22] MEDS: levoTHYROXINE 75mcg tablet PO SCH (07:23)
[2020-04-22] MEDS: lactobacillus rhamnosus 10,000 MMU CELLS/CAPSULE PO SCH ×2 (07:23→20:45)
[2020-04-22] MEDS: CefTRIAXone/D5W-Rocephin 1gm 50 ML IV SCH (07:23)
[2020-04-22] MEDS: pantoprazole 40mg Tablet.DR PO SCH (07:23)
[2020-04-22] MEDS: metoprolol succinate 25mg (24-HOUR) SR. Tablet PO SCH (07:24)
[2020-04-22] MEDS: heparin, porcine 5000 units/ml vial SQ SCH ×2 (07:24→20:46)
[2020-04-22] MEDS: amiodarone 200mg tablet PO SCH (07:24)
[2020-04-22] MEDS: K and/or MAG REPLACEMENT MC SCH ×2 (07:40→19:54)
--- NOTE | 2020-04-22 18:30 | NUR ---
Patient in room PCU 3017. I have received report from LESA dEuardo and had the opportunity to ask questions and assume patient care.
--- NOTE | 2020-04-22 18:34 | NUR ---
Problems reprioritized. Patient report given, questions answered & plan of care reviewed with LESA Arguello.
[2020-04-22] MEDS: atorvastatin 10mg tablet PO SCH (20:45)
--- NOTE | 2020-04-22 22:30 | NUR ---
Dr. Hardwick was paged and notified of patients positive orthostatic vital signs at 2200.
[2020-04-23] MEDS: LORazepam 2 mg/ml vial IV PRN ×3 (00:01→23:52)
[2020-04-23 01:59] VITALS: BP 161/75
[2020-04-23] MEDS: normal saline 1000ml 1,000 ML IV SCH ×2 (05:05→22:06)
[2020-04-23 06:00] VITALS: BP 167/80
[2020-04-23 06:29] LABS: BASOPHILS # (AUTO) 0.1 X10'3 (0-0.2); BASOPHILS % (AUTO) 1.4 % (0-1); EOSINOPHILS # (AUTO) 0.2 X10'3 (0-0.9); EOSINOPHILS % (AUTO) 2.9 % (0-6); HEMATOCRIT 31.5 % (35.0-45.0); HEMOGLOBIN 10.5 g/dl (12.0-16.0); LYMPHOCYTES # (AUTO) 1.4 X10'3 (1.1-4.8); LYMPHOCYTES % (AUTO) 26.9 % (21-51); MEAN CORPUSCULAR HEMOGLOBIN 33.4 PG (27.0-31.0); MEAN CORPUSCULAR HGB CONC 33.4 g/dL (33.0-36.5); MEAN CORPUSCULAR VOLUME 100.1 FL (78-98); MEAN PLATELET VOLUME 6.9 FL (7.4-10.4); MONOCYTES # (AUTO) 0.4 X10'3 (0-0.9); MONOCYTES % (AUTO) 7.8 % (2-12); NEUTROPHILS # (AUTO) 3.2 X10'3 (1.8-7.7); PLATELET COUNT 230 X10'3 (140-440); RED BLOOD COUNT 3.15 X10'6 (4.20-5.60); RED CELL DISTRIBUTION WIDTH 14.6 % (11.5-14.5); WHITE BLOOD COUNT 5.2 X10'3 (4.5-11.0)
--- NOTE | 2020-04-23 06:33 | NUR ---
Patient in room PCU 3017. I have received report from LESA SANON and had the opportunity to ask questions and assume patient care.
--- NOTE | 2020-04-23 06:34 | NUR ---
Problems reprioritized. Patient report given, questions answered & plan of care reviewed with LESA Saha.
[2020-04-23 06:50] LABS: ALANINE AMINOTRANSFERASE 23 U/L (12-78); ALBUMIN 2.5 G/DL (3.4-5.0); ALBUMIN/GLOBULIN RATIO 0.7 (1.1-1.5); ALKALINE PHOSPHATASE 104 IU/L (46-116); ANION GAP 9 (8-16); ASPARTATE AMINO TRANSFERASE 50 U/L (10-37); BILIRUBIN,TOTAL 0.4 MG/DL (0.1-1.0); BLOOD UREA NITROGEN 11 MG/DL (7-18); BUN/CREATININE RATIO 7.2 (6.6-38.0); CHLORIDE 109 MMOL/L (99-107); CREATININE 1.52 MG/DL (0.40-0.90); GLUCOSE 79 MG/DL (70-104); PHOSPHORUS 2.7 MG/DL (2.3-4.5); POTASSIUM 3.2 MMOL/L (3.5-5.1); SODIUM 145 MMOL/L (135-145); TOTAL CARBON DIOXIDE 26.7 MMOL/L (24-32); TOTAL PROTEIN 6.1 G/DL (6.4-8.2); eGFR 32 ML/MIN
--- NOTE | 2020-04-23 07:17 | NUR ---
PAGER ID: [phone] MESSAGE: DR. TERESA, [id number]/[place] REA+ 3.2. REPLACEMENT ORDERS ENDED. NEED NEW EPLACEMENT ORDERS PLEASE. ROYCE LUCAS [id number].
[2020-04-23] MEDS: levoTHYROXINE 75mcg tablet PO SCH (08:16)
[2020-04-23] MEDS: CefTRIAXone/D5W-Rocephin 1gm 50 ML IV SCH (08:17)
[2020-04-23] MEDS: metoprolol succinate 25mg (24-HOUR) SR. Tablet PO SCH (08:21)
[2020-04-23] MEDS: pantoprazole 40mg Tablet.DR PO SCH (08:21)
[2020-04-23] MEDS: lactobacillus rhamnosus 10,000 MMU CELLS/CAPSULE PO SCH ×2 (08:21→22:05)
[2020-04-23] MEDS: amiodarone 200mg tablet PO SCH (08:21)
[2020-04-23] MEDS: heparin, porcine 5000 units/ml vial SQ SCH ×2 (08:22→22:05)
[2020-04-23] MEDS ORDERED: magnesium Cl slow-release 64mg tablet PO PRN (09:20)
[2020-04-23] MEDS ORDERED: potassium Cl 20 mEq SR tablet PO PRN ×2 (09:20)
[2020-04-23] MEDS ORDERED: magnesium 4gm in 100ml NS 100 ML IV PRN (09:20)
[2020-04-23] MEDS: K and/or MAG REPLACEMENT MC SCH ×4 (09:26→20:00)
[2020-04-23] MEDS: potassium CL 10mEq/100ml bag 100 ML IV PRN ×4 (09:31→13:10)
[2020-04-23 11:00] VITALS: BP 152/70
--- NOTE | 2020-04-23 13:49 | NUR ---
Initial: pt admitted for AMS, UTI, advancing dementia per MD note. PO intake 50% average of mechanical soft foods, grind all texture per PAINTING MACHINE OPERATOR recommendations d/t difficulty chewing. Has erikter, pt confused. Last BM 04/19; receiving routine milk of magnesia last given 04/22. TSH was significantly high at 97.82, receiving synthroid. Rec: 1. continue heart healthy, mechanical soft diet grind all per PAINTING MACHINE OPERATOR recs 2. add fruit smoothie to dinner d/w dietary, encourage PO intake 3. routine bowel care 4. weight per rx Addendum: 04/23/20 at [address] Amended: Links added.
[2020-04-23] MEDS ORDERED: ondansetron 4mg rapidly disintigrating tab PO PRN (14:20)
[2020-04-23 15:00] VITALS: BP 131/111
[2020-04-23 18:00] VITALS: BP 136/69
--- NOTE | 2020-04-23 18:15 | NUR ---
RECEIVED REPORT FROM ROYCE MCFADDEN AND ASSUMED PATIENT CARE
--- NOTE | 2020-04-23 18:39 | NUR ---
Problems reprioritized. Patient report given, questions answered & plan of care reviewed with LESA EDDY.
[2020-04-23 22:00] VITALS: BP 173/86
[2020-04-23] MEDS: atorvastatin 10mg tablet PO SCH (22:05)
[2020-04-24 02:00] VITALS: BP 157/71
--- NOTE | 2020-04-24 06:00 | NUR ---
Patient in room U 3017. I have received report from Leonor MCFADDEN and had the opportunity to ask questions and assume patient care. Patient is sleeping . Sitter is present.
--- NOTE | 2020-04-24 06:00 | NUR ---
Patient in room U 3017. I have received report from Leonor MCFADDEN and had the opportunity to ask questions and assume patient care. patient resting in bed. Sitter present
--- NOTE | 2020-04-24 06:21 | NUR ---
REPORT GIVEN TO RIAZ MCFADDEN
[2020-04-24 07:00] VITALS: BP 150/78
[2020-04-24] MEDS: K and/or MAG REPLACEMENT MC SCH ×2 (08:00)
[2020-04-24 08:10] LABS: BASOPHILS # (AUTO) 0.1 X10'3 (0-0.2); BASOPHILS % (AUTO) 1.3 % (0-1); EOSINOPHILS # (AUTO) 0.2 X10'3 (0-0.9); EOSINOPHILS % (AUTO) 2.6 % (0-6); HEMATOCRIT 36.2 % (35.0-45.0); HEMOGLOBIN 12.2 g/dl (12.0-16.0); LYMPHOCYTES # (AUTO) 1.4 X10'3 (1.1-4.8); MEAN CORPUSCULAR HGB CONC 33.8 g/dL (33.0-36.5); MEAN CORPUSCULAR VOLUME 100.6 FL (78-98); MEAN PLATELET VOLUME 6.6 FL (7.4-10.4); MONOCYTES # (AUTO) 0.5 X10'3 (0-0.9); MONOCYTES % (AUTO) 7.8 % (2-12); NEUTROPHILS # (AUTO) 3.8 X10'3 (1.8-7.7); NEUTROPHILS % (AUTO) 64.3 % (42-75); PLATELET COUNT 234 X10'3 (140-440); RED CELL DISTRIBUTION WIDTH 14.4 % (11.5-14.5); WHITE BLOOD COUNT 5.9 X10'3 (4.5-11.0)
[2020-04-24 08:22] LABS: ALANINE AMINOTRANSFERASE 27 U/L (12-78); ALBUMIN/GLOBULIN RATIO 0.7 (1.1-1.5); ALKALINE PHOSPHATASE 121 IU/L (46-116); ANION GAP 9 (8-16); ASPARTATE AMINO TRANSFERASE 54 U/L (10-37); BILIRUBIN,TOTAL 0.6 MG/DL (0.1-1.0); BLOOD UREA NITROGEN 8 MG/DL (7-18); BUN/CREATININE RATIO 5.9 (6.6-38.0); CALCIUM 8.5 MG/DL (8.5-10.1); CHLORIDE 108 MMOL/L (99-107); CREATININE 1.35 MG/DL (0.40-0.90); GLUCOSE 75 MG/DL (70-104); MAGNESIUM 2.2 MG/DL (1.5-2.4); PHOSPHORUS 2.4 MG/DL (2.3-4.5); POTASSIUM 4.1 MMOL/L (3.5-5.1); SODIUM 143 MMOL/L (135-145); TOTAL CARBON DIOXIDE 26.4 MMOL/L (24-32); TOTAL PROTEIN 7.3 G/DL (6.4-8.2); eGFR 37 ML/MIN
[2020-04-24] MEDS: levoTHYROXINE 75mcg tablet PO SCH (08:25)
[2020-04-24] MEDS: amiodarone 200mg tablet PO SCH (08:25)
[2020-04-24] MEDS: CefTRIAXone/D5W-Rocephin 1gm 50 ML IV SCH (08:25)
[2020-04-24] MEDS: pantoprazole 40mg Tablet.DR PO SCH (08:26)
[2020-04-24] MEDS: lactobacillus rhamnosus 10,000 MMU CELLS/CAPSULE PO SCH (08:26)
[2020-04-24] MEDS: heparin, porcine 5000 units/ml vial SQ SCH (08:26)
[2020-04-24] MEDS: metoprolol succinate 25mg (24-HOUR) SR. Tablet PO SCH (08:26)
[2020-04-24] MEDS: LORazepam 2 mg/ml vial IV PRN ×2 (08:27→16:32)
[2020-04-24 11:00] VITALS: BP 144/69
[2020-04-24] MEDS: normal saline 1000ml 1,000 ML IV SCH (13:13)
--- NOTE | 2020-04-24 17:55 | NUR ---
Patient was discharged to home. All belongings went with patient. PIV was removed with cannula intact. There were no new RXs. Discharge instructions were given to . He verbalized understanding. Spoke with juan Lay on the phone and he was going to review instructions as well. Patient was only oriented to self at time of discharge and was alert. Vital signs were stable . She went home in a private vehicle with her .
== END 2020-04-24 17:54 | disposition home or self-care (01) | DRG 682 ==
LOC: ER 07:41 → ED HOLD 13:01 → UNDOADMIN 13:01 → PCU 3S 16:13
PROVIDERS: ADMIT Family Medicine; ATTEND Internal Medicine
DX: N17.9 Acute kidney failure, unspecified (principal); G93.41 Metabolic encephalopathy; N39.0 Urinary tract infection, site not specified; D64.9 Anemia, unspecified; F03.90 Unspecified dementia, unspecified severity, without behavioral disturbance, psychotic disturbance, mood disturbance, and anxiety; K21.9 Gastro-esophageal reflux disease without esophagitis; E78.5 Hyperlipidemia, unspecified; I10 Essential (primary) hypertension; I48.91 Unspecified atrial fibrillation; E11.9 Type 2 diabetes mellitus without complications; B96.20 Unspecified Escherichia coli [E. coli] as the cause of diseases classified elsewhere; E87.6 Hypokalemia; Z90.49 Acquired absence of other specified parts of digestive tract; Z79.899 Other long term (current) drug therapy; E03.9 Hypothyroidism, unspecified; Z95.1 Presence of aortocoronary bypass graft; Z87.440 Personal history of urinary (tract) infections
CPT/HCPCS: 36415; 70450; 71045; 76937; 80053; 80061; 81001; 82948; 83036; 83605; 83690; 83735; 84100; 84439; 84443; 84484; 85025; 85610; 87040; 87077; 87081; 87088; 87186; 92508; 92616; 93005; 93306; 97116; 97161; 97530; 99285; C9113; G0378; J0696; J1644; J2060; J2270; J2405; J3480; J7030

== ENCOUNTER 2020-06-29 13:08 | Emergency (ER) | payer MEDICARE, BC ==
[~2020-06-29] VITALS: Ht 152.4 cm; Wt 54.5 kg
[~2020-06-29 13:08] MED LIST changes: -HYDR-3965 PO; +METO25TA6 PO; -SYN0.088T PO
[2020-06-29] MEDS ORDERED: acetaminophen 325mg tablet PO ONE (15:35)
--- NOTE | 2020-06-29 16:57 | NUR ---
SON [phone]
[2020-06-29 17:26] LABS: CLARITY,URINE CLEAR (Clear); COLOR,URINE YELLOW (Yellow); GLUCOSE, URINE NEGATIVE (Neg); KETONES,URINE NEGATIVE (Neg); LEUKOCYTE ESTERASE ,URINE TRACE (Neg); NITRITES, URINE NEGATIVE (Neg); OCCULT BLOOD,URINE NEGATIVE (Neg); PH,URINE 6.5 (4.8-8.0); PROTEIN,URINE NEGATIVE (Neg)
[2020-06-29 17:30] LABS: UA COLLECTION TYPE STRAIGHT CATH
[2020-06-29 17:35] LABS: BACTERIA,URINE FEW /HPF (Neg); MUCUS STRANDS NONE SEEN /LPF (Neg); RBC,URINE 0-2 /HPF (0-2); RENAL CELLS, URINE FEW /HPF; SQUAMOUS EPITHELIAL CELL,UR NONE SEEN /LPF (FEW); WBC,URINE 0-4 /HPF (0-4)
[2020-06-29 17:41] LABS: BASOPHILS # (AUTO) 0.1 X10'3 (0-0.2); BASOPHILS % (AUTO) 0.8 % (0-1); EOSINOPHILS # (AUTO) 0.1 X10'3 (0-0.9); EOSINOPHILS % (AUTO) 1.3 % (0-6); HEMATOCRIT 39.1 % (35.0-45.0); HEMOGLOBIN 13.2 g/dl (12.0-16.0); LYMPHOCYTES # (AUTO) 1.4 X10'3 (1.1-4.8); LYMPHOCYTES % (AUTO) 20.8 % (21-51); MEAN CORPUSCULAR HEMOGLOBIN 32.9 PG (27.0-31.0); MEAN CORPUSCULAR HGB CONC 33.6 g/dL (33.0-36.5); MEAN CORPUSCULAR VOLUME 97.8 FL (78-98); MEAN PLATELET VOLUME 7.6 FL (7.4-10.4); MONOCYTES # (AUTO) 0.5 X10'3 (0-0.9); MONOCYTES % (AUTO) 6.7 % (2-12); NEUTROPHILS # (AUTO) 4.8 X10'3 (1.8-7.7); NEUTROPHILS % (AUTO) 70.4 % (42-75); PLATELET COUNT 203 X10'3 (140-440); RED CELL DISTRIBUTION WIDTH 14.3 % (11.5-14.5); WHITE BLOOD COUNT 6.8 X10'3 (4.5-11.0)
[2020-06-29 17:51] LABS: ALANINE AMINOTRANSFERASE 8 U/L (12-78); ALBUMIN 3.6 G/DL (3.4-5.0); ALBUMIN/GLOBULIN RATIO 0.9 (1.1-1.5); ALKALINE PHOSPHATASE 142 IU/L (46-116); ANION GAP 9 (8-16); ASPARTATE AMINO TRANSFERASE 37 U/L (10-37); BILIRUBIN,TOTAL 1.1 MG/DL (0.1-1.0); BLOOD UREA NITROGEN 13 MG/DL (7-18); BUN/CREATININE RATIO 9.5 (6.6-38.0); CALCIUM 9.2 MG/DL (8.5-10.1); CHLORIDE 102 MMOL/L (99-107); CREATININE 1.37 MG/DL (0.40-0.90); GLUCOSE 89 MG/DL (70-104); POTASSIUM 3.3 MMOL/L (3.5-5.1); SODIUM 141 MMOL/L (135-145); TOTAL CARBON DIOXIDE 30.2 MMOL/L (24-32); TOTAL PROTEIN 7.7 G/DL (6.4-8.2); eGFR 36 ML/MIN
[2020-06-29 17:56] LABS: TROPONIN I < 0.04 NG/ML (0.0-0.05)
[2020-06-29] MEDS ORDERED: iohexol 300mg/ml 100ml inj. ONE (18:26)
[2020-06-29 19:32] VITALS: BP 177/85
== END 2020-06-29 19:35 | disposition home or self-care (01) ==
LOC: ER 13:10
DX: S00.03XA Contusion of scalp, initial encounter (principal); M25.522 Pain in left elbow; S32.401A Unspecified fracture of right acetabulum, initial encounter for closed fracture; S22.39XA Fracture of one rib, unspecified side, initial encounter for closed fracture; R07.81 Pleurodynia; M25.562 Pain in left knee; W01.198A Fall on same level from slipping, tripping and stumbling with subsequent striking against other object, initial encounter; Y93.89 Activity, other specified; Y92.89 Other specified places as the place of occurrence of the external cause; Y99.8 Other external cause status; I10 Essential (primary) hypertension; F03.90 Unspecified dementia, unspecified severity, without behavioral disturbance, psychotic disturbance, mood disturbance, and anxiety; Z91.81 History of falling; E11.9 Type 2 diabetes mellitus without complications; E03.9 Hypothyroidism, unspecified; Z90.49 Acquired absence of other specified parts of digestive tract; Z95.1 Presence of aortocoronary bypass graft; Z98.890 Other specified postprocedural states; Z79.899 Other long term (current) drug therapy
CPT/HCPCS: 36415; 70450; 71045; 71250; 72125; 73070; 73560; 74176; 74177; 80053; 81001; 84484; 85025; 85610; 86885; 86900; 86901; 87088; 93005; 99285; Q9967